=== PATIENT | male | born 1945 | race Caucasian/White ===

== ENCOUNTER 2021-03-23 13:34 | Observation (INO) ==
[2021-03-23] MEDS ORDERED: Heparin IV Adult Wt-Based Low-Dose WITH Bolus Protocol STA (14:02)
[2021-03-23] MEDS ORDERED: STAT IV Infusion **Titration per Protocol STA (14:02)
[2021-03-23] MEDS ORDERED: SODIUM CHLORIDE 0.9% 1000ML 1,000 ML IV ONE (14:04)
[2021-03-23] MEDS ORDERED: dilTIAZem HCL 125 MG in DEXTROSE 5% 100 ML IV SCH (14:15)
[2021-03-23] MEDS ORDERED: HEPARIN SOD (PORCINE) 1000 UNIT/ML IV ONE (14:18)
--- NOTE | 2021-03-23 14:26 | XRay Report ---
XR chest 1V portable HISTORY: 75 years-old Male Dysrhythmia COMPARISON: None TECHNIQUE: Portable AP view of the chest FINDINGS: Cardiomediastinal and hilar silhouettes are within normal limits. No pneumothorax, pleural effusion, airspace consolidation or overt pulmonary edema. Degenerative changes of the shoulders and spine. IMPRESSION: No acute process. ACT 112: Negative or not required by law. The above report was generated using voice recognition software. It may contain grammatical, syntax o r spelling errors. Electronically signed by: Huey Campos M.D. 03/23/2021 2:24 PM
[2021-03-23] MEDS ORDERED: HEPARIN SODIUM/DEXTROSE 25,000 UNITS/500 ML BAG IV SCH (14:30)
--- NOTE | 2021-03-23 14:30 | Emergency Department Note ---
Impression & Plan Atrial flutter with rapid ventricular response, Chest pain, Fatigue ED Provider Note Provider: Robson Schultz MD DATE OF SERVICE: 03/23/2021 CHIEF COMPLAINT: Fatigue, palpitations HISTORY OF PRESENT ILLNESS: Patient is a 75-year old gentleman history of BPH and hypertension presenting here today via ambulance from the [facility] urgent care. Patient states over the past approximately 3 weeks has had some episodes of fatigue. He is very active normally and normally cycles but this is been a bit more difficult. Was a little bit of onset of a little bit of left chest and arm pain 1 out of 10 but he states is minimal in nature. States he donated blood about 3 weeks ago and they noted there that his pulse was occasionally irregular. Denies any known history of arrhythmias. Patient received nitroglycerin and aspirin prior to arrival. No real change in his minimal chest and left arm discomfort. He denies any significant shortness of breath or leg swelling. No fevers reported. REVIEW OF SYSTEMS: A total of 10 review of systems was obtained and negative except as stated above in the HPI. 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 NECK: Trachea midline. LUNGS: Airway patent. No retractions. Breath sounds clear HEART: Regular tachycardic rate and rhythm. No chest wall tenderness ABDOMEN: Soft and non-tender, without guarding or rebound. SKIN: Acyanotic, warm, dry, without rashes EXTREMITIES: Without swelling, tenderness or deformity NEUROLOGICAL: No focal deficits. No aphasia. No facial droop or slurred speech. Ambulatory EK bpm atrial fibrillation with variable AV block. No acute ST segment elevation noted with some slight lateral ST depression noted. QTc 532. CONTINUOUS CARDIAC MONITORING: was ordered and showed a heart rate of 100s-130s bpm in atrial flutter variable AV block Patient's laboratory studies and imaging reviewed. Differential includes Premature contractions, electrolyte abnormality, cardiac dysrhythmia, thyroid dysfunction, pulmonary embolism, infection, gastrointe stinal, as well as other pathologies. IMPRESSION/MEDICAL DECISION MAKING: Patient received aspirin prior to arrival but not normally on. Appears to be a new onset atrial flutter. Do not believe the patient is having an acute ST segment elevation UT. Patient with minimal 1 at a time chest and left arm discomfort. Possibly right related. No evidence of acute heart failure on clinical exam. Electrolytes and thyroid studies were sent. No significant abnormality. Given some magnesium as well some IV fluid for hydration. Will attempt a diltiazem drip gently to try and promote rate control versus possible conversion. Patient is not unstable but blood pressures are in the low 100s thus we will start with a drip and avoid significant bolus. Discussed with the patient and will anticoagulate this time. Onset of symptoms may be several weeks ago and thus hesitant to perform any direct cardioversion at this time unless patient becomes unstable. Patient requires admission for further cardiac evaluation and treatment of his new onset atrial flutter. DIAGNOSIS: New onset atrial flutter, fatigue, chest pain DISPOSITION: Hospitalist will evaluate Patient was agreeable with this plan. Critical Care I have personally spent 31 minutes of critical care time in the direct management of this patient. This includes bedside care, interpretation of diagnostic studies, and testing, discussion with consultants, patient, and other required patient management activities. These 31 minutes is in excess of all separately billable procedures. Past Med/Surg History Medical History Benign prostatic hyperplasia (BPH) with urinary urgency Surgical History No pertinent past surgical history Social History Smoking Status: Never smoker Preferred Language: Latvian Feels Safe at Home: Yes Allergies Allergies Allergy/AdvReac Type Severity Reaction Status Date / Time No Known Allergies Allergy Verified 03/23/21 15:03 Home Meds Home Medications Medication Instructions Recorded Confirmed indapamide 2.5 mg tablet 2.5 mg PO DAILY 03/23/21 03/23/21 pravastatin 40 mg tablet 40 mg PO HS 03/23/21 03/23/21 quinapril 40 mg tablet 60 mg PO DAILY 03/23/21 03/23/21 tamsulosin 0.4 mg capsule 0.4 mg PO DAILY 03/23/21 03/23/21 Results & Data (ED) Vital Signs Vital Signs - 24 hr 03/23/21 13:40 03/23/21 14:08 03/23/21 15:01 Temperature 36.7 C Temperature Source Oral Pulse Rate 136 H Pulse Rate [Right Finger] 108 H Respiratory Rate 24 20 Respiratory Effort / Characteristics Non-Labored Non-Labored Non-Labored Respiratory Depth Normal Normal Blood Pressure 93/77 L Blood Pressure [Right Arm] 111/70 Blood Pressure Mean 82 Blood Pressure Mean [Right Arm] 83 Pulse Oximetry 97 98 Oxygen Delivery Method Room Air Room Air Room Air Sepsis Recent Fever Within 48 Hours No Sepsis New/Unexplained Change in Mental Status N/A Sepsis Action Taken by Nursing No Action Required 03/23/21 15:13 Temperature Temperature Source Pulse Rate Pulse Rate [Right Finger] 132 H Respiratory Rate 16 Respiratory Effort / Characteristics Non-Labored Respiratory Depth Normal Blood Pressure Blood Pressure [Right Arm] 139/85 Blood Pressure Mean Blood Pressure Mean [Right Arm] 103 Pulse Oximetry 97 Oxygen Delivery Method Room Air Sepsis Recent Fever Within 48 Hours Sepsis New/Unexplained Change in Mental Status Sepsis Action Taken by Nursing Laboratory Data Result diagrams: 03/23/21 14:24 03/23/21 14:24 Lab Results 03/23/21 03/23/21 03/23/21 Range/Units 14:24 14:24 14:24 WBC 6.46 (4.8-10.8) K/uL RBC 4.45 L (4.7-6.1) M/uL Hgb 13.9 L (14.0-18.0) g/dL Hct 40.7 L (42-52) % MCV 91.5 (80-100) fL MCH 31.2 (25-34) pg MCHC 34.2 (32-36) g/dL RDW Std Deviation 43.4 (36.4-46.3) fL RDW Coeff of Devon 13.0 (11.5-14.5) % Plt Count 196 (130-400) K/uL MPV 9.6 (7.4-10.4) fL Immature Gran % (Auto) 0.2 % Neut % (Auto) 63.4 % Lymph % (Auto) 29.6 % [place] % (Auto) 6.0 % Eos % (Auto) 0.6 % Baso % (Auto) 0.2 % Neut # (Auto) 4.10 (1.4-6.5) K/uL Lymph # (Auto) 1.91 (1.2-3.4) K/uL [place] # (Auto) 0.39 (0.11-0.59) K/uL Eos # (Auto) 0.04 (0-0.5) K/uL Baso # (Auto) 0.01 (0-0.2) K/uL Immature Gran # (Auto) 0.01 (0.00-0.02) K/uL PT 9.9 (9.0-12.0) Seconds INR 1.0 (0.9-1.1) APTT 27.9 (21.0-31.0) Seconds PTT Ratio 1.1 Sodium 139 (136-145) mmol/L Potassium 3.6 (3.5-5.1) mmol/L Chloride 104 (98-107) mmol/L Carbon Dioxide 31 (21-32) mmol/L Anion Gap 4.0 (3-11) BUN 20 H (7-18) mg/dl Creatinine 1.08 (0.6-1.4) mg/dl Est Cr Clr Drug Dosing 67.1 ml/min Est GFR ( Amer) 78.0 ml/min Est GFR (Non-Af Amer) 67.3 ml/min BUN/Creatinine Ratio 18.9 (10-20) Glucose 107 H (70-99) mg/dl Calcium 9.3 (8.5-10.1) mg/dl Magnesium 2.2 (1.8-2.4) mg/dl Total Bilirubin 0.6 (0.2-1) mg/dl AST 22 (15-37) U/L ALT 33 (12-78) U/L Alkaline Phosphatase 81 (45-117) U/L Troponin I < 0.015 (0-0.045) ng/ml Total Protein 7.1 (6.4-8.2) gm/dl Albumin 4.0 (3.4-5.0) gm/dl Globulin 3.1 (2.5-4.0) gm/dl Albumin/Globulin Ratio 1.3 (0.9-2) TSH 1.890 (0.300-4.500) uIu/ml Lyme Disease IgG Ab (Negative) Lyme Disease IgM Ab (Negative) 03/23/21 Range/Units 14:24 WBC (4.8-10.8) K/uL RBC (4.7-6.1) M/uL Hgb (14.0-18.0) g/dL Hct (42-52) % MCV (80-100) fL MCH (25-34) pg MCHC (32-36) g/dL RDW Std Deviation (36.4-46.3) fL RDW Coeff of Devon (11.5-14.5) % Plt Count (130-400) K/uL MPV (7.4-10.4) fL Immature Gran % (Auto) % Neut % (Auto) % Lymph % (Auto) % [place] % (Auto) % Eos % (Auto) % Baso % (Auto) % Neut # (Auto) (1.4-6.5) K/uL Lymph # (Auto) (1.2-3.4) K/uL [place] # (Auto) (0.11-0.59) K/uL Eos # (Auto) (0-0.5) K/uL Baso # (Auto) (0-0.2) K/uL Immature Gran # (Auto) (0.00-0.02) K/uL PT (9.0-12.0) Seconds INR (0.9-1.1) APTT (21.0-31.0) Seconds PTT Ratio Sodium (136-145) mmol/L Potassium (3.5-5.1) mmol/L Chloride (98-107) mmol/L Carbon Dioxide (21-32) mmol/L Anion Gap (3-11) BUN (7-18) mg/dl Creatinine (0.6-1.4) mg/dl Est Cr Clr Drug Dosing ml/min Est GFR ( Amer) ml/min Est GFR (Non-Af Amer) ml/min BUN/Creatinine Ratio (10-20) Glucose (70-99) mg/dl Calcium (8.5-10.1) mg/dl Magnesium (1.8-2.4) mg/dl Total Bilirubin (0.2-1) mg/dl AST (15-37) U/L ALT (12-78) U/L Alkaline Phosphatase (45-117) U/L Troponin I (0-0.045) ng/ml Total Protein (6.4-8.2) gm/dl Albumin (3.4-5.0) gm/dl Globulin (2.5-4.0) gm/dl Albumin/Globulin Ratio (0.9-2) TSH (0.300-4.500) uIu/ml Lyme Disease IgG Ab Negative (Negative) Lyme Disease IgM Ab Negative (Negative) Administered Medications Diltiazem HCl 125 mg/ Dextrose 125 mls @ 5 mls/hr IV .Q24H XAVIER; Protocol Stop: 04/22/21 14:14 Last Admin: 03/23/21 15:02 Dose: 5 mg/hr, 5 mls/hr Documented by: [id number] Cosigned by: [id number] Heparin Sodium/Dextrose (Heparin Sodium/Dextrose) 25,000 units in 500 mls @ 0.02 mls/hr IV .Q24H XAVIER; Protocol Stop: 04/22/21 14:29 Last Admin: 03/23/21 14:57 Dose: 950 units/hr, 19 mls/hr Documented by: [id number] Cosigned by: [id number] Discontinued Medications Heparin Sodium (Porcine) (Heparin Sod (Porcine) 1000 Unit/Ml) 1 units IV NOW ONE Stop: 03/23/21 14:19 Last Admin: 03/23/21 14:53 Dose: 4,000 units Documented by: [id number] Cosigned by: [id number] Heparin Sodium/Dextrose (Heparin Iv Adult Wt-Based Low-Dose With Bolus Protocol) 1 ea N/A NOW STA; Protocol Stop: 03/23/21 14:03 Last Admin: 03/23/21 15:16 Dose: Not Given Documented by: [id number] Sodium Chloride (Nss 1000ml) 1,000 mls @ 999 mls/hr IV .Q1H1M ONE Stop: 03/23/21 15:04 Last Admin: 03/23/21 14:51 Dose: 999 mls/hr Documented by: [id number] Miscellaneous (Stat Iv Infusion Titration Per Protocol) 1 ea N/A NOW STA Stop: 03/23/21 14:03 Last Admin: 03/23/21 14:57 Dose: 1 ea Documented by: [id number] Imaging Data Radiologist's Impression: Chest X-Ray 03/23/21 14:02 XR chest 1V portable HISTORY: 75 years-old Male Dysrhythmia COMPARISON: None TECHNIQUE: Portable AP view of the chest FINDINGS: Cardiomediastinal and hilar silhouettes are within normal limits. No pneumothorax, pleural effusion, airspace consolidation or overt pulmonary edema. Degenerative changes of the shoulders and spine. IMPRESSION: No acute process. ACT 112: Negative or not required by law. The above report was generated using voice recognition software. It may contain grammatical, syntax or spelling errors. Electronically signed by: Huey Campos M.D. 03/23/2021 2:24 PM Discharge Plan Visit Data Chief Complaint: Chest Pain ED Provider: Robson Schultz Discharge Problem: Atrial flutter with rapid ventricular response, Chest pain, Fatigue Patient Disposition: Being Evaluated by Hospitalist Forms Stand Alone Forms: [facility] Prescriptions Prescriptions: No Action indapamide 2.5 mg tablet 2.5 mg PO DAILY RF: 0 pravastatin 40 mg tablet 40 mg PO HS RF: 0 quinapril 40 mg tablet 60 mg PO DAILY RF: 0 tamsulosin 0.4 mg capsule 0.4 mg PO DAILY RF: 0 Referrals Referrals: Aaron Stevens MD [Primary Care Provider] - Discharge Problem: Chest pain Qualifiers: Chest pain type: unspecified Qualified Code(s): R07.9 - Chest pain, unspecified Fatigue Qualifiers: Fatigue type: unspecified Qualified Code(s): R53.83 - Other fatigue
[2021-03-23 14:35] LABS: Basophils # (auto) 0.01 K/uL (0-0.2); Basophils % (auto) 0.2 %; Eosinophils # (auto) 0.04 K/uL (0-0.5); Eosinophils % (auto) 0.6 %; Hematocrit (blood only) 40.7 % (42-52); Hemoglobin 13.9 g/dL (14.0-18.0); Immature Granulocytes # (auto) 0.01 K/uL (0.00-0.02); Immature Granulocytes % (auto) 0.2 %; Lymphocytes # (auto) 1.91 K/uL (1.2-3.4); Lymphocytes % (auto) 29.6 %; Mean Corpuscular Hemoglobin 31.2 pg (25-34); Mean Corpuscular Hgb Conc 34.2 g/dL (32-36); Mean Corpuscular Volume 91.5 fL (80-100); Mean Platelet Volume 9.6 fL (7.4-10.4); Monocytes # (auto) 0.39 K/uL (0.11-0.59); Neutrophils % (auto) 63.4 %; Platelet Count 196 K/uL (130-400); RDW Standard Deviation 43.4 fL (36.4-46.3); Red Blood Count 4.45 M/uL (4.7-6.1); White Blood Count 6.46 K/uL (4.8-10.8)
[2021-03-23 14:49] LABS: Partial Thromboplastin Ratio 1.1; Partial Thromboplastin Time 27.9 Seconds (21.0-31.0); Prothrombin Time 9.9 Seconds (9.0-12.0)
[2021-03-23 14:54] LABS: Alanine Aminotransferase 33 U/L (12-78); Aspartate Aminotransferase 22 U/L (15-37); BUN Creatinine Ratio 18.9 (10-20); Blood Urea Nitrogen 20 mg/dl (7-18); Calcium 9.3 mg/dl (8.5-10.1); Carbon Dioxide 31 mmol/L (21-32); Chloride 104 mmol/L (98-107); Creatinine Clr Calc Pharmacy 67.1 ml/min; Est GFR (Non-African American) 67.3 ml/min; Glucose 107 mg/dl (70-99); Magnesium 2.2 mg/dl (1.8-2.4); Potassium 3.6 mmol/L (3.5-5.1); Sodium 139 mmol/L (136-145)
[2021-03-23 15:05] LABS: Albumin Globulin Ratio 1.3 (0.9-2); Alkaline Phosphatase 81 U/L (45-117); Bilirubin,Total 0.6 mg/dl (0.2-1); Globulin 3.1 gm/dl (2.5-4.0); Total Protein 7.1 gm/dl (6.4-8.2); Troponin I < 0.015 ng/ml (0-0.045)
[2021-03-23 15:19] LABS: Lyme Ab IgG w/WB Rflx Negative (Negative); Lyme Ab IgM w/WB Rflx Negative (Negative)
[2021-03-23] MEDS ORDERED: POTASSIUM CHLORIDE CRTAB 20 MEQ TABCR PO ONE (15:26)
[2021-03-23] MEDS: MAGNESIUM SULFATE / D5W 1 GM/100 ML BAG IV SCH ×2 (15:39→16:38)
--- NOTE | 2021-03-23 16:07 | History & Physical Report ---
Date of Service March 23, 2021 Assessment & Plan (1) Atrial flutter with rapid ventricular response: Plan: -Admit to telemetry -Patient presenting by referral of [facility] for evaluation of new onset atrial flutter with RVR. Patient has had palpitations and decreased exercise tolerance over the past few days. -In the ED, EKG shows atrial flutter with a variable conduction block with rates in the 120s -?? Due to lack of CPAP use over the past 1 month due to machine recall -Labs and CXR unremarkable -Started on IV diltiazem and heparin drips in the ED, continue both -Start metoprolol 12.5 mg PO BID -Trend troponin -Resting echo -Cardiology consult, input appreciated (2) HTN (hypertension): Plan: -BP on the lower side on presentation, likely due to tachycardia -Hold home indapamide and quinapril due to diltiazem and metoprolol as above (3) ANA on CPAP: Plan: -CPAP as per home settings (4) DVT prophylaxis: Plan: -On IV heparin drip History of Present Illness Chief Complaint: Palpitations Primary Care Provider: Aaron Stevens MD 75 year old male with PMH HTN, BPH, ANA on CPAP, prediabetes, and other problems listed below who presents to the ED for evaluation of palpitations. Patient reports that over the past few days he has been having palpitations and increased fatigue. 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 Today he had a mild left sided chest pain. He has a stethoscope at home and was able to listen to this own heart and noted it was fast and irregular. Patient presented to [facility] and was found to be in a. flutter RVR. He was sent to the ED for further evaluation. Patient reports he otherwise has been well recently. He denies shortness of breath. No lightheadedness, dizziness, diaphoresis, or syncopal events. He denies abdominal pain, nausea, vomiting, and diarrhea. No urinary symptoms. Patient reports that he has been unable to use his CPAP for the past 1 month due to machine recall. In the ED, EKG shows an atrial flutter with variable conduction rate in the 120s. Labs are unremarkable. Patient was started on diltiazem and heparin drips. He was also given some IVF. Allergies Allergy/AdvReac Type Severity Reaction Status Date / Time No Known Allergies Allergy Verified 03/23/21 15:03 Home Medications Medication Instructions Recorded Confirmed Type indapamide 2.5 mg tablet 2.5 mg PO DAILY 03/23/21 03/23/21 History multivitamin 1 tab PO DAILY 03/23/21 03/23/21 History pravastatin 40 mg tablet 40 mg PO HS 03/23/21 03/23/21 History quinapril 40 mg tablet 60 mg PO DAILY 03/23/21 03/23/21 History tamsulosin 0.4 mg capsule 0.4 mg PO DAILY 03/23/21 03/23/21 History Past Med/Surg History Medical History Benign prostatic hyperplasia (BPH) with urinary urgency History of COVID-19 HLD (hyperlipidemia) HTN (hypertension) ANA on CPAP Prediabetes Surgical History H/O arthroscopic knee surgery H/O shoulder surgery Family History (Updated 03/23/21 @ 17:21 by LEIA Pappas) Father Heart disease Social History Smoking Status: Never smoker Hx Alcohol Use: Yes Alcohol Intake Frequency: Monthly or Less Preferred Language: Eritrean Feels Safe at Home: Yes Review of Systems Review of Systems: ROS per HPI, all other systems reviewed and negative Physical Exam Physical Exam: please refer to Dr. Roldan's addendum for physical exam Results & Data Results & Data ([facility]) Vital Signs (Past 12 Hours) Vital Signs Temp Pulse Pulse Resp BP BP Pulse Ox 03/23/21 15:13 132 H 16 139/85 97 03/23/21 15:01 108 H 20 111/70 98 03/23/21 13:40 36.7 C 136 H 24 93/77 L 97 Laboratory Results Short CBC 03/23/21 Range/Units 14:24 WBC 6.46 (4.8-10.8) K/uL Hgb 13.9 L (14.0-18.0) g/dL Hct 40.7 L (42-52) % Plt Count 196 (130-400) K/uL BMP 03/23/21 14:24 Sodium 139 Potassium 3.6 Chloride 104 Carbon Dioxide 31 BUN 20 H Creatinine 1.08 Glucose 107 H Calcium 9.3 Cardiac Enzymes 03/23/21 Range/Units 14:24 Troponin I < 0.015 (0-0.045) ng/ml Liver Function 03/23/21 Range/Units 14:24 Total Bilirubin 0.6 (0.2-1) mg/dl AST 22 (15-37) U/L ALT 33 (12-78) U/L Alkaline Phosphatase 81 (45-117) U/L Albumin 4.0 (3.4-5.0) gm/dl Diagnostic Findings Chest X-Ray 03/23/21 14:02 XR chest 1V portable HISTORY: 75 years-old Male Dysrhythmia COMPARISON: None TECHNIQUE: Portable AP view of the chest FINDINGS: Cardiomediastinal and hilar silhouettes are within normal limits. No pneumothorax, pleural effusion, airspace consolidation or overt pulmonary edema. Degenerative changes of the shoulders and spine. IMPRESSION: No acute process. ACT 112: Negative or not required by law. The above report was generated using voice recognition software. It may contain grammatical, syntax or spelling errors. Electronically signed by: Huey Campos M.D. 03/23/2021 2:24 PM Code Status & VTE Plan VTE Prophylaxis Plan VTE Prophylaxis will be ordered: No Supervising Physician Co-Signing Physician Notes Patient is a 75-year-old male with history of hypertension, obstructive sleep apnea, prediabetes and other medical problems presents with history of palp itations, generalized fatigue, minimal left chest discomfort. Please review HPI for complete details of presentation. He was found to be in atrial flutter RVR while in ED. He denies any dizziness, syncopal episode, bleeding issues, nausea, vomiting, fever, chills. Started on IV heparin and Cardizem drip while in ED. TSH within normal limits. Chest x-ray showed no acute process. He admits to being noncompliant with CPAP lately as it was recalled. Physical Exam: Vitals signs as noted above General Appearance:Moderately built and nourished, no apparent distress Head: normocephalic, Atraumatic Eyes: normal inspection, EOMI Neck: supple, Trachea midline Respiratory/Chest: Normal breath sounds, CTA, No accessory muscle use Cardiovascular: Irregularly irregular, tachycardia, No murmur Abdomen/GI:Soft, Non tender, Bowel sounds present Extremities/Musculoskeletal:normal inspection, no edema Neurologic/Psych:AAOX3, grossly no focal neurological deficits Skin: normal color, warm Atrial flutter RVR TSH within normal limits Agree with IV Cardizem, heparin drip Agree with starting metoprolol Cardiology consulted Monitor and replace electrolytes as needed Gentle IV fluids Prediabetes Update HbA1c I personally reviewed the record. Patient is interviewed and examined at bedside. Patient's care is coordinated with Yoli Farmer [employer]. Please refer to the documentation above for details of patient's presentation and for discussion of other issues.
[2021-03-23] MEDS ORDERED: ALPRAZolam 0.25 MG TABLET PO PRN (18:37)
[2021-03-23] MEDS ORDERED: METOPROLOL TARTRATE 25 MG TAB PO SCH (19:38)
[2021-03-23] MEDS ORDERED: SODIUM CHLORIDE 0.9% 1000ML 1,000 ML IV SCH (19:38)
[2021-03-23] MEDS ORDERED: ACETAMINOPHEN 325 MG TAB PO PRN (19:38)
[2021-03-23] MEDS ORDERED: METOPROLOL TARTRATE 25 MG TAB PO STA (19:42)
[2021-03-23] MEDS ORDERED: PRAVASTATIN SOD 40 MG TAB PO SCH (21:00)
--- NOTE | 2021-03-23 23:02 | Communication Note ---
Date of Service: March 23, 2021 Hematuria noted by RN sometime after Dugan catheter insertion. Dugan catheter insertion procedure smooth as per RN. Patient without abdominal/flank complaints as per RN. AP Painless hematuria Ongoing IV anticoagulation for atrial flutter Check UA rule out UTI Check CBC Hold IV heparin for now. Resume IV heparin if hemoglobin stable. Will relay to AM provider.
[2021-03-23 23:24] LABS: Basophils # (auto) 0.01 K/uL (0-0.2); Basophils % (auto) 0.1 %; Eosinophils # (auto) 0.02 K/uL (0-0.5); Eosinophils % (auto) 0.2 %; Hematocrit (blood only) 41.7 % (42-52); Hemoglobin 14.2 g/dL (14.0-18.0); Immature Granulocytes # (auto) 0.01 K/uL (0.00-0.02); Immature Granulocytes % (auto) 0.1 %; Lymphocytes # (auto) 1.63 K/uL (1.2-3.4); Lymphocytes % (auto) 19.4 %; Mean Corpuscular Hemoglobin 31.7 pg (25-34); Mean Corpuscular Hgb Conc 34.1 g/dL (32-36); Mean Corpuscular Volume 93.1 fL (80-100); Mean Platelet Volume 9.7 fL (7.4-10.4); Monocytes # (auto) 0.41 K/uL (0.11-0.59); Monocytes % (auto) 4.9 %; Neutrophils # (auto) 6.33 K/uL (1.4-6.5); Neutrophils % (auto) 75.3 %; Platelet Count 221 K/uL (130-400); RDW Standard Deviation 44.5 fL (36.4-46.3); Red Blood Count 4.48 M/uL (4.7-6.1); White Blood Count 8.41 K/uL (4.8-10.8)
[2021-03-23 23:42] LABS: Partial Thromboplastin Ratio 1.3; Partial Thromboplastin Time 35.4 Seconds (21.0-31.0)
[2021-03-23 23:46] LABS: Appearance Urine Clear (Clear); Bacteria Urine Automated Negative (Negative); Bilirubin Urine Negative (Negative); Blood Urine 3+ (Negative); Cast Urine Automated 0 /lpf (0-5); Color Urine Orange; Glucose Urine UA Negative (Negative); Ketones Urine Negative (Negative); Leukocyte Esterase Urine Negative (Negative); Nitrite Urine Negative (Negative); Protein Urine Negative (Negative); RBC Urine Automated >30 /hpf (0-4); Urobilinogen Urine Negative (Negative)
[2021-03-23] MEDS: METOPROLOL TARTRATE 25 MG TAB PO SCH (23:57)
[2021-03-24] MEDS ORDERED: HEPARIN SOD (PORCINE) 1000 UNIT/ML IV ONE (02:00)
[2021-03-24 05:24] LABS: Hematocrit (blood only) 40.2 % (42-52); Hemoglobin 13.6 g/dL (14.0-18.0); Mean Corpuscular Hemoglobin 31.1 pg (25-34); Mean Corpuscular Hgb Conc 33.8 g/dL (32-36); Mean Platelet Volume 9.8 fL (7.4-10.4); Platelet Count 193 K/uL (130-400); RDW Coefficient of Variation 13.2 % (11.5-14.5); RDW Standard Deviation 44.2 fL (36.4-46.3); Red Blood Count 4.37 M/uL (4.7-6.1); White Blood Count 6.88 K/uL (4.8-10.8)
[2021-03-24 05:38] LABS: Calcium 9.1 mg/dl (8.5-10.1); Creatinine Clr Calc Pharmacy 71.8 ml/min; Est GFR (African American) 84.5 ml/min; Est GFR (Non-African American) 72.9 ml/min; Magnesium 2.3 mg/dl (1.8-2.4); Potassium 3.8 mmol/L (3.5-5.1)
[2021-03-24] MEDS: METOPROLOL TARTRATE 25 MG TAB PO SCH (07:09)
[2021-03-24 07:53] LABS: Partial Thromboplastin Ratio 1.7; Partial Thromboplastin Time 44.5 Seconds (21.0-31.0)
[2021-03-24] MEDS ORDERED: POTASSIUM CHLORIDE CRTAB 20 MEQ TABCR PO ONE (08:54)
[2021-03-24] MEDS ORDERED: TAMSULOSIN HCL 0.4 MG CAP PO SCH (09:00)
--- NOTE | 2021-03-24 09:27 | Cardiology Consultation ---
Date of Consultation March 24, 2021 Assessment & Plan (1) Atrial flutter with rapid ventricular response: Patient presented with symptomatic atrial flutter with rapid ventricular spots, at least 5 days duration. Subsequently converted to normal sinus rhythm at 12:12 AM 03/24/2021 on a diltiazem infusion having received one dose of Oral metoprolol tartrate 25 mg. Echocardiogram reveals normal biventricular systolic function, mild MR, normal left atrial size. Mild aortic root enlargement, 4.1 cm, no pulmonary HTN. His [id number] score is 2 for risk factors of age > 65, and h/o HTN. And therefore systemic anticoagulation is recommended for stroke prophylaxis. We discussed options such as a direct oral anticoagulant, perhaps Eliquis, or Coumadin. I called his outpatient [facility], [facility], it was determined that he would have a deductible of $210.26 to meet and then a copy of $47 for a one month supply. I am not sure if he is elibigle for a one month rebate card. Will discontinue heparin infusion, and the Dugan catheter. If able to void on his own without hematuria will then consider starting Eliquis or coumadin depending on patient preference. Patient encouraged to research his insurance formulary. Will start low dose metoprolol succinate 25 mg now. Depending on progress, perhaps for discharge later today. (2) Benign prostatic hyperplasia (BPH) with urinary urgency: -As noted above and continue Flomax. (3) HTN (hypertension): Continue MANAGER ED indapamide and Quinapril, flomax. (4) Atrial septal aneurysm: Would otherwise continue low dose ASA for stroke prevention, however, pt requires full systemic anticoagulation given AFL. (5) Aortic root enlargement: 4.1 cm. Normal aortic valve structure and function. Continue BP treatment. Update echo in 6 months as outpt to ensure stable diameter, if stable, likely follow at 12 month interval thereafter. History of Present Illness Attending Physician: Jim Roldan MD History of Present Illness Burton Rosas is a 75 year old male seen in cardiology consultation per the [facility] of newly diagnosed atrial flutter with rapid ventricular rate. He describes himself as being physically active. He rides his bicycle 2 to 3 days/week, the distance of 30 miles, but he notes over the last month he has been having more fatigue. 5 days prior to presentation he felt that his heart rate was fast and irregular. Yesterday, this persisted, prompting him to go to a local urgent care center. EKG performed yesterday 03/23/21 at the [facility] walk in clinic revealed atrial flutter at 109 bpm. Compared to the prior tracing performed 02/09/20 AFL with rapid ventricular response replaced sinus bradycardia with incomplete right bundle branch block and the ventricular rate had increased by 58 bpm. Repeat tracing upon arrival to the ED was similar to that at the urgent care clinic. The patient was admitted and transferred from the ED to room 104 as a telemetry overflow patient. A diltiazem infusion was started along with oral metoprolol with subsequent conversion to sinus rhythm on 03/24/21 at 12:12 AM . Repeat EKG this am reveals sinus bradycardia at [address] segments. Of note, shortly after admission the patient felt that he could not void as he felt "tense ". A Dugan catheter was therefore placed last evening, With appropriate urine outflow, but then blood-tinged urine was noted perhaps due to trauma the Dugan catheter. His heparin was transiently held, and then restarted. Currently, clear yellow urine is draining from his Dugan catheter tubing. Past Medical History: obstructive sleep apnea, hypertension, BPH, and dyslipidemia. He was diagnosed with COVID-19 in 05/2020. 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 He is a non-smoker. Family History: The patient has 6 siblings. He has a sister who due to complications of multiple sclerosis. He has a younger brother who is 70 years old and also has a history of "irregular heartbeat ". Details unknown. The patient's father at the age of 53. 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 He reportedly had 2 previous myocardial infarction events, and then at home of what sounds like a third heart event. The patient's mother at the age of 93, it is unclear whether or not she had history of heart disease. Allergies Allergy/AdvReac Type Severity Reaction Status Date / Time No Known Allergies Allergy Verified 03/23/21 15:03 Home Medications Medication Instructions Recorded Confirmed Type indapamide 2.5 mg tablet 2.5 mg PO DAILY 03/23/21 03/23/21 History multivitamin 1 tab PO DAILY 03/23/21 03/23/21 History pravastatin 40 mg tablet 40 mg PO HS 03/23/21 03/23/21 History quinapril 40 mg tablet 60 mg PO DAILY 03/23/21 03/23/21 History tamsulosin 0.4 mg capsule 0.4 mg PO DAILY 03/23/21 03/23/21 History Patient History Medical History Benign prostatic hyperplasia (BPH) with urinary urgency History of COVID-19 HLD (hyperlipidemia) HTN (hypertension) ANA on CPAP Prediabetes Surgical History H/O arthroscopic knee surgery H/O shoulder surgery Family History Father Heart disease Social History Smoking Status: Never smoker Hx Alcohol Use: No Hx Substance Use: No Preferred Language: Mongolian Communication Ability: Effective Manager Cath Lab Required: No Beliefs That Will Affect Care: None Current Living Situation: Spouse Other Information That Helps Us Care for You: No Feels Safe at Home: Yes Safety Concerns: Feels Safe At This Time Assistive Devices: None Review of Systems Review of Systems: All systems reviewed & are unremarkable except as noted in HPI & below Physical Exam Physical Exam: Temp Pulse Resp BP Pulse Ox 37.0 C 60 18 133/83 95 03/24/21 05:29 03/24/21 06:25 03/24/21 06:25 03/24/21 06:25 03/24/21 06:25 Constitutional: WD/WN, vitals as above Respiratory: normal respiratory effort, lungs clear to auscultation Cardiovascular: RRR, no murmur, no edema Gastrointestinal (Abdomen): normal bowel sounds, soft, nontender, no hepatosplenomegaly Neurologic: PERRL, EOMI, accommodation nl, no face palsy, no dysarthria Genitourinary: Dugan catheter in place draining clear yellow urine. Results & Data ([facility]) Vital Signs (Past 12 Hours) Vital Signs Temp Pulse Resp BP Pulse Ox 03/24/21 06:25 60 18 133/83 95 03/24/21 05:29 37.0 C 03/24/21 05:25 56 L 11 L 120/77 97 03/24/21 04:25 58 L 18 139/82 96 03/24/21 03:25 56 L 15 113/77 95 03/24/21 02:25 58 L 18 118/75 95 03/24/21 01:25 56 L 16 123/76 95 03/24/21 00:25 53 L 14 102/67 94 03/24/21 00:11 41 L 03/24/21 00:00 69 03/23/21 23:04 56 L 11 L 117/73 95 03/23/21 22:25 70 9 L 134/83 97 03/23/21 22:00 37.1 C 03/23/21 21:26 95 H 28 H 110/68 93 Laboratory Results Cardiac Enzymes 03/23/21 03/23/21 03/24/21 Range/Units 14:24 20:20 01:47 AST 22 (15-37) U/L Troponin I < 0.015 < 0.015 < 0.015 (0-0.045) ng/ml Coagulation 03/23/21 03/23/21 03/24/21 Range/Units 14:24 23:07 07:30 PT 9.9 (9.0-12.0) Seconds APTT 27.9 35.4 H 44.5 H (21.0-31.0) Seconds CBC 03/23/21 03/23/21 03/24/21 Range/Units 14:24 23:07 05:11 WBC 6.46 8.41 6.88 (4.8-10.8) K/uL RBC 4.45 L 4.48 L 4.37 L (4.7-6.1) M/uL Hgb 13.9 L 14.2 13.6 L (14.0-18.0) g/dL Hct 40.7 L 41.7 L 40.2 L (42-52) % Plt Count 196 221 193 (130-400) K/uL Neut # (Auto) 4.10 6.33 (1.4-6.5) K/uL Lymph # (Auto) 1.91 1.63 (1.2-3.4) K/uL [place] # (Auto) 0.39 0.41 (0.11-0.59) K/uL Eos # (Auto) 0.04 0.02 (0-0.5) K/uL Baso # (Auto) 0.01 0.01 (0-0.2) K/uL Comprehensive Metabolic Panel 03/23/21 03/24/21 Range/Units 14:24 05:11 Sodium 139 140 (136-145) mmol/L Potassium 3.6 3.8 (3.5-5.1) mmol/L Chloride 104 106 (98-107) mmol/L Carbon Dioxide 31 31 (21-32) mmol/L BUN 20 H 17 (7-18) mg/dl Creatinine 1.08 1.01 (0.6-1.4) mg/dl Glucose 107 H 124 H (70-99) mg/dl Calcium 9.3 9.1 (8.5-10.1) mg/dl AST 22 (15-37) U/L ALT 33 (12-78) U/L Alkaline Phosphatase 81 (45-117) U/L Total Protein 7.1 (6.4-8.2) gm/dl Albumin 4.0 (3.4-5.0) gm/dl Intake and Output 03/23/21 03/24/21 03/24/21 22:59 06:59 14:59 Intake Total 1407.583 / 1416.083 8.5 / 1416.083 160.600 / 160.600 Output Total 1250 / 1900 650 / 1900 Balance 157.583 / -483.917 -641.5 / -483.917 160.600 / 160.600 Intake: IV 1407.583 / 1416.083 8.5 / 1416.083 160.600 / 160.600 Heparin Sodium/Dextrose 25,000 0 / 0 160.600 / 160.600 units In 500 ml @ 1,100 UNITS/ HR 22 mls/hr IV .[id number] [facility] Rx #:[id number] Magnesium Sulfate / D5w 1 gm In 200 / 200 100 ml @ 600 mls/hr IV Q10M [facility] Rx#:[id number] Sodium Chloride 0.9% 1000ML 1, 1000 / 1000 000 ml @ 999 mls/hr IV .Q1H1M [facility] Rx#:[id number] dilTIAZem HCL 125 mg In 55.583 / 64.083 8.5 / 64.083 0 / 0 Dextrose 5% 100 ml @ 0 MG/HR IV .Q0M [facility] Rx#:[id number] Oral 0 / 0 Output: Urine Amount (Catheter) 1250 / 1900 650 / 1900 Dugan/Indwelling 1250 / 1900 650 / 1900 Other: Weight 91.6 kg 91.6 kg Weight Measurement Method Standing Scale Built in [facility]
[2021-03-24] MEDS ORDERED: METOPROLOL SUCC 25MG EXT REL TAB PO SCH (10:45)
--- NOTE | 2021-03-24 11:10 | Communication Note ---
Date of Service: March 24, 2021 Heparin gtt now discontinue. Dugan catheter removed. If patient able to void without hematuria, will start Eliquis. Cost acceptable to patient. Await voiding trial. Also , per patient's prior discussion with Dr Castro of urology, TURP was considered. If TURP performed, can hold Eliquis with last dose in the evening 3 days prior to procedure. No Eliquis on the 2 days prior to procedure or day of the procedure. Resume 24 -48 hrs post op depending on surgical course.
--- NOTE | 2021-03-24 12:36 | Communication Note ---
Date of Service: March 24, 2021 pt reassessed. Only tiny amount of blood when voiding on the commode. Start Eliquis 5 mg x 1 now. Dose #2 tomorrow am. OK for discharge.
--- NOTE | 2021-03-24 12:45 | Hospitalist Progress Note ---
Date of Service March 24, 2021 Assessment & Plan (1) Atrial flutter with rapid ventricular response: Plan: Atrial flutter with rapid ventricular response: Spontaneously converted to sinus TSH normal --ECHO: Borderline concentric LVH. No regional wall motion abnormality. Left ventricle systolic function normal. EF 55 to 60%. Right ventricle is normal in size and function. Left atrial size is normal. Mild mitral regurgitation. Left ventricle diastolic function is normal. Atrial septum is aneurysmal. Interatrial septum is intact with no evidence of ASD. Aortic root is mildly dilated with diameter of 4.1 cm. The proximal ascending aorta diameter is normal. IV Cardizem and Heparin discontinued -started on metoprolol and Eliquis Appreciate Cardiology Input Needs follow up with Cardiology upon discharge Transient Hematuria Likely due to Traumatic Catheter Hb stable Resolved H/O prediabetes HbA1C:pending HTN Continue home meds ANA on CPAP: CPAP as per home settings BPH Continue Flomax Follows with DVT Px: Eliquis Code Status Full Code Disposition Home Admission and Anticipated Discharge Date Admission Date: March 23, 2021 Subjective Patient is seen and examined Spontaneously converted to sinus overnight States feeling well today Denies chest pain, dyspnea, dizziness, nausea, abdominal pain Discussed with cardiology Had transient hematuria overnight Review of Systems Review of Systems: All systems reviewed & are unremarkable except as noted in Subjective Physical Exam Physical Exam: Physical Exam: Vitals signs as noted above General Appearance:Moderately built and nourished, no apparent distress Head: normocephalic, Atraumatic Eyes: normal inspection, EOMI Neck: supple, Trachea midline Respiratory/Chest: Normal breath sounds, CTA, No accessory muscle use Cardiovascular: S1, S2, No murmur Abdomen/GI:Soft, Non tender, Bowel sounds present Extremities/Musculoskeletal:normal inspection, no edema Neurologic/Psych:AAOX3, grossly no focal neurological deficits Skin: normal color, warm Results & Data Results & Data ([facility]) Vital Signs (Past 12 Hours) Vital Signs Temp Pulse Resp BP Pulse Ox 03/24/21 06:25 60 18 133/83 95 03/24/21 05:29 37.0 C 03/24/21 05:25 56 L 11 L 120/77 97 03/24/21 04:25 58 L 18 139/82 96 03/24/21 03:25 56 L 15 113/77 95 03/24/21 02:25 58 L 18 118/75 95 03/24/21 01:25 56 L 16 123/76 95 Laboratory Results Short CBC 03/23/21 03/23/21 03/24/21 Range/Units 14:24 23:07 05:11 WBC 6.46 8.41 6.88 (4.8-10.8) K/uL Hgb 13.9 L 14.2 13.6 L (14.0-18.0) g/dL Hct 40.7 L 41.7 L 40.2 L (42-52) % Plt Count 196 221 193 (130-400) K/uL BMP 03/23/21 03/24/21 14:24 05:11 Sodium 139 140 Potassium 3.6 3.8 Chloride 104 106 Carbon Dioxide 31 31 BUN 20 H 17 Creatinine 1.08 1.01 Glucose 107 H 124 H Calcium 9.3 9.1 Cardiac Enzymes 03/23/21 03/23/21 03/24/21 Range/Units 14:24 20:20 01:47 Troponin I < 0.015 < 0.015 < 0.015 (0-0.045) ng/ml Liver Function 03/23/21 Range/Units 14:24 Total Bilirubin 0.6 (0.2-1) mg/dl AST 22 (15-37) U/L ALT 33 (12-78) U/L Alkaline Phosphatase 81 (45-117) U/L Albumin 4.0 (3.4-5.0) gm/dl Urine 03/23/21 Range/Units 22:32 Urine Color [place] Urine Appearance Clear (Clear) Urine pH 7.0 (4.5-7.5) Ur Specific [place] 1.010 (1.000-1.030) Urine Protein Negative (Negative) Urine Glucose (UA) Negative (Negative)
--- NOTE | 2021-03-24 12:56 | Discharge Summary ---
Date of Service March 24, 2021 Admission HPI Per Admitting Provider 75 year old male with PMH HTN, BPH, ANA on CPAP, prediabetes, and other problems listed below who presents to the ED for evaluation of palpitations. Patient reports that over the past few days he has been having palpitations and increased fatigue. 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 Today he had a mild left sided chest pain. He has a stethoscope at home and was able to listen to this own heart and noted it was fast and irregular. Patient presented to [facility] and was found to be in a. flutter RVR. He was sent to the ED for further evaluation. Patient reports he otherwise has been well recently. He denies shortness of breath. No lightheadedness, dizziness, diaphoresis, or syncopal events. He denies abdominal pain, nausea, vomiting, and diarrhea. No urinary symptoms. Patient reports that he has been unable to use his CPAP for the past 1 month due to machine recall. In the ED, EKG shows an atrial flutter with variable conduction rate in the 120s. Labs are unremarkable. Patient was started on diltiazem and heparin drips. He was also given some IVF. Admission Exam Per Admitting Provider Physical Exam: Vitals signs as noted above General Appearance:Moderately built and nourished, no apparent distress Head: normocephalic, Atraumatic Eyes: normal inspection, EOMI Neck: supple, Trachea midline Respiratory/Chest: Normal breath sounds, CTA, No accessory muscle use Cardiovascular: Irregularly irregular, tachycardia, No murmur Abdomen/GI:Soft, Non tender, Bowel sounds present Extremities/Musculoskeletal:normal inspection, no edema Neurologic/Psych:AAOX3, grossly no focal neurological deficits Skin: normal color, warm Principal Diagnosis Atrial flutter with rapid ventricular response Discharge Data Allergies Allergy/AdvReac Type Severity Reaction Status Date / Time No Known Allergies Allergy Verified 03/23/21 15:03 Consultations 03/23/21 15:22 ED Decision to Admit Stat 03/23/21 15:58 Consult Cardiology Routine Hospital Course (1) Atrial flutter with rapid ventricular response: Atrial flutter with rapid ventricular response: Spontaneously converted to sinus TSH normal --ECHO: Borderline concentric LVH. No regional wall motion abnormality. Left ventricle systolic function normal. EF 55 to 60%. Right ventricle is normal in size and function. Left atrial size is normal. Mild mitral regurgitation. Left ventricle diastolic function is normal. Atrial septum is aneurysmal. Interatrial septum is intact with no evidence of ASD. Aortic root is mildly dilated with diameter of 4.1 cm. The proximal ascending aorta diameter is normal. IV Cardizem and Heparin discontinued -started on metoprolol and Eliquis Appreciate Cardiology Input Needs follow up with Cardiology upon discharge Transient Hematuria Likely due to Traumatic Catheter Hb stable Resolved H/O prediabetes HbA1C:pending HTN Continue home meds ANA on CPAP: CPAP as per home settings BPH Continue Flomax Follows with DVT Px: Eliquis Code Status Full Code Disposition Home By [facility] guidelines, a determination that the admission or continued stay is not medically necessary has been made by a member of the UR committee and a physician for this hospital stay, therefore a Code 44 will be completed and the Inpatient admission will be changed to outpatient. Total Time Total Time Spent Total Time Spent (In Minutes): 39 minutes Discharge Plan Discharge Items Patient Disposition: Home - Self-Care Reason For Visit: AFIB RVR Discharge Diagnosis: Atrial flutter with rapid ventricular response Activity: Per Instructions section Exercise/Sports: Gradually increase as tolerated Non-emergency contact: Primary Care Provider, Beef Specialist and Urologist Call non-emergency contact if: you have any medication questions, your symptoms worsen, your pain is concerning for you and you have a fever Follow-up/Referrals: Venancio Peralta MD [Primary Care Provider] - Diet: Heart Healthy Addtl Attending Provider Instructions: Follow-up with your primary care physician Dr. Peralta in 1 week as advised Follow-up with your lining layer Dr. Gera Aviles as advised Consider following up with your urologist Dr. Castro if you have any recurrence of blood in urine. Seek immediate medical attention if your symptoms reoccur or worsen Please take all medications as instructed on discharge list below. Please call if you have any questions or problems. You can reach a [facility] hospitalist on duty at [facility] 24 hours a day by calling [phone] Pending Studies at Discharge: No Stand-Alone Forms: My [facility] [place] blueKiwi, Smoking Cessation Medications and DC Order Prescriptions: New metoprolol succinate 25 mg Tablet Extended Release 24 Hr 25 mg PO QAM Qty: 30 RF: 1 Eliquis 5 mg Tablet 5 mg PO BID Qty: 60 RF: 1 Continued indapamide 2.5 mg tablet 2.5 mg PO DAILY RF: 0 pravastatin 40 mg tablet 40 mg PO HS RF: 0 quinapril 40 mg tablet 60 mg PO DAILY RF: 0 tamsulosin 0.4 mg capsule 0.4 mg PO DAILY RF: 0 multivitamin Tablet 1 tab PO DAILY RF: 0 Discharge Orders: Discharge Order (Routine); Ordered 03/24/21 Ordered By: Jim Roldan Admission Data Admit Date/Time: 03/23/21 15:41 Attending Provider: Jim Roldan Admit Provider: Jim Roldan Primary Care Provider: Venancio Peralta Other Providers: Jim Roldan ; Gera Aviles
[2021-03-24] MEDS ORDERED: APIXABAN 5 MG TABLET PO ONE (13:00)
--- NOTE | 2021-03-24 13:57 | Communication Note ---
Date of Service: March 24, 2021 By CMS guidelines, a determination that the admission or continued stay is not medically necessary has been made by a member of the Utilization Review committee and a physician for this hospital stay. Therefore, a Code 44 will be completed and the inpatient admission will be changed to outpatient. Fifi Pisano DO
--- NOTE | 2021-03-25 05:41 | Electrocardiogram Report ---
Test Reason : Blood Pressure : / mmHG Vent. Rate : 122 BPM Atrial Rate : 267 BPM P-R Int : 000 ms QRS Dur : 096 ms QT Int : 374 ms P-R-T Axes : 000 039 -05 degrees QTc Int : 532 ms Atrial flutter with variable A-V block Nonspecific ST and T wave abnormality Abnormal ECG No previous ECGs available Confirmed by Jarocho Howard ([id number]) on 03/25/2021 5:40:53 AM Referred By: REFERRED SELF Confirmed By:Jarocho Howard
--- NOTE | 2021-03-25 06:06 | Electrocardiogram Report ---
Test Reason : Blood Pressure : / mmHG Vent. Rate : 056 BPM Atrial Rate : 056 BPM P-R Int : 184 ms QRS Dur : 114 ms QT Int : 446 ms P-R-T Axes : 062 008 043 degrees QTc Int : 430 ms Sinus bradycardia Otherwise normal ECG When compared with ECG of 23-MAR-2021 13:46, Sinus rhythm has replaced Atrial flutter Vent. rate has decreased BY 66 BPM Confirmed by Jarocho Howard ([id number]) on 03/25/2021 6:06:15 AM Referred By: REFERRED SELF Confirmed By:Jarocho Howard
[2021-03-25 08:00] LABS: Estimated Average Glucose 123 mg/dl; Hemoglobin A1C 5.9 % (4.5-5.6)
[2021-03-25] MEDS ORDERED: APIXABAN 5 MG TABLET PO SCH (09:00)
== END 2021-03-24 14:20 | disposition home or self-care (01) ==
LOC: ED 13:34 → INTOOBSV 15:41 → 1E 15:41
DX: Z20.822 Contact with and (suspected) exposure to COVID-19; I48.92 Unspecified atrial flutter; Z99.89 Dependence on other enabling machines and devices; Z86.16 Personal history of COVID-19; N40.1 Benign prostatic hyperplasia with lower urinary tract symptoms; G47.33 Obstructive sleep apnea (adult) (pediatric); E78.5 Hyperlipidemia, unspecified; Z82.49 Family history of ischemic heart disease and other diseases of the circulatory system; R39.15 Urgency of urination; R31.9 Hematuria, unspecified; I10 Essential (primary) hypertension; Z79.899 Other long term (current) drug therapy

== ENCOUNTER 2023-09-16 11:50 | Inpatient (IN) ==
--- NOTE | 2023-09-16 12:25 | Emergency Department Note ---
Impression & Plan Chest pain ADMIT ED Provider Note HPI: History obtained from patient. The patient is a 78-year-old gentleman with history of atrial fibrillation, currently on anticoagulation, who presents the emergency department with a chief complaint of failed stress test. Patient states that earlier today he was getting a stress test done through the offices of [facility] cardiology and he states he developed chest pain during his stress test. He was advised to come to the emergency room. Patient states he went by private vehicle to his house and had his and then drive him to the ER. Patient states he does get chest pain with exertion, states the stress test was done because over the past several months he has developed some chest discomfort when he walks or runs on the treadmill. On arrival here to the ED the patient is resting comfortably in bed on my initial assessment, he denies any active chest pain, he is otherwise hemodynamically stable on arrival. ROS: - Per HPI Differential Diagnosis: Acute coronary syndrome, esophagitis, pneumothorax, aortic dissection, pulmonary embolism, amongst other potential pathologies. *Outpatient medications and allergy history reviewed. PE: General: Alert HEENT: Normocephalic, trachea midline Eyes: Extraocular eye movement is intact, no scleral erythema Pulmonary: Clear to auscultation bilaterally, no wheezing Cardio: Regular rate and rhythm GI: Abdomen is soft to palpation : No suprapubic tenderness MSK: No evidence of trauma or malformation of the extremities, no edema Skin: No evidence of rash Neuro: Alert, no focal deficits Psychiatric: Cooperative INDEPENDENT INTERPRETATIONS: radiation monitor: (As interpreted by myself): - An order was placed for continuous cardiac monitoring - Patient was noted to be in sinus rhythm with a rate of 50 EKG: (As interpreted by myself): Rate: 58 Rhythm: Sinus bradycardia Intervals: Within normal limits ST changes: No ST elevation, T wave inversion in lead III appears to be new in comparison to previous EKG Time: 1202 Chest x-ray: (As interpreted by myself): No acute disease Interventions provided in ED: -Aspirin Medical Decision Making: IV was established and lab work obtained, patient was placed on cardiac care unit nurse. Lab work shows no leukocytosis, hemoglobin is normal, platelet count is normal, CMP does not show any critical findings, troponin is mildly elevated at 39.9, patient denies any active chest pain while he is at rest. Chest x-ray does not show any evidence of acute disease. EKG reviewed by myself shows evidence of T wave inversion in lead III without any evidence of ST elevation [place]. Patient was ordered aspirin in the ED. I discussed the patient's presentation with the on-call visitor services information assistant for [facility], Dr. Scherer, he states he was made aware of the patient's presentation. He recommends that given that the patient did take his morning dose of Eliquis he be admitted to the hospitalist service and will plan for likely diagnostic catheterization in the morning. Will hold on heparin given that the patient is on Eliquis and is not having any active chest pain. I discussed the patient's presentation with the on-call hospitalist, Dr. Almonte, and the patient was accepted for inpatient admission, cardiology consultation, and further care. Patient is in agreement to this plan and he was placed for admission in stable condition. Consultants/Discussions held with other healthcare providers: -Cardiology, Dr. Scherer -Hospitalist, Dr. Almonte Disposition discussion held by myself with: -Patient and patient's at the bedside Diagnosis: 1. Chest pain with exertion, acute 2. Failed stress test in the outpatient setting, acute 3. Elevated high-sensitivity troponin level, acute, mild 4. T wave inversion on EKG Disposition: Admission Rubio Nevarez DO Emergency Medicine Past Med/Surg History Medical History (Updated 09/16/23 @ 13:57 by Rubio Nevarez DO) Atrial flutter Follows with Dr. Giles- on Eliquis Enlarged prostate Aortic root enlargement Atrial septal aneurysm History of COVID-19 Dx 05/2021- sinus infection > resolved Prediabetes HLD (hyperlipidemia) ANA on CPAP HTN (hypertension) Benign prostatic hyperplasia (BPH) with urinary urgency Surgical History History of esophagogastroduodenoscopy (EGD) History of colonoscopy History of cardiac radiofrequency ablation 03/2021 [facility] H/O shoulder surgery R/L H/O arthroscopic knee surgery R/L Family History Father Heart disease Brother Family history of diabetes mellitus Social History Smoking Status: Never smoker Second Hand Exposure: Yes (FATHER SMOKED); Do You Dip or Chew Tobacco: No; Hx Alcohol Use: No Hx Substance Use: No Preferred Language: Cameroonian Communication Ability: Effective Hearing Ability: Use of Hearing Aid Windows Application Developer Required: No Beliefs That Will Affect Care: None Current Living Situation: Spouse current occupational status: other current occupation: [employer] Feels Safe at Home: Yes Assistive Devices: Glasses, Hearing Aid - Bilateral and Other Allergies Allergies Allergy/AdvReac Type Severity Reaction Status Date / Time No Known Allergies Allergy Verified 01/15/23 10:19 Home Meds Home Medications Medication Instructions Recorded Confirmed multivitamin 1 tab PO QAM 03/23/21 09/16/23 pravastatin 40 mg tablet 40 mg PO HS 03/23/21 09/16/23 metoprolol succinate 25 mg 25 mg PO QAM 04/08/22 09/16/23 tablet,extended release 24 hr lisinopril 40 mg tablet 40 mg PO DAILY 10/20/22 09/16/23 hydrochlorothiazide 25 mg tablet 25 mg PO DAILY 09/16/23 09/16/23 Previous Rx's Medication Instructions Recorded apixaban 5 mg tablet (Eliquis) 5 mg PO BID #60 tabs 03/24/21 Results & Data (ED) Vital Signs Vital Signs - 24 hr 09/16/23 11:55 09/16/23 12:34 Temperature 36.6 C Temperature Source Temporal Artery Scan Pulse Rate 61 52 L Respiratory Rate 20 Respiratory Effort / Characteristics Non-Labored Respiratory Depth Normal Blood Pressure 148/79 H Blood Pressure Mean 102 Pulse Oximetry 97 Oxygen Delivery Method Room Air Sepsis Recent Fever Within 48 Hours No Sepsis New/Unexplained Change in Mental Status No Sepsis Action Taken by Nursing No Action Required Laboratory Data 09/16/23 12:11 09/16/23 12:11 Lab Results 09/16/23 Range/Units 12:11 WBC 6.82 (4.8-10.8) K/ul RBC 4.73 (4.70-6.10) M/uL Hgb 14.7 (14.0-18.0) g/dl Hct 43.1 (42.0-52.0) % MCV 91.1 (80.0-100.0) fL MCH 31.1 (25.0-34.0) pg MCHC 34.1 (32.0-36.0) g/dL RDW Std Deviation 40.2 (36.4-46.3) fL RDW Coeff of [place] 12.1 (11.5-14.5) % Plt Count 183 (130-400) K/uL MPV 10.3 (9.4-12.4) fL Immature Gran % (Auto) 0.3 % Neut % (Auto) 73.9 % Lymph % (Auto) 19.2 % [place] % (Auto) 5.6 % Eos % (Auto) 0.4 % Baso % (Auto) 0.6 % Neut # (Auto) 5.04 (1.40-6.50) K/uL Lymph # (Auto) 1.31 (1.20-3.40) K/uL [place] # (Auto) 0.38 (0.11-0.59) K/uL Eos # (Auto) 0.03 (0.00-0.50) K/uL Baso # (Auto) 0.04 (0.00-0.20) K/uL Immature Gran # (Auto) 0.02 (0.01-0.20) K/uL PT 10.6 (9.0-12.0) Seconds INR 1.0 (0.9-1.1) APTT 31 (21-31) Seconds PTT Ratio 1.1 Sodium 140 (136-145) mmol/L Potassium 3.7 (3.5-5.1) mmol/L Chloride 103 (98-107) mmol/L Carbon Dioxide 33 H (21-32) mmol/L Anion Gap 4 (3-11) BUN 20 (6-23) mg/dl Creatinine 0.93 (0.6-1.4) mg/dl Est Cr Clr Drug Dosing 68.9 ml/min Est GFR ( Amer) 91.5 ml/min Est GFR (Non-Af Amer) 78.9 ml/min BUN/Creatinine Ratio 21.5 H (10-20) Glucose 111 H (70-99(Fasting)) mg/dl Calcium 9.9 (8.6-10.3) mg/dl Total Bilirubin 0.8 (0.2-1.0) mg/dl AST 22 (13-39) U/L ALT 19 (7-52) U/L Alkaline Phosphatase 75 (34-104) U/L Troponin I High Sens 39.9 H (0-20) pg/ml Total Protein 6.8 (6.0-8.3) gm/dl Albumin 4.5 (3.4-5.0) gm/dl Globulin 2.3 L (2.5-4.0) gm/dl Albumin/Globulin Ratio 2.0 (0.9-2) Administered Medications Discontinued Medications Aspirin (Aspirin Chew 324 Mg) 324 mg PO NOW STA Stop: 09/16/23 13:04 Last Admin: 09/16/23 13:06 Dose: 324 mg Documented By: SW Imaging Data Radiologist's Impression: Chest X-Ray 09/16/23 11:58 XR chest 1V portable CLINICAL HISTORY: Chest pain, nonspecific TECHNIQUE: Single frontal radiograph of the chest was obtained. Comparison: Comparison is made to chest radiograph 04/08/2022 FINDINGS: No lines and tubes are seen. The cardiomediastinal silhouette is normal. The lungs are clear. No evidence of pleural effusion or pneumothorax. IMPRESSION: No acute chest disease. ACT 112: Negative or not required by law. Electronically signed by: Cornelio Mauro M.D. 09/16/2023 12:29 PM Discharge Plan Visit Data Chief Complaint: Referred by Doctor Stated Complaint: ABNORMAL STRESS-TEST, LOW OXYGEN ED Provider: Rubio Nevarez Discharge Problem: Chest pain Forms Stand Alone Forms: My [facility] [employer] Prescriptions Prescriptions: No Action lisinopril 40 mg tablet 40 mg PO DAILY pravastatin 40 mg tablet 40 mg PO HS multivitamin Tablet 1 tab PO QAM Eliquis 5 mg Tablet 5 mg PO BID Qty: 60 1RF metoprolol succinate 25 mg tablet extended release 24 hr 25 mg PO QAM hydrochlorothiazide 25 mg tablet 25 mg PO DAILY Referrals Referrals: Venancio Peralta MD [Outside Practitioners] - Discharge Problem: Chest pain Qualifiers: Chest pain type: unspecified Qualified Code(s): R07.9 - Chest pain, unspecified
--- NOTE | 2023-09-16 12:30 | XRay Report ---
XR chest 1V portable CLINICAL HISTORY: Chest pain, nonspecific TECHNIQUE: Single frontal radiograph of the chest was obtained. Comparison: Comparison is made to chest radiograph 04/08/2022 FINDINGS: No lines and tubes are seen. The cardiomediastinal silhouette is normal. The lungs are clear. No evid ence of pleural effusion or pneumothorax. IMPRESSION: No acute chest disease. ACT 112: Negative or not required by law. Electronically signed by: Cornelio Mauro M.D. 09/16/2023 12:29 PM
[2023-09-16 12:32] LABS: Basophils # (auto) 0.04 K/uL (0.00-0.20); Basophils % (auto) 0.6 %; Eosinophils # (auto) 0.03 K/uL (0.00-0.50); Eosinophils % (auto) 0.4 %; Hematocrit (blood only) 43.1 % (42.0-52.0); Hemoglobin 14.7 g/dl (14.0-18.0); Immature Granulocytes # (auto) 0.02 K/uL (0.01-0.20); Immature Granulocytes % (auto) 0.3 %; Lymphocytes # (auto) 1.31 K/uL (1.20-3.40); Lymphocytes % (auto) 19.2 %; Mean Corpuscular Hemoglobin 31.1 pg (25.0-34.0); Mean Corpuscular Hgb Conc 34.1 g/dL (32.0-36.0); Mean Corpuscular Volume 91.1 fL (80.0-100.0); Mean Platelet Volume 10.3 fL (9.4-12.4); Monocytes # (auto) 0.38 K/uL (0.11-0.59); Monocytes % (auto) 5.6 %; Neutrophils # (auto) 5.04 K/uL (1.40-6.50); Neutrophils % (auto) 73.9 %; Platelet Count 183 K/uL (130-400); RDW Coefficient of Variation 12.1 % (11.5-14.5); RDW Standard Deviation 40.2 fL (36.4-46.3); Red Blood Count 4.73 M/uL (4.70-6.10); White Blood Count 6.82 K/ul (4.8-10.8)
[2023-09-16 12:52] LABS: Albumin Level 4.5 gm/dl (3.4-5.0); BUN Creatinine Ratio 21.5 (10-20); Bilirubin,Total 0.8 mg/dl (0.2-1.0); Calcium 9.9 mg/dl (8.6-10.3); Creatinine Clr Calc Pharmacy 68.9 ml/min; Est GFR (African American) 91.5 ml/min; Est GFR (Non-African American) 78.9 ml/min; Globulin 2.3 gm/dl (2.5-4.0); Potassium 3.7 mmol/L (3.5-5.1); Total Protein 6.8 gm/dl (6.0-8.3)
[2023-09-16 12:58] LABS: Troponin I High Sensitivity 39.9 pg/ml (0-20)
[2023-09-16 13:01] LABS: Partial Thromboplastin Ratio 1.1; Partial Thromboplastin Time 31 Seconds (21-31); Prothrombin Time 10.6 Seconds (9.0-12.0)
[2023-09-16] MEDS: ASPIRIN CHEW 324 MG PO STA (13:06)
--- NOTE | 2023-09-16 13:41 | History & Physical Report ---
Date of Service September 16, 2023 Assessment & Plan (1) Abnormal stress echocardiogram: (2) NSTEMI (non-ST elevated myocardial infarction): (3) PAF (paroxysmal atrial fibrillation): (4) Family history of premature CAD: (5) ANA on CPAP: (6) HTN (hypertension): Plan This is a 78 year old Male hx of PAF anticoagulated on eliquis and hx of ablation for previous atrial flutter, aortic root dilatation, HTN, HLD, atrial septal aneurysm, tachybradycardia syndrome, ANA, prediabetes and BPH who presents to ED at the referral of cardiology. Abnormal stress echocardiogram NSTEMI Admit to PCU Cardiology consult He took Eliquis this morning, will continue to hold this Plan for cardiac catheterization at timing of cardiology's discretion Continue to hold Eliquis Continue metoprolol, HCTZ and statin; will hold morning dose of lisinopril in anticipation of contrast administration Continue to cycle troponins fasting lipid panel in a.m., last a1c 6.1 in July PAF, hx of atrial flutter s/p ablation TBS follows Dr. Giles, planning for OP PPM in future continue metoprolol, eliquis on hold for cardiac cath Pre DM last a1c 6.1 encourage diet/lifestyle modifications ANA CPAP at HS BPH s/p TURP DVT ppx: Eliquis on hold FULL CODE PCP: Dr. Stevens Dispo: admit to PCU, NPO after midnight for cardiac cath Pt was see and examined in collaboration with Dr. Almonte, please see addendum A total of 62 minutes was spent coordinating, documenting, and providing care for this patient excluding time spent in the performance of separately billed services. This included personally viewing all current laboratories and imaging studies, medication reconciliation, outpatient chart review, and discussion with specialists. History of Present Illness Chief Complaint: Referred by cardiology clinic Primary Care Provider: Venancio Peralta MD This is a 78 year old Male hx of PAF anticoagulated on eliquis and hx of ablation for previous atrial flutter, aortic root dilatation, HTN, HLD, atrial septal aneurysm, tachybradycardia syndrome, ANA, prediabetes and BPH who presents to ED at the referral of cardiology. He has been experiencing chest pain for the past 3 months off and on. Chest pain typically develops when he is exerting himself. His sx resolve with rest. He describes it like he is having acid reflux when he is exercising. Currently sitting in the bed he is chest pain free. He was seen in the cardiology clinic today and underwent a stress test. His stress test was positive for inducible ischemia and therefore he was referred here for cardiac catheterization. He has a strong family history of CAD with his father and brother. Outpatient cardiology note was reviewed. During exercise stress test he developed typical throat discomfort with diffuse ST segment depressions and stress echocardiogram indicated dilatation of the left ventricle post exercise and diffuse hypokinesis. He was noted to have prolonged recovery of his ST segments and his chest pain continued requiring sublingual nitro which resolved his discomfort completely. He denies any recent illness, fever, chills, sweats, lightheadedness, dizziness, chest pain, shortness breath, nausea, vomiting, abdominal pain, changes bowel or urinary habits. He did take morning medications including his Eliquis. Allergies Allergy/AdvReac Type Severity Reaction Status Date / Time No Known Allergies Allergy Verified 01/15/23 10:19 Home Medications Medication Instructions Recorded Confirmed Type multivitamin 1 tab PO QAM 03/23/21 09/16/23 History pravastatin 40 mg tablet 40 mg PO HS 03/23/21 09/16/23 History apixaban 5 mg tablet (Eliquis) 5 mg PO BID #60 tabs 03/24/21 09/16/23 Rx metoprolol succinate 25 mg 25 mg PO QAM 04/08/22 09/16/23 History tablet,extended release 24 hr lisinopril 40 mg tablet 40 mg PO DAILY 10/20/22 09/16/23 History hydrochlorothiazide 25 mg tablet 25 mg PO DAILY 09/16/23 09/16/23 History Past Med/Surg History Medical History Atrial flutter Follows with Dr. Giles- on Eliquis Enlarged prostate Aortic root enlargement Atrial septal aneurysm History of COVID-19 Dx 05/2021- sinus infection > resolved Prediabetes HLD (hyperlipidemia) ANA on CPAP HTN (hypertension) Benign prostatic hyperplasia (BPH) with urinary urgency Surgical History History of esophagogastroduodenoscopy (EGD) History of colonoscopy History of cardiac radiofrequency ablation 03/2021 [facility] H/O shoulder surgery R/L H/O arthroscopic knee surgery R/L Family History Father Heart disease Brother Family history of diabetes mellitus Social History Smoking Status: Never smoker Second Hand Exposure: Yes (FATHER SMOKED); Do You Dip or Chew Tobacco: No; Hx Alcohol Use: No Hx Substance Use: No Preferred Language: Chadian Communication Ability: Effective Hearing Ability: Use of Hearing Aid Deputy Sheriff Lieutenant Required: No Beliefs That Will Affect Care: None Current Living Situation: Spouse current occupational status: other current occupation: [email or web address] Other Information That Helps Us Care for You: No Feels Safe at Home: Yes Safety Concerns: Feels Safe At This Time Assistive Devices: Glasses, Hearing Aid - Left and Hearing Aid - Right Review of Systems Review of Systems: All systems reviewed & are unremarkable except as noted in HPI & below Physical Exam Physical Exam: please refer to Dr. Almonte addendum for physical exam findings. Results & Data Results & Data Vital Signs (Past 12 Hours) Vital Signs Temp Pulse Resp BP Pulse Ox O2 Del Method 09/16/23 12:34 52 L 09/16/23 11:55 36.6 C 61 20 148/79 H 97 Room Air Diagnostic Findings Chest X-Ray 09/16/23 11:58 XR chest 1V portable CLINICAL HISTORY: Chest pain, nonspecific TECHNIQUE: Single frontal radiograph of the chest was obtained. Comparison: Comparison is made to chest radiograph 04/08/2022 FINDINGS: No lines and tubes are seen. The cardiomediastinal silhouette is normal. The lungs are clear. No evidence of pleural effusion or pneumothorax. IMPRESSION: No acute chest disease. ACT 112: Negative or not required by law. Electronically signed by: Cornelio Mauro M.D. 09/16/2023 12:29 PM Medications Administered Medication List Discontinued Medications Aspirin (Aspirin Chew 324 Mg) 324 mg PO NOW STA Stop: 09/16/23 13:04 Last Admin: 09/16/23 13:06 Dose: 324 mg Documented By: MANGO ECG Additional Comments: I have independently reviewed and interpreted patient's admitting EKG which revealed: Sinus bradycardia, 58 bpm, incomplete right bundle branch block, T wave inversions in leads III and aVF which is new in comparison to EKG from April 08, 2022 COVID- Results Results COVID- Adm Lab Results: RBC 4.73 M/uL (4.70-6.10) 09/16/23 WBC 6.82 K/ul (4.8-10.8) 09/16/23 Hgb 14.7 g/dl (14.0-18.0) 09/16/23 Hct 43.1 % (42.0-52.0) 09/16/23 Plt Count 183 K/uL (130-400) 09/16/23 Neutrophils (%) (Auto) 73.9 % 09/16/23 Lymphocytes (%) (Auto) 19.2 % 09/16/23 Monocytes # (Auto) 0.38 K/uL (0.11-0.59) 09/16/23 Eosinophils # (Auto) 0.03 K/uL (0.00-0.50) 09/16/23 Immature Granulocyte % (Auto) 0.3 % 09/16/23 Neutrophils # (Auto) 5.04 K/uL (1.40-6.50) 09/16/23 Lymphocytes # (Auto) 1.31 K/uL (1.20-3.40) 09/16/23 Monocytes # (Auto) 0.38 K/uL (0.11-0.59) 09/16/23 Eosinophils # (Auto) 0.03 K/uL (0.00-0.50) 09/16/23 Basophils # (Auto) 0.04 K/uL (0.00-0.20) 09/16/23 Immature Granulocyte # (Auto) 0.02 K/uL (0.01-0.20) 4 Na 140 mmol/L (136-145) 09/16/23 K 3.7 mmol/L (3.5-5.1) 09/16/23 Cl 103 mmol/L (98-107) 09/16/23 CO2 33 mmol/L (21-32) H 09/16/23 Anion Gap 4 (3-11) 09/16/23 BUN 20 mg/dl (6-23) 09/16/23 Creatinine 0.93 mg/dl (0.6-1.4) 09/16/23 BUN/Creatinine Ratio 21.5 (10-20) H 09/16/23 Glucose Level 111 mg/dl (70-99(Fasting)) H 09/16/23 Ca 9.9 mg/dl (8.6-10.3) 09/16/23 Total Bilirubin 0.8 mg/dl (0.2-1.0) 09/16/23 AST/SGOT 22 U/L (13-39) 09/16/23 ALT/SGPT 19 U/L (7-52) 09/16/23 Alkaline Phosphatase 75 U/L (34-104) 09/16/23 Total Protein 6.8 gm/dl (6.0-8.3) 09/16/23 Albumin 4.5 gm/dl (3.4-5.0) 09/16/23 Globulin 2.3 gm/dl (2.5-4.0) L 09/16/23 Albumin/Globulin Ratio 2.0 (0.9-2) 09/16/23 PTT 31 Seconds (21-31) 09/16/23 INR 1.0 (0.9-1.1) 09/16/23 Chest X-Ray 09/16/23 Code Status & VTE Plan Code Status Full code Supervising Physician Co-Signing Physician Notes I have seen and discussed the case with the collaborating advanced practitioner. I agree with the above H&P. I have reviewed and confirmed the patients medical history, the findings on physical examination, and the patients diagnosis and treatment plan with Noreen COOK and agree with the information documented. In short, Mr. Mercedes is a 78 year old gentleman with history of PAF, HTN HLD who is admitted for evaluation of typical chest pain and positive stress test as OP today. Patient reports 3 months history of substernal burning notable on exertion. No chest pain on exam Labs with +trop 128.7 EKG with TWI notable in V1, avR, III GENERAL APPEARANCE: AxOx4, generally well-appearing M, no acute distress. HEENT: NC, AT. MMM. EOMI, clear conjunctiva, oropharynx clear. NECK: Supple without lymphadenopathy. No stiffness or restricted ROM. HEART: Normal rate and regular rhythm, normal S1/S1, no m/r/g LUNGS: CTAB, moving air well. No crackles or wheezes are heard. ABDOMEN: Soft, nontender, nondistended with good bowel sounds heard. BACK: No CVAT, no obvious deformity. EXTREMITIES: Without cyanosis, clubbing or edema. NEUROLOGICAL: Grossly nonfocal. Alert and oriented, moving all 4 extremities. CN not formally tested but appear grossly intact. Skin: Warm and dry without any rash. #Typical chest pain, c/f CAD #Abnormal stress test #abnormal EKG, TWI #Elevated Trop, likely demand 2/2 stress testing, -months of chest pain on exertion, alleviated with rest Elevated trop, hold heparin for now per cards given apixaban taken this am 09/15 -Hold eliquis -NPO midnight Resume home meds, hold lisinopril in am prior to cath -continue BB, HCTZ statin -Trend Trop -Cardiology consulted Rest of plan as above I spent a total of 35 minutes coordinating, documenting, and providing care for this patient excluding time spent in the performance of separately billed services. All of the aforementioned completed outside of collaborating with the assigned advanced practitioner for a full treatment plan. I have reviewed the advanced practitioner's documentation, and I agree with, and take responsibility for the plan of care
--- NOTE | 2023-09-16 13:54 | Cardiology Consultation ---
Date of Consultation September 16, 2023 Assessment & Plan (1) Abnormal stress test: (2) ANA on CPAP: (3) HTN (hypertension): (4) Family history of premature CAD: (5) PAF (paroxysmal atrial fibrillation): (6) Atrial flutter: Plan Impression Abnormal Excercise Stress Test TBS/SSS Famiy Hx CAD Chest Pain Typical paroxysmal atrial flutter and pAF on eliquis and metoprolol [id number] 2 (age, HTN) s/p empiric CTI 04/10/2021; having recurrent brief episodes of at ypical flutter/Fib HTN HLD ANA on CPAP Mild MR Prediabetes H/o gastric ulcer Aortic root dilation very mild 4.2cm BPH s/p TURP 03/2022; started on dutasteride in Jun and then started having elevated BP Plan -Given the abnormal stress test would warrant additional workup with cardiac cath -He did take his anticoagulation this morning so would stop apixaban at this point in light of upcoming procedure -sinus bradycardia on telemetry -He is due for updating fasting lipid panel which we will add to his routine a.m. lab work for tomorrow -Continue lisinopril, metoprolol, pravastatin -NPO after midnight Case discussed with Dr. Scherer. Please see attestation for additional recommendations. I spent a total of 40 minutes on the date of service in preparation, delivery, and documentation of the care provided to the patient excluding any time spent in the performance of separately billed services. LEIA Lam Department of Cardiology, [facility] This chart was completed in part utilizing Speech Voice Recognition Software. Grammatical errors, random word insertions, pronoun errors, and incomplete sentences are an occasional consequence of this system due to software limitations, ambient noise, and hardware issues. Any formal questions or concerns about the content, text, or information contained within the body of this dictation should be directly addressed to the provider for clarification. Supervising Physician Co-Signing Physician Notes I have reviewed the advance practitioner's documentation, and I agree with, and take responsibility for the plan of care. 78-year male referred from cardiology clinic due to abnormal exercise stress echo. Patient reports consistently reproducible exertional anginal symptoms over the past few months. Discomfort described as "heartburn" and consistently relieved with rest. Denies any resting discomfort. Currently pain-free. present at bedside. Telemetry reveals sinus bradycardia. PE: VSS. Bradycardia. General: NAD, awake alert orient x 3. Heart: Regular rhythm, normal S1-S2. No murmur. Pulmonary: Clear bilateral, no rales, rhonchi, wheeze. Extremities: No edema. + Radial and femoral pulses. A/P: 78-year-old patient with exertional angina and abnormal exercise stress echo demonstrating evidence of mid and apical lateral, and apical anterolateral hypokinesis. Hold eliquis. N.p.o. except medications after midnight. Risk versus benefit of cardiac catheterization discussed. Patient agreeable to proceed. All questions answered to the satisfaction of both the patient and his . They are agreeable to the current plan. Further recommendations pending cardiac catheterization results. I spent a total of 25 minutes on the date of service in preparation, delivery, and documentation of the care provided to this patient, excluding any time spent in the performance of separately billed services. History of Present Illness Reason for Consultation: Abnormal Stress Test Requesting Physician: [facility] Hospitalist Attending Physician: Dr. Kya Almonte History of Present Illness 77-year-old male sent for admission due to abnormal exercise stress test that was completed earlier today at [facility]. He has been experiencing some exertional chest discomfort that quickly resolves with rest over the past few months during his exercise stress test today he did have angina during the test that worsened as the level of activity increased. Once the test was resolved and he rest the discomfort has quickly resolved. He has a known past medical history of tachybrady syndrome, paroxysmal a flutter status post CTI 04/10/2021, PAF, hypertension, hyperlipidemia, ANA on CPAP, mild MR, and a family history of premature CAD. Denies SOB, palpitations, dizziness, syncope, edema, orthopnea and PND. No change in activity tolerance. Allergies Allergy/AdvReac Type Severity Reaction Status Date / Time No Known Allergies Allergy Verified 01/15/23 10:19 Home Medications Medication Instructions Recorded Confirmed Type multivitamin 1 tab PO QAM 03/23/21 09/16/23 History pravastatin 40 mg tablet 40 mg PO HS 03/23/21 09/16/23 History apixaban 5 mg tablet (Eliquis) 5 mg PO BID #60 tabs 03/24/21 09/16/23 Rx metoprolol succinate 25 mg 25 mg PO QAM 04/08/22 09/16/23 History tablet,extended release 24 hr lisinopril 40 mg tablet 40 mg PO DAILY 10/20/22 09/16/23 History hydrochlorothiazide 25 mg tablet 25 mg PO DAILY 09/16/23 09/16/23 History Patient History Medical History Atrial flutter Follows with Dr. Giles- on Eliquis Enlarged prostate Aortic root enlargement Atrial septal aneurysm History of COVID-19 Dx 05/2021- sinus infection > resolved Prediabetes HLD (hyperlipidemia) ANA on CPAP HTN (hypertension) Benign prostatic hyperplasia (BPH) with urinary urgency Surgical History History of esophagogastroduodenoscopy (EGD) History of colonoscopy History of cardiac radiofrequency ablation 03/2021 [facility] H/O shoulder surgery R/L H/O arthroscopic knee surgery R/L Family History Father Heart disease Brother Family history of diabetes mellitus Social History Smoking Status: Never smoker Second Hand Exposure: Yes (FATHER SMOKED); Do You Dip or Chew Tobacco: No; Hx Alcohol Use: No Hx Substance Use: No Preferred Language: Gibraltarian Communication Ability: Effective Hearing Ability: Use of Hearing Aid Cart Pusher Required: No Beliefs That Will Affect Care: None Current Living Situation: Spouse current occupational status: other current occupation: [employer] Other Information That Helps Us Care for You: No Feels Safe at Home: Yes Safety Concerns: Feels Safe At This Time Assistive Devices: Glasses, Hearing Aid - Left and Hearing Aid - Right Review of Systems Review of Systems: All systems reviewed & are unremarkable except as noted in HPI & below Constitutional: no fever, no chills, no fatigue, no weakness and no daytime sleepiness Cardiovascular: + chest pain (with exertion only ) Physical Exam Constitutional: WD/WN, vitals as above well developed, average body habitus and healthy appearing Respiratory: normal respiratory effort, lungs clear to auscultation Cardiovascular: Rate/Rhythm: regular rhythm and + bradycardic Heart Sounds: normal S1 and normal S2 Vessels: normal peripheral pulses; no JVD and no carotid bruit Gastrointestinal (Abdomen): normal bowel sounds, soft, nontender, no hepatosplenomegaly Musculoskeletal: no cyanosis or clubbing, extremities motor strength 5/5 Skin: no rashes, warm and dry Psychiatric: A+Ox3, euthymic affect Results & Data Vital Signs (Past 12 Hours) Vital Signs Temp Pulse Resp BP Pulse Ox O2 Del Method 09/16/23 12:34 52 L 09/16/23 11:55 36.6 C 61 20 148/79 H 97 Room Air Laboratory Results Cardiac Enzymes 09/16/23 Range/Units 12:11 AST 22 (13-39) U/L Troponin I High Sens 39.9 H (0-20) pg/ml Coagulation 09/16/23 Range/Units 12:11 PT 10.6 (9.0-12.0) Seconds APTT 31 (21-31) Seconds CBC 09/16/23 Range/Units 12:11 WBC 6.82 (4.8-10.8) K/ul RBC 4.73 (4.70-6.10) M/uL Hgb 14.7 (14.0-18.0) g/dl Hct 43.1 (42.0-52.0) % Plt Count 183 (130-400) K/uL Neut # (Auto) 5.04 (1.40-6.50) K/uL Lymph # (Auto) 1.31 (1.20-3.40) K/uL Iron # (Auto) 0.38 (0.11-0.59) K/uL Eos # (Auto) 0.03 (0.00-0.50) K/uL Baso # (Auto) 0.04 (0.00-0.20) K/uL Comprehensive Metabolic Panel 09/16/23 Range/Units 12:11 Sodium 140 (136-145) mmol/L Potassium 3.7 (3.5-5.1) mmol/L Chloride 103 (98-107) mmol/L Carbon Dioxide 33 H (21-32) mmol/L BUN 20 (6-23) mg/dl Creatinine 0.93 (0.6-1.4) mg/dl Glucose 111 H (70-99(Fasting)) mg/dl Calcium 9.9 (8.6-10.3) mg/dl AST 22 (13-39) U/L ALT 19 (7-52) U/L Alkaline Phosphatase 75 (34-104) U/L Total Protein 6.8 (6.0-8.3) gm/dl Albumin 4.5 (3.4-5.0) gm/dl Intake and Output 09/15/23 09/16/23 09/16/23 22:59 06:59 14:59 Other: Weight 90.7 kg Weight Measurement Method Chair Scale Patient Weight 09/17/23 06:59 Weight 90.7 kg Diagnostic Findings Exercise stress echo today at [facility] Positive Inducible ischemia EF 55-59% Diffuse LV hypokinesis with stress Stress induced mild LV dilation mild mr abn horizontal downsloping ST depression in inferior and lateral leads angina with stress Echocardiogram 07/01/2022: The LV wall thickness is mildly increased (concentric). The qualitative LV ejection fraction is 60-64% (normal). The right ventricular systolic function is normal as assessed by tricuspid annular plane systolic excursion (TAPSE) (normal >1.7cm). The left atrium is normal sized. The right atrial size is normal. There is an atrial septal aneruysm. Mild mitral regurgitation is present. The aortic root and proximal ascending aorta are normal size
[2023-09-16] MEDS ORDERED: ACETAMINOPHEN 325 MG TAB PO PRN (14:55)
[2023-09-16] MEDS ORDERED: ALUMINUM/MAGNESIUM SUSP 30 ML UDC PO PRN (14:55)
[2023-09-16] MEDS ORDERED: ONDANSETRON INJ 2 MG/ML 2 ML VIAL IV PRN (14:55)
--- NOTE | 2023-09-16 16:00 | Electrocardiogram Report ---
Test Reason : Blood Pressure : / mmHG Vent. Rate : 058 BPM Atrial Rate : 058 BPM P-R Int : 158 ms QRS Dur : 108 ms QT Int : 428 ms P-R-T Axes : 045 078 -10 degrees QTc Int : 420 ms Sinus bradycardia Incomplete right bundle branch block Abnormal ECG When compared with ECG of 08-APR-2022 07:16, Incomplete right bundle branch block is now Present T wave inversion now evident in Inferior leads Nonspecific T wave abnormality now evident in Lateral leads Confirmed by Kiran Phan ([id number]) on 09/16/2023 3:59:46 PM Referred By: Confirmed By:Brandt Phan
[2023-09-16] MEDS: PRAVASTATIN SOD 40 MG TAB PO SCH (20:23)
--- OUTSIDE RECORDS SUMMARY | 2023-09-17 00:49 | External Medical Summary | Summary of Care ---
Author Name Unknown Organization [facility] Address [address] [place] [address] [place] [address] Phone [phone] Care Team Providers Care Senior Quality Analyst Name Role Phone Aaron Stevens MD Primary Care Provider [phone]- [phone] Reason for Visit * Reason Comments Outpatient Testing Encounter Details Date Type Department Care Team (Late st Contact Info) Description 08/27/2023 7:40 AM EST Laboratory Laboratory, [facility] [address] [place] [phone] [facility] [address] [place] [address] Prediabetes Allergies No known active allergiesdocumented as of this encounter (statuses as of 08/27/2023) Medications Medication Sig Dispensed Refills Start Date End Date Status Metamucil Smooth Texture 58.6 % Oral Powder (Psyllium) Take by mouth 3 times a day. One scoop in 8 ounces of water, up to three times a day. 0 05/11/2020 Active One-A-Day Adult VitaCraves+DHA Oral Tablet Chewable Take by mouth. 0 Activ e Eliquis 5 MG Oral Tablet (Apixaban)Indication s:Typical atrial flutter (HCC) TAKE 1 TABLET BY MOUTH TWICE DAILY every morning and before bedtime 180 Tablet 3 12/23/2022 Active hydroCHLOROthiazide 25 MG Oral Tablet (Hydrodiuril)Indicat ions:PAF (paroxysmal atrial fibrillation) (HCC),HTN, goal below 140/90 TAKE 1 TABLET BY MOUTH EVERY MORNING 90 Tablet 3 03/20/2023 Active Pravastatin Sodium 40 MG Oral Tablet (Pravachol)Indicatio ns:Dyslipidemia TAKE 1 TABLET BY MOUTH ONCE DAILY 90 Tablet 3 03/19/2023 Active Metoprolol Succinate ER 25 MG Oral Tablet Extended Release 24 Hour (toPROL XL)Indications:HTN, goal below 140/90 Take 1 tablet by mouth once daily as needed for hypertension. 90 Tablet 3 05/03/2023 Active Lisinopril 40 MG Oral TabletIndications:HT N, goal below 140/90 TAKE 1 TABLET BY MOUTH EVERY MORNING 90 Tablet 1 08/10/2023 Active documented as of this encounter (statuses as of 08/27/2023) Active Problems Problem Noted Date Diagnosed Date Tachy-romario syndrome 01/21/2023 PAF (paroxysmal atrial fibrillation) 07/01/2022 S/P ablation of atrial flutter 12/03/2021 Typical atrial flutter 04/01/2021 Aortic root dilatation 04/01/2021 Atrial septal aneurysm 04/01/2021 Mild mitral regurgitation 04/01/2021 History of 2019 novel coronavirus disease (COVID -19) 11/08/2020 Prediabetes 05/18/2020 Elevated prostate specific antigen (PSA) 020 History of anal fissures 05/11/2020 History of gastric ulcer 05/11/2020 Hx of actinic keratosis 08/25/2019 ANA (obstructive sleep apnea) 05/19/2019 HTN, goal below 140/90 04/04/2018 Dyslipidemia 04/04/2018 BPH with obstruction/lower urinary tract symptom s 04/04/2018 documented as of this encounter (statuses as of 08/27/2023) Resolved Problems Problem Noted Date Diagnosed Date Resolved Date 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 05/11/2020 documented as of this encounter (statuses as of 08/27/2023) Immunizations Name Administration Dates Next Due COVID-19 mRNA, LNP-s, No Pre serve, 2-Dose Series (Hailo) 05/29/2021,09/24/2020,08/28/2020 Pneumococcal Polysaccharide PPV23 (Pneumovax) 04/30/2012 Season Influenza, Quad, PF, Adjuvanted, 65+ Yrs, IM (FLUAD) 03/12/2020 Seasonal Influenza, PF, 6 M & above, IM , (FluLaval or Fluzone) 05/09/2019,04/22/2018 05/09/2020 Seasonal Influenza, Quadriva lent Hd (Fluzone Hd) 05/14/2021 Seasonal Influenza, Quadriva lent Hd, 65+ Yrs 05/14/2021 TDAP (age 10 and older)(Boostrix) 04/23/2018 Zoster Vaccine Recombinant (Shingrix) 08/13/2021 ,01/29/2021 documented as of this encounter Social History Tobacco Use Types Packs/Day Years Used Date Smoking Tobacco: Never Smokeless Tobacco: Never Alcohol Use Standard Drinks/Week Comments Yes 0 (1 standard drink = 0.6 oz pur e alcohol) less than 1 beer per month AUDIT-C Answer Date Recorded Q1: How often do you have a drink containing alc ohol? Monthly or less 05/11/2020 Q2: How many drinks containi ng alcohol do you have on a typical day when you are drinking? 1 or 2 05/11/2020 Q3: How often do you have si x or more drinks on one occasion? Never 05/11/2020 PHQ-2 Answer Date Recorded PHQ Adult Total Score 0 05/19/2022 Hunger Vital Sign Answer Date Recorded Worried About Running Out of Food in the Last Ye ar Never true 03/12/2020 Ran Out of Food in the Last Year Never true 03/12/2020 Sex and Gender Information Value Date Recorded Sex Assigned at Male 03/12/2020 10:13 AM EDT Gender Identity Male 03/12/2020 10:13 AM EDT Sexual Orientation Straight 03/12/2020 10 :13 AM EDT Job Start Date Occupation Industry Not on file Not on file Not on file documented as of this encounter Plan of Treatment Upcoming Encounters Date Type Department Care Team (Late st Contact Info) Description 09/21/2023 11:30 AM EDT Office Visit Otolaryngology, [facility] [address] [address] Nadine Sepulveda MD [address] [address] 10/16/2023 1:00 PM EDT Imaging Cardiac Studies, [facility] [address] [facility] [place] [address] 10/30/2023 2:30 PM EDT Office Visit Cardiology, [facility] [address] [facility] [place] [address] Macie Emery CRNP [address] [place] [phone] 06/07/2024 10:30 AM EST Office Visit [facility] [address] [facility] [place] [phone] Gill Lopez CRNP [address] [facility] [place] [address] 08/03/2024 9:20 AM EST Office Visit [facility] [address] [place] [phone] Aaron Stevens MD [address] [place] [address] Pending Results Name Type Priority Associated Diagnoses Date /Time HEMOGLOBIN A1C Lab Routine Prediabetes 08/27/2023 7:40 AM EST Scheduled Procedures Name Priority Associated Diagnoses Date/Ti me COLONOSCOPY FLEXIBLE PROXIMA L DIAGNOSTIC Recall History of colonic polyps Health Maintenance Due Date Last Done Comments Pneumococcal Vaccine: 65+ Years (2 of 2 - PCV) 04/30/2013 04/30/2012 COVID-19 Vaccine ( season) 2023 05/29/2021, 09/24/2020, 08/28/2020 Influenza Vaccine (FLU shot) (#1) 2023 05/14/2021, 05/14/2021, 03/12/2020, Additional history exists Depression Screening 05/19/2023 05/19/2022 GFR 12/09/2023 12/08/2022, 03/2 , 01/16/2022, Additional history exists HbA1c 12/09/2023 12/08/2022, 05/2 11/2021, 12/05/2020, Additional history exists Albumin/Creatinine Ratio 12/08/2025 12/08/2022 COLONOSCOPY-EVERY 5 YRS AGES 18-100 10/18/2027 10/17/2022, 10/17/2022, 06/03/2019, Additional history exists DTaP,Tdap,and Td Vaccines (2 - Td or Tdap) 04/23/2028 04/23/2018 Zoster Vaccines Completed 08/13/2021, 01/29/2021 COLONOSCOPY-EVERY 3 YRS AGES 18-100 Discontinued 10/17/2022, 10/17/2022, 06/03/2019, Additional history exists GARDASIL-HPV IMMUNIZATION SERIES Aged Out No longer eligible based on patient's age to complete this topic Hepatitis B Aged Out No longer eligi ble based on patient's age to complete this topic MENINGOCOCCAL (MENACTRA/MENVEO) Aged Out No longer eligible based on patient's age to complete this topic documented as of this encounter Medical Devices Not on filedocumented as of this encounter Visit Diagnoses Diagnosis Prediabetes Other abnormal glucose documented in this encounter Care Teams Senior Quality Analyst Relationship Specialty Start Date End Date Aaron Stevens MD [address] [place] [address] PCP - General Family Medicine 07/29/23 documented as of this encounter
--- OUTSIDE RECORDS SUMMARY | 2023-09-17 00:49 | External Medical Summary ---
Author Name Unknown Address Unknown Organization [id number][place] [place] [address] [facility] [address] Laboratory Report Ordering Provider Test Date Status KEVIN GOMES 08/27/2023 07:40:32 Final Observation Date Value Abnormality Reference (Units ) Status HbA1C 08/27/2023 07:40:32 6.1 Above high normal 4. 0-5.6 (%) Final The use of HbA1c to monitor glycemic status is based on normal hemoglobin and HbA composition. This test should not be used in patients with abnormal hemoglobin that affects the half life of the red blood cell or the in vivo glycation rates. Glucose, estimated average 08/27/2023 07:40:32 128 Above high normal <126 (mg/dL) Brooks lemus Performing Location [facility] [place] [address] [facility] [address]
--- OUTSIDE RECORDS SUMMARY | 2023-09-17 00:49 | External Medical Summary | Summary of Care ---
Author Name Unknown Organization [facility] Address [address] [facility] [place] [address] Phone [phone] Care Team Providers Care Family Service Aide Name Role Phone Aaron Stevens MD Primary Care Provider [phone]- [phone] Encounter Details Date Type Department Care Team (Late st Contact Info) Description 08/05/2023 Orders Only PATIENT PORTAL DO NOT DELETE THIS DEPT USED BY [place] [id number] Allergies No known active allergiesdocumented as of this encounter (statuses as of 08/05/2023) Medications Medication Sig Dispensed Refills Start Date End Date Status Metamucil Smooth Texture 58.6 % Oral Powder (Psyllium) Take by mouth 3 times a day. One scoop in 8 ounces of water, up to three times a day. 0 05/11/2020 Active Lisinopril 40 MG Oral TabletIndications:HT N, goal below 140/90 Take 1 Tablet by mouth in the morning. 90 Tablet 3 09/01/2022 Active One-A-Day Adult VitaCraves+DHA Oral Tablet Chewable [...] for hypertension. 90 Tablet 3 05/03/2023 Active documented as of this encounter (statuses as of 08/05/2023) Active Problems Problem Noted Date Diagnosed Date [...] as of this encounter (statuses as of 08/05/2023) Resolved Problems Problem Noted Date Diagnosed Date Resolved Date 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 05/11/2020 documented as of this encounter (statuses as of 08/05/2023) Immunizations Name Administration Dates Next Due COVID-19 mRNA, LNP-s, No Pre serve, 2-Dose Series ([place]uevora) 05/29/2021,09/24/2020,08/28/2020 Pneumococcal Polysaccharide PPV23 (Pneumovax) 04/30/2012 Season [...] Visit Otolaryngology, [facility] [address] [address] Nadine Sepulveda MD [address] [address] 10/16/2023 1:00 PM EDT Imaging Cardiac Studies, [facility] [address] [address] 10/30/2023 2:30 PM EDT [facility] [address] Macie Emery CRNP [address] [place] [phone] 06/07/2024 10:30 AM EST [facility] [phone] Gill Lopez CRNP [address] [facility] [place] [address] 08/03/2024 9:20 AM EST Office Visit [facility] [address] [place] [phone] Aaron Stevens MD [address] [place] [address] Scheduled Procedures Name Priority Associated Diagnoses Date/Ti me COLONOSCOPY FLEXIBLE PROXIMA L DIAGNOSTIC Recall History of colonic polyps Health Maintenance Due Date Last Done Comments Pneumococcal Vaccine: 65+ Years (2 - PCV) 04/30/2013 04/30/2012 COVID-19 Vaccine (2022-24 season) 2023 05/29/2021, 09/24/2020, 08/28/2020 Influenza Vaccine (FLU shot) (#1) 2023 05/14/2021, 05/14/2021, 03/12/2020, Additional history exists Depression Screening 05/19/2023 05/19/2022 GFR 12/09/2023 12/08/2022, 08/28, 01/16/2022, Additional history exists HbA1c 12/09/2023 12/08/2022, 10/28, 12/05/2020, Additional history exists Albumin/Creatinine Ratio 12/08/2025 [...] Not on filedocumented as of this encounter Care Teams Family Service Aide Relationship Specialty Start Date End Date Aaron Stevens MD [address] [place] [address] PCP - General Family Medicine 07/29/23 documented as of this encounter
--- OUTSIDE RECORDS SUMMARY | 2023-09-17 00:49 | External Medical Summary | Summary of Care ---
Author Name Unknown Organization [facility] Address [address] [facility] [place] [address] Phone [phone] Care Team Providers Care Medical Professionals Name Role Phone Aaron Stevens MD Primary Care Provider [phone]- [phone] Reason for Referral * Evaluate & Treat - Unlimited Visits (Within 30 days (routine)) - Authorized Specialty Diagnoses / Procedures Referred By Rocio malone Referred To Contact Otolaryngology Diagnoses Acute sinusitis, recurrence not specified, unspecified location Globus sensation Aaron Stevens MD [address] [place] [address] Referral ID Status Reason Start Date Expiration Date Visits Requested Visits Authorized [id number] Authorized Specialty Services Required 07/29/[phone] Question Answer Referral Priority Within 30 days (routine) Where should this appointment be scheduled? [facility] Reason for Referral Throat Conditions Specific Condition: Globus Reason for Visit * Reason Comments Physical-Exam Annual check up Encounter Details Date Type Department Care Team (Late st Contact Info) Description 07/29/2023 10:00 AM EST [facility] [address] [place] [facility] [place] [id number] Aaron Stevens MD [address], [place] [id number] Atrial fibrillation, unspecified type (HCC)*; Acute sinusitis, recurrence not specified, unspecified location; Risk and functional assessment; Globus sensation; Prediabetes; BPH with obstruction/lower urinary tract symptoms; Elevated prostate specific antigen (PSA) Allergies No known active allergiesdocumented as of this encounter (statuses as of 08/17/2023) Medications Medication Sig Dispensed Refills Start Date End Date Status Metamucil Smooth Texture 58.6 % Oral Powder (Psyllium) Take by mouth 3 times a day. One scoop in 8 ounces of water, up to three times a day. 0 05/11/2020 Active One-A-Day Adult VitaCraves+DHA Oral Tablet Chewable Take by mouth. 0 Active Eliquis 5 MG Oral Tablet (Apixaban)Indicat ions:Typical atrial flutter (HCC) TAKE 1 TABLET BY MOUTH TWICE DAILY every morning and before bedtime 180 Tablet 3 12/23/2022 Active hydroCHLOROthiazi de 25 MG Oral Tablet (Hydrodiuril)Shanika cations:PAF (paroxysmal atrial fibrillation) (HCC),HTN, goal below 140/90 TAKE 1 TABLET BY MOUTH EVERY MORNING 90 Tablet 3 03/20/2023 Active Pravastatin Sodium 40 MG Oral Tablet (Pravachol)Indica tions:Dyslipidemi a TAKE 1 TABLET BY MOUTH ONCE DAILY 90 Tablet 3 03/19/2023 Active Metoprolol Succinate ER 25 MG Oral Tablet Extended Release 24 Hour (toPROL XL)Indications:HT N, goal below 140/90 Take 1 tablet by mouth once daily as needed for hypertension. 90 Tablet 3 05/03/2023 Active Lisinopril 40 MG Oral TabletIndications :HTN, goal below 140/90 Take 1 Tablet by mouth in the morning. 90 Tablet 3 09/01/2022 08/10/2023 Discontinued documented as of this encounter (statuses as of 08/17/2023) Active Problems Problem Noted Date Diagnosed Date [...] as of this encounter (statuses as of 08/17/2023) Resolved Problems Problem Noted Date Diagnosed Date Resolved Date 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 05/11/2020 documented as of this encounter (statuses as of 08/17/2023) Immunizations Name Administration Dates Next Due COVID-19 mRNA, LNP-s, No Pre serve, 2-Dose Series ([employer]) 05/29/2021,09/24/2020,08/28/2020 Pneumococcal Polysaccharide PPV23 (Pneumovax) 04/30/2012 Season [...] Date Smoking Tobacco: Never Smokeless Tobacco: Never Tobacco Cessation:Counseling Given: Not Answered Alcohol Use Standard Drinks/Week Comments Yes 0 [...] on file documented as of this encounter Last Filed Vital Signs Vital Sign Reading Time Taken Comments Blood Pressure 128/72 07/29/2023 9:57 AM EST Pulse 62 07/29/2023 9:57 AM EST Temperature 36.6 C (97.8 F) 07/29/2023 9:57 AM ES T Respiratory Rate 20 07/29/2023 9:57 AM EST Oxygen Saturation 98% 07/29/2023 9:57 AM EST Inhaled Oxygen Concentration - - Weight 90.4 kg (199 lb 3.2 oz) 07/29/2023 9:57 A M EST Height 175.3 cm (5' 9") 07/29/2023 9:57 AM EST Body Mass Index 29.42 07/29/2023 9:57 AM EST documented in this encounter Patient Instructions * Patient Instructions* Soni Estrella LPN - 07/29/2023 9:57 AM EST Patient Instructions - Fall Prevention (This education is for all patients over 65 regardless of symptoms) Remember to take your current medications as prescribed. In order to prevent falls, you are encouraged to: Exercise Utilize assistive/adaptive devices Avoid multifocal lenses when walking Avoid hazards in home Maintain a regular toileting schedule Any questions please contact our office. Preventing Falls in the Home (This education is for all patients over 65 regardless of symptoms) As you get older, falls are more likely. Thats because your reaction time slows. Your muscles and joints may also get stiffer, making them less flexible. Illness, medications, and vision changes can also affect your balance. A fall could leave you unable to live on your own. To make your home safer, follow these tips: Floors Put nonskid pads under area rugs Remove throw rugs Replace worn floor coverings Tack carpets firmly to each step on carpeted stairs. Put nonskid strips on the edges of uncarpeted stairs Keep floors and stairs free of clutter and cords Arrange furniture so there are clear pathways Clean up any spills right away Bathrooms Install grab bars in the tub or shower Apply nonskid strips or put a nonskid rubber mat in the tub or shower Sit on a bath chair to bathe Use bathmats with nonskid backing Lighting Keep a flashlight in each room Put a nightlight along the pathway between the bedroom and the bathroom [employer] Patient Education Copyright 2008 - 2010 [employer] except where otherwise noted Preventing Falls: Exercises to Improve Balance, Flexibility, Strength, and Staying Power (This education is for all patients over 65 regardless of symptoms) Certain types of exercises may help make you less likely to fall. Try the ones below. Or do other exercises that your healthcare provider suggests. Depending on your health, you may need to start slowly. Dont let that stop you. Even small amounts of exercise can help you. Be sure to talk to yourhealthcare provider before starting any exercise program. Improve Balance Many types of exercise can help improve balance. Rigoberto chi and yoga are good examples. Heres another one to try. You can do it anytime and almost anywhere. Stand next to a counter or solid support. Push yourself up onto your tiptoes. Hold for 5 seconds. If you start to lose your balance, hold on to the counter. Rest and repeat 5 times. Work up to holding for 20 to 30 seconds, if you can. Increase Flexibility Being more flexible makes it easier for you to move around safely. Try exercises like the seated hamstring stretch. Sit in a chair and put one foot on a stool. Straighten your leg and reach with both hands down either side of your leg. Reach as far down your leg as you can. Hold for about 20 seconds. Go back to the starting position. Then repeat 5 times. Switch legs. Build Strength Resistance exercises help build strength. You can do them without equipment. Or you can use weights, elastic bands, or special machines. One such exercise is called the biceps curl. You can hold a 1 pound weight or even a can of soup. Do this exercise at least 3 times a week. Strive for everyday. Sit up straight in a chair. Keep your elbow close to your body and your wrist straight. Bend your arm, moving your hand up to your shoulder. Then slowly lower your arm. Repeat 5 times. Switch to the other arm. Build Your Staying Power Aerobic exercises make your heart and lungs stronger so you can keep moving longer. Walking and swimming are two of the best types of exercises you can do. Using a stationary bike is great, too. Find an aerobic exercise that you enjoy. Start slowly and build up. Even 5 minutes is helpful. Aimfor a goal of 30 minutes, at least 3 times a week. You dont have to do 30 minutes in one session. Break it up and walk a little throughout the day. More Helpful Tips Start easy. Slowly work up to doing more. Talk with your healthcare provider about the best exercises for you. Call senior centers or health clubs about exercise programs. If needed, have a family member watch you walk every so often to check your stability. Exercise with a friend. Choose an activity you both enjoy. Try exercises that you can do anytime, anywhere. Here are two examples. Have someone with you when you first try these: Practice walking by placing one foot right in front of the other. Stand up and sit down 10 times. Repeat this throughout the day. [employer] Patient Education Copyright 2009 - 2010 [employer] except where otherwise noted. Preventing Falls: Moving Safely Using a Cane or Walker (This education is for all patients over 65 regardless of symptoms) Keep the cane away from your feet so you dont trip. A walking aid, such as a cane or walker, can help you stay more independent and avoid falls. Remember to keep your walking aid within easy reach when youre in a chair or in bed. And learn how to use it safely so you dont injure yourself. Using a Cane If you have a stronger side, hold the cane on that side. Get your balance. Move the cane and your weaker leg forward. Support your weight on both the cane and your weaker side. Step with your stronger leg. Start again from step 1. If youre using a folding walker, be sure you know how to lock it open. Check that its locked open before each use. Using a Walker Roll the walker (or lift it, if youre using one without wheels) forward about 12 inches. Step forward with your weaker leg first. Use the walker to help keep your balance. Bring your other foot forward to the center of the walker. Start again from step 1. Helpful Tips Check with your healthcare provider about the right walking aid to use. Ask about a walker with a seat attached. Check the tips of your cane or walker to make sure they have nonskid covers. Move slowly from room to room. Dont cowan. Sit down to get dressed. Use a sourav pack or backpack to keep your hands free. Get help for jobs that mean climbing, even on a stepstool. [employer] Patient Education Copyright 2008 - 2010 [employer] except where otherwise noted. Treating Urinary Incontinence in Men (This education is for all patients over 65 regardless of symptoms) You can't always control the release of urine. You may leak urine. Or you may not be able to hold your urine until you can get to a bathroom. This is called urinary incontinence. The problem can be managed. Talk to your doctor about your treatment options. Taking Medications Prescription medications may help you. They may: Help the sphincter to work better. (This is the muscle that closes to keep urine from leaking out of the bladder.) Help stop the bladder from kj too often to push urine out. Help the bladder muscles contract with more force. Help relax the sphincter muscle and allow urine to flow more freely. Making Changes to Your Routine Certain changes in your daily routine may help. These include: Avoiding caffeine and alcohol. Using timed voiding. This is following a schedule for drinking fluids and urinating. Doing Kegel exercises daily. These exercises involve tightening the muscles in your sphincter and around your bladder to help strengthen them. Your doctor can explain how to do them. Using a Catheter A catheter is a narrow tube that is inserted through the urethra into the bladder. It drains urine.A condom catheter covers the penis. It channels urine into a collection bag. It is worn most of thetime. Intermittent catheterization means inserting a catheter to drain the bladder, then removing it. This is done on a regular schedule. Having Surgery If other options don't work, surgery may be recommended. If surgery is an option, your healthcare provider can discuss it with you and explain its risks and benefits. Healing After Prostate Surgery Surgery on the prostate gland can cause incontinence. Most often, the incontinence is only for a short time. It clears up when healing is complete. Very rarely, prostate surgery can result in permanent incontinence. documented in this encounter Progress Notes * Aaron Stevens MD - 07/29/2023 10:29 AM EST Subjective: Burton Rosas is a 78 year old male here today for Chief Complaint Patient presents with Physical-Exam Annual check up Atrial fibrillation, after COVID vaccinations -s/p cath ablation ([facility]) - did not keep -eliquis and metoprolol Eye injury last Apr - MRI sinus 07/15 Urology - [facility] T[facility]P Would like ENT referral - feels a lump. Feels like he can't swallow with exercise. Recurrent sinus issues. ANA Past Medical History: Diagnosis Date Aortic root dilatation (HCC) 04/01/2021 Atrial septal aneurysm 04/01/2021 Elevated prostate specific antigen (PSA) 05/11/2020 History of anal fissures 05/11/2020 History of gastric ulcer 05/11/2020 Mild mitral regurgitation 04/01/2021 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 Prediabetes 05/18/2020 Past Surgical History: Procedure Laterality Date AMPUTATION OF FINGER/THUMB Left 08/29/2020 partial with I&D repair of thumb/index finger COLONOSCOPY, DIAGNOSTIC (RECTUM) 06/03/2019 adenomatous polyps, repeat 3 yrs/COLONOSCOPY FLEXIBLE PROXIMAL DIAGNOSTIC performed by Catracho Ayoub MD at ENDOSCOPY [facility] COLONOSCOPY, DIAGNOSTIC (RECTUM) 10/17/2022 benign adenomatous polyp, repeat 5 yrs / COLONOSCOPY FLEXIBLE PROXIMAL DIAGNOSTIC performed by Rad Puentes MD at ENDOSCOPY [facility] TURP, RESIDUAL OR RECURRENT, COMPLETE 04/11/2022 Review of patient's allergies indicates: No Known Allergies Current Outpatient Medications Medication Sig Dispense Refill Metamucil Smooth Texture 58.6 % Oral Powder (Psyllium) Take by mouth 3 times a day. One scoop in 8 ounces of water, up to three times a day. One-A-Day Adult VitaCraves+DHA Oral Tablet Chewable Take by mouth. Eliquis 5 MG Oral Tablet (Apixaban) TAKE 1 TABLET BY MOUTH TWICE DAILY every morning and before bedtime 180 Tablet 3 hydroCHLOROthiazide 25 MG Oral Tablet (Hydrodiuril) TAKE 1 TABLET BY MOUTH EVERY MORNING 90 Tablet 3 Pravastatin Sodium 40 MG Oral Tablet (Pravachol) TAKE 1 TABLET BY MOUTH ONCE DAILY 90 Tablet 3 Metoprolol Succinate ER 25 MG Oral Tablet Extended Release 24 Hour (toPROL XL) Take 1 tablet by mouth once daily as needed for hypertension. 90 Tablet 3 Lisinopril 40 MG Oral Tablet TAKE 1 TABLET BY MOUTH EVERY MORNING 90 Tablet 1 No current facility-administered medications for this visit. Objective: BP 128/72 | Pulse 62 | Temp 36.6 C (97.8 F) (Temporal Artery) | Resp 20 | Ht 1.753 m(5' 9") | Wt 90.4 kg (199 lb 3.2 oz) | SpO2 98% | BMI 29.42 kg/m | BSA 2.1 m GEN: NAD HEENT: Benign NECK: Supple with no LAD, TM, JVD CHEST: CTA B CV: RRR ABD: Soft, NT/ND, No HSM, NABS EXT: No c,c,e Assessment and Plan: Atrial fibrillation, unspecified type (HCC) (Primary) Acute sinusitis, recurrence not specified, unspecified location - OTOLARYNGOLOGY REFERRAL OP Risk and functional assessment Globus sensation - OTOLARYNGOLOGY REFERRAL OP Prediabetes - HEMOGLOBIN A1C; Future; Expected date: 07/29/2023 BPH with obstruction/lower urinary tract symptoms Elevated prostate specific antigen (PSA) Follow Up: Return in about 1 year (around 07/29/2024) for cpe. | For: cpe | Check-out note: ENT referral 42 min with pt and chart review Aaron Stevens MD documented in this encounter Nursing Notes * Soni Estrella LPN - 07/29/2023 9:57 AM EST The patient has been properly identified by confirmation of name and date of . Chief Complaint Patient presents with Physical-Exam Annual check up documented in this encounter Plan of Treatment Upcoming Encounters Date Type Department Care Team (Late st Contact Info) Description 08/27/2023 7:40 AM EST Laboratory Laboratory, [place] [address] [place] [facility] [place] [phone] [facility] [address] [place] [facility] [address] 09/21/2023 11:30 AM EDT Office Visit Otolaryngology, [place] [address] [place] [address] Nadine Sepulved[facility] [address] [facility] [address] 10/16/2023 1:00 PM EDT Imaging Cardiac Studies, [facility] [address] [facility] [place] [address] 10/30/2023 2:30 PM EDT Office Visit Cardiology, [facility] [address] [facility] [place] [address] Macie Emery CRNP [address] [facility] [place] [phone] 06/07/2024 10:30 AM EST Office Visit [facility] [address] [facility] [phone] Gill Lopez CRNP [address] [facility] [address] 08/03/2024 9:20 AM EST Office Visit [facility] [place] [address] [facility] [phone] Aaron Stevens MD [address] [place] [facility] [place] [address] Scheduled Orders Name Type Priority Associated Diagnoses Orde r Schedule HEMOGLOBIN A1C Lab Routine Prediabetes Expected: 07/29/2023 (Approximate), Expires: 07/28/2024 Scheduled Procedures Name Priority Associated Diagnoses Date/Ti me COLONOSCOPY FLEXIBLE PROXIMA L DIAGNOSTIC Recall History of colonic polyps Scheduled Referrals Name Type Priority Associated Diagnoses Orde r Schedule OTOLARYNGOLOGY REFERRAL OP Referral Within 30 days (routine) Acute sinusitis, recurrence not specified, unspecified location Globus sensation Ordered: 07/29/2023 Health Maintenance Due Date Last Done Comments Pneumococcal Vaccine: 65+ Years (2 of 2 - PCV) 04/30/2013 04/30/2012 COVID-19 Vaccine (4 - 2022-24 season) 2023 05/29/2021, 09/24/2020, 08/28/2020 Influenza Vaccine [...] as of this encounter Visit Diagnoses Diagnosis Atrial fibrillation, unspecified type (HCC)- Primary Acute sinusitis, recurrence not specified, unspecified location Risk and functional assessment Screening for unspecified condition Globus sensation Gastrointestinal malfunction arising from mental factors Prediabetes Other abnormal glucose BPH with obstruction/lower urinary tract symptoms Hypertrophy of prostate with urinary obstruction and other lower urinary tract symptoms (LUTS) Elevated prostate specific antigen (PSA) documented in this encounter Care Teams Medical Professionals Relationship Specialty Start Date End Date Aaron Stevens MD [address] [place] [address] PCP - General Family Medicine 07/29/23 documented as of this encounter
--- OUTSIDE RECORDS SUMMARY | 2023-09-17 00:49 | External Medical Summary | Summary of Care ---
Author Name Unknown Organization [facility] Address [address] [place] [place] [address] Phone [phone] Care Team Providers Care Mechanical Repair Worker Name Role Phone Eliseo Brown MD Primary Care Provider +1- [phone] Reason for Visit * Reason Comments eRx-Medication Refill Encounter Details Date Type Department Care Team (Late st Contact Info) Description 08/09/2023 Refill [facility] [address] [place] [phone] Eliseo Brown MD [address] [place] [address] HTN, goal below 140/90 Allergies No known active allergiesdocumented as of this encounter (statuses as of 08/10/2023) Medications Medication Sig Dispensed Refills Start Date [...] MG Oral TabletIndications :HTN, goal below 140/90 TAKE 1 TABLET BY MOUTH EVERY MORNING 90 Tablet 1 08/10/2023 Active Lisinopril 40 MG Oral TabletIndications :HTN, goal below 140/90 Take 1 Tablet by mouth in the morning. 90 Tablet 3 09/01/2022 08/10/2023 Discontinued documented as of this encounter (statuses as of 08/10/2023) Active Problems Problem Noted Date Diagnosed Date [...] as of this encounter (statuses as of 08/10/2023) Resolved Problems Problem Noted Date Diagnosed Date Resolved Date 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 05/11/2020 documented as of this encounter (statuses as of 08/10/2023) Immunizations Name Administration Dates Next Due COVID-19 mRNA, LNP-s, No Pre serve, 2-Dose Series ([employer]) 05/29/2021,09/24/2020,08/28/2020 Pneumococcal Polysaccharide PPV23 (Pneumovax) 04/30/2012 Season [...] on file documented as of this encounter Miscellaneous Notes * Telephone Encounter - [facility] - 08/10/2023 12:20 PM ESTSigned Prescriptions: Disp Refills Lisinopril 40 MG Oral Tablet 90 Tab*1 Sig: TAKE 1 TABLET BY MOUTH EVERY MORNINGAuthorizing Provider: ELISEO BROWN User: MAICO MEJIA documented in this encounter Plan of Treatment Upcoming Encounters Date Type Department Care Team (Late st Contact Info) Description 08/27/2023 7:40 AM EST Laboratory Laboratory, [place] [address] [place] [facility] [place] [phone] [facility] [address] [place] [facility] [place] [place] [address] 09/21/2023 11:30 AM EDT Office Visit Otolaryngology, [place] [address] [place] [address] Nadine Sepulveda MD [address] [facility] [place] [address] 10/16/2023 1:00 PM EDT Imaging Cardiac Studies, [facility] [address] [facility] [place] [address] 10/30/2023 2:30 PM EDT Office Visit Cardiology, [facility] [address] [facility] [place] [address] Macie Emery CRNP [address] [facility] [place] [phone] 06/07/2024 10:30 AM EST Office Visit Sleep Disorders [facility] [address] [facility] [place] [phone] Gill Lopez CRNP [address] [facility] [place] [address] 08/03/2024 9:20 AM EST Office Visit [facility] [address] [facility] [phone] Eliseo Brown MD [address] [place] [facility] [address] Scheduled Procedures Name Priority Associated Diagnoses Date/Ti me COLONOSCOPY FLEXIBLE PROXIMA L DIAGNOSTIC Recall History of colonic polyps Health Maintenance Due Date Last Done Comments Pneumococcal Vaccine: 65+ Years (2 - PCV) 04/30/2013 04/30/2012 COVID-19 Vaccine ( - 2022- season) 2023 05/29/2021, 09/24/2020, 08/28/2020 Influenza Vaccine [...] as of this encounter Visit Diagnoses Diagnosis HTN, goal below 140/90 Unspecified essential hypertension documented in this encounter Care Teams Mechanical Repair Worker Relationship Specialty Start Date End Date Eliseo Brown MD [address] [place] [address] PCP - General Family Medicine 07/29/23 documented as of this encounter
--- OUTSIDE RECORDS SUMMARY | 2023-09-17 00:49 | External Medical Summary | Summary of Care ---
Author Name Unknown Organization [facility] Address [address] [facility] [place] [address] Phone [phone] Care Team Providers Care Mental Health Associate Name Role Phone Venancio Peralta MD Primary Care Provider + Reason for Referral * Precert (Within 10 days (routine)) - Authorized Specialty Diagnoses / Procedures Referred By Contac t Referred To Contact Cardiac Studies Diagnoses PAF (paroxysmal atrial fibrillation) (HCC) HTN, goal below 130/80 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 Dyslipidemia Aortic root dilatation (HCC) Family history of premature CAD Chest pain, unspecified type Procedures ECHO, STRESS (EXERCISE) W/ PHYSICIAN Macie Emery CRNP [address] [place] [address] [address] Referral ID Status Reason Start Date Expiration Date V isits Requested Visits Authorized [id number] Authorized Precert 07/21/2023 999 999 Reason for Visit * Reason Comments Follow Up Encounter Details Date Type Department Care Team (Late st Contact Info) Description 07/21/2023 11:30 AM EST Office Visit Cardiology, [facility] [address] [facility] [place] [phone] Macie Emery CRNP [address] [place] [address] PAF (paroxysmal atrial fibrillation) (HCC)*; Family history of premature CAD; Chest pain, unspecified type; HTN, goal below 130/80; Tachy-romario syndrome (HCC); S/P ablation of atrial flutter; Dyslipidemia; Aortic root dilatation (HCC) Allergies No known active allergiesdocumented as of this encounter (statuses as of 08/04/2023) Medications Medication Sig Dispensed Refills Start Date [...] as of this encounter (statuses as of 08/04/2023) Active Problems Problem Noted Date Diagnosed Date [...] as of this encounter (statuses as of 08/04/2023) Resolved Problems Problem Noted Date Diagnosed Date Resolved Date 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 05/11/2020 documented as of this encounter (statuses as of 08/04/2023) Immunizations Name Administration Dates Next Due COVID-19 mRNA, LNP-s, No Pre serve, 2-Dose Series ([employer]) 05/29/2021,09/24/2020,08/28/2020 Pneumococcal Polysaccharide PPV23 (Pneumovax) 04/30/2012 Season [...] Sign Reading Time Taken Comments Blood Pressure 130/74 07/21/2023 11:43 AM EST Pulse 60 07/21/2023 11:43 AM EST Temperature - - Respiratory Rate 14 07/21/2023 11:43 AM EST Oxygen Saturation - - Inhaled Oxygen Concentration - - Weight 90.3 kg (199 lb) 07/21/2023 11:43 AM EST Height - - Body Mass Index 29.39 06/05/2023 10:12 AM EST documented in this encounter Progress Notes * Earnestine Giles DO - 08/04/2023 10:57 AM EST I have reviewed the advanced practitioner's documentation on the date of service referenced in note, and I agree with, and take responsibility for the plan of care. Pt seen in routine EP 6 month f/u due to TBS He continues to overall stay active an feel ok; at times he does have some "lump" feeling in his chest with exercise He has not had any pAF episodes since Sept Continue to monitor HR and BP at home No indication for a ppm at this juncture No change in cardiac medications We will do an exercise echo stress test secondary to the "lump" in his chest and his family historyand cardiac risk factros (MR, HTN, Prediabetes) EP f/u after stress test Earnestine Giles DO Department of Cardiology [facility] [place] [address] documented in this encounter Nursing Notes * Gisele Nuñez LPN - 07/21/2023 11:43 AM EST Examination Room: 17 Name: Burton Rosas Date of : 1945 Reason for Visit: Follow up Problems/Concerns: denies Interim Hosp(s): denies Chest Pain/SOB: denies MyChart Discussed: ALREADY ACTIVE Patient was instructed to not get up on the exam table until directed and assisted by their provider; patient is to remain seated in the chair/ wheelchair/ exam table for fall prevention and safety reasons. Patient is aware staff will assist stepping down off exam table with personnel. documented in this encounter Plan of Treatment Upcoming Encounters Date Type Department Care Team (Late st Contact Info) Description 09/21/2023 11:30 AM EDT Office Visit Otolaryngology, [facility] [address] [place] [address] [address] Nadine Sepulveda MD [address] [place] [address] [address] 10/16/2023 1:00 PM EDT Imaging Cardiac Studies, [facility] [address] [address] 10/30/2023 2:30 PM EDT Office Visit Cardiology, [facility] [address] [place] [address] Macie Emery CRNP [address] [facility] [place] [phone] 06/07/2024 10:30 AM EST [facility] [address] [phone] Gill Lopez CRNP [address] [place] [address] 08/03/2024 9:20 AM EST Office Visit [facility] [address] [place] [facility] [place] [address] Aaron Stevens MD [address] [place] [facility] [place] [address] Scheduled Orders Name Type Priority Associated Diagnoses Orde r Schedule ECHO, STRESS (EXERCISE) W/ PHYSICIAN Echocardiology Routine PAF (paroxysmal atrial fibrillation) (HCC) HTN, goal below 130/80 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 Dyslipidemia Aortic root dilatation (HCC) Family history of premature CAD Chest pain, unspecified type Expected: 07/21/2023, Expires: 08/21/2024 Scheduled Procedures Name Priority Associated Diagnoses Date/Ti me COLONOSCOPY FLEXIBLE PROXIMA L DIAGNOSTIC Recall History of colonic polyps Health Maintenance Due Date Last Done Comments Pneumococcal Vaccine: 65+ Years (2 - PCV) 04/30/2013 04/30/2012 COVID-19 Vaccine (4 - 2022- season) 2023 05/29/2021, 09/24/2020, 08/28/2020 [...] as of this encounter Visit Diagnoses Diagnosis PAF (paroxysmal atrial fibrillation) (HCC)- Primary Atrial fibrillation Family history of premature CAD Family history of ischemic heart disease Chest pain, unspecified type HTN, goal below 130/80 Unspecified essential hypertension Tachy-romario syndrome (HCC) Sinoatrial node dysfunction S/P ablation of atrial flutter Other postprocedural status Dyslipidemia Other and unspecified hyperlipidemia Aortic root dilatation (HCC) Thoracic aortic ectasia documented in this encounter Care Teams Mental Health Associate Relationship Specialty Start Date End Date Venancio Peralta MD [address] [place] [address] PCP - General Internal Medicine 05/11/20 07/28/23 documented as of this encounter
[2023-09-17 07:23] LABS: Basophils # (auto) 0.03 K/uL (0.00-0.20); Basophils % (auto) 0.5 %; Eosinophils # (auto) 0.08 K/uL (0.00-0.50); Eosinophils % (auto) 1.3 %; Hematocrit (blood only) 46.2 % (42.0-52.0); Hemoglobin 15.4 g/dl (14.0-18.0); Immature Granulocytes # (auto) 0.03 K/uL (0.01-0.20); Immature Granulocytes % (auto) 0.5 %; Lymphocytes # (auto) 1.79 K/uL (1.20-3.40); Lymphocytes % (auto) 29.3 %; Mean Corpuscular Hemoglobin 30.5 pg (25.0-34.0); Mean Corpuscular Hgb Conc 33.3 g/dL (32.0-36.0); Mean Corpuscular Volume 91.5 fL (80.0-100.0); Monocytes # (auto) 0.41 K/uL (0.11-0.59); Monocytes % (auto) 6.7 %; Neutrophils # (auto) 3.77 K/uL (1.40-6.50); Neutrophils % (auto) 61.7 %; Platelet Count 194 K/uL (130-400); RDW Coefficient of Variation 12.3 % (11.5-14.5); RDW Standard Deviation 41.1 fL (36.4-46.3); Red Blood Count 5.05 M/uL (4.70-6.10); White Blood Count 6.11 K/ul (4.8-10.8)
[2023-09-17 07:35] LABS: Albumin Globulin Ratio 1.9 (0.9-2); Albumin Level 4.7 gm/dl (3.4-5.0); BUN Creatinine Ratio 18.8 (10-20); Bilirubin,Total 1.1 mg/dl (0.2-1.0); Calcium 9.9 mg/dl (8.6-10.3); Chol HDL Ratio 3.2 (0-5); Creatinine Clr Calc Pharmacy 66.1 ml/min; Est GFR (Non-African American) 75.9 ml/min; Globulin 2.5 gm/dl (2.5-4.0); Magnesium 2.1 mg/dl (1.7-2.4); Potassium 3.9 mmol/L (3.5-5.1); Total Protein 7.2 gm/dl (6.0-8.3)
[2023-09-17] MEDS: hydroCHLOROthiazide 25 MG TAB PO SCH (08:27)
[2023-09-17] MEDS ORDERED: METOPROLOL SUCC 25MG EXT REL TAB PO SCH (09:00)
[2023-09-17 09:14] LABS: Troponin I High Sensitivity 35.2 pg/ml (0-20)
--- NOTE | 2023-09-17 09:41 | Electrocardiogram Report ---
Test Reason : Blood Pressure : / mmHG Vent. Rate : 049 BPM Atrial Rate : 049 BPM P-R Int : 200 ms QRS Dur : 114 ms QT Int : 486 ms P-R-T Axes : 072 -31 041 degrees QTc Int : 439 ms Sinus bradycardia Left axis deviation Incomplete right bundle branch block Abnormal ECG When compared with ECG of 16-SEP-2023 12:02, QRS axis Shifted left T wave inversion no longer evident in Inferior leads Nonspecific T wave abnormality, worse in Lateral leads Confirmed by Kiran Phan ([id number]) on 09/17/2023 9:41:03 AM Referred By: REFERRED SELF Confirmed By:Brandt Phan
--- NOTE | 2023-09-17 09:45 | Pre Anesthesia Assessment ---
Date of Service September 17, 2023 Pre Sedation Assessment Vital Signs Temp Pulse Pulse Pulse Resp BP BP 09/17/23 09:17 54 L 16 182/87 H 09/17/23 07:55 09/17/23 07:27 36.6 C 55 L 20 152/81 H 09/17/23 07:00 45 L 09/17/23 03:57 36.5 C 54 L 18 144/81 H 09/16/23 23:14 44 L 09/16/23 22:14 36.4 C 45 L 14 156/87 H 09/16/23 19:27 36.8 C 16 146/85 H 09/16/23 17:42 64 09/16/23 14:55 36.9 C 55 L 20 158/96 H 09/16/23 12:34 52 L 09/16/23 11:55 36.6 C 61 20 148/79 H Pulse Ox O2 Del Method 09/17/23 09:17 98 Room Air 09/17/23 07:55 Room Air 09/17/23 07:27 95 Room Air 09/17/23 07:00 09/17/23 03:57 97 Room Air 09/16/23 23:14 09/16/23 22:14 96 Room Air 09/16/23 19:27 96 Room Air 09/16/23 17:42 09/16/23 14:55 99 Room Air 09/16/23 12:34 09/16/23 11:55 97 Room Air Cardiovascular + regular rate and + regular rhythm + S1 normal and + S2 normal; no murmur + femoral pulses present and + radial pulses present; no JVD no edema Respiratory + respiratory effort normal; no respiratory distress, no labored breathing and no retractions no crackles, no rales, no rhonchi and no wheezes Pre-Sedation Airway Assessment Smoking Status: Never smoker Hx Sleep Apnea: No Short, Thick Neck: No Thyromental Distance: > or= 3.5 Finger Breadths Oral Cavity: + WNL Mallampati Class: III ASA: ASA3 NPO Status Date of Last Intake of Fluids: 09/16/23 Time of Last Intake of Fluids: 20:00 Date of Last Intake of Solid Food: 09/16/23 Time of Last Intake of Solid Foods: 20:00 Procedure Planning Contraindications for Sedation: none Current Medications Reviewed: Yes Notes The planned sedation has been discussed with the patient. Informed Consent was obtained. I have identified the patient, determined the appropriateness of sedation and have assessed the patient immediately prior to the procedure. All medicine(s) and interventions are by my order.
--- OUTSIDE RECORDS SUMMARY | 2023-09-17 09:46 | External Medical Summary | Summary of Care ---
Author Name Unknown Organization [facility] Address [address] [facility] [place] [address] Phone [phone] Care Team Providers Care Manager Dish Name Role Phone Aaron Stevens MD Primary Care Provider [phone]- [phone] Reason for Visit * Reason Comments Acute Encounter Details Date Type Department Care Team (Late st Contact Info) Description 09/16/2023 10:30 AM EDT Office Visit Cardiology, [facility] [address] [place] [address] Germán Arellano, [address] [place] [address] Chest pain due to myocardial ischemia, unspecified ischemic chest pain type*; Abnormal stress echo Allergies No known active allergiesdocumented as of this encounter (statuses as of 09/16/2023) Medications Medication Sig Dispensed Refills Start Date [...] as of this encounter (statuses as of 09/16/2023) Active Problems Problem Noted Date Diagnosed Date [...] as of this encounter (statuses as of 09/16/2023) Resolved Problems Problem Noted Date Diagnosed Date Resolved Date 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 05/11/2020 documented as of this encounter (statuses as of 09/16/2023) Immunizations Name Administration Dates Next Due COVID-19 mRNA, LNP-s, No Pre serve, 2-Dose Series ([employer]) 05/29/2021,09/24/2020,08/28/2020 Pneumococcal Polysaccharide PPV23 (Pneumovax) 04/30/2012 Season [...] Sign Reading Time Taken Comments Blood Pressure 108/64 09/16/2023 10:34 AM EDT Pulse 68 09/16/2023 10:34 AM EDT Temperature - - Respiratory Rate 16 09/16/2023 10:34 AM EDT Oxygen Saturation - - Inhaled Oxygen Concentration - - Weight 90.7 kg (200 lb) 09/16/2023 10:34 AM EDT Height - - Body Mass Index 29.53 07/29/2023 9:57 AM EST documented in this encounter Progress Notes * Germán Arellano, DO - 09/16/2023 10:57 AM EDT Cardiology Outpatient Follow-up Burton Rosas is a 78 year old male who is seen for follow-up of abnormal stress test. HPI: This is a 78-year-old male patient who is followed by the EP service with a history of atrial flutter and previous CTI ablation, now with paroxysmally atrial fibrillation. He is currently on Eliquis and metoprolol. Recently, he was seen by the EP service and expressed symptoms of throat discomfort with activity consistent with new onset angina. The patient underwent an exercise stress echocardiogram today. He developed his typical throat discomfort in stage II of the Neal protocol with diffuseST segment depressions. The stress echocardiogram indicated dilatation of the left ventricle post exercise and diffuse hypokinesis but more so it appears in the lateral segments. He had a prolonged recovery of his ST segments and his chest pain continued into recovery requiring a sublingual nitro which resolved his discomfort completely. I saw him after the stress test that discussed results and arrange for a cardiac catheterization. Past Medical History: Diagnosis Date Aortic root dilatation (HCC) 04/01/2021 Atrial septal aneurysm 04/01/2021 Elevated prostate specific antigen (PSA) 05/11/2020 History of anal fissures 05/11/2020 History of gastric ulcer 05/11/2020 Mild mitral regurgitation 04/01/2021 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 Prediabetes 05/18/2020 Patient Active Problem List Diagnosis Code HTN, goal below 140/90 I10 Dyslipidemia E78.5 BPH with obstruction/lower urinary tract symptoms N40.1, N13.8 ANA (obstructive sleep apnea) G47.33 Hx of actinic keratosis Z87.2 Elevated prostate specific antigen (PSA) R97.20 History of anal fissures Z87.19 History of gastric ulcer Z87.11 Prediabetes R73.03 History of 2019 novel coronavirus disease (COVID-19) Z86.16 Typical atrial flutter (HCC) I48.3 Aortic root dilatation (HCC) I77.810 Atrial septal aneurysm I25.3 Mild mitral regurgitation I34.0 S/P ablation of atrial flutter Z98.890, Z86.79 PAF (paroxysmal atrial fibrillation) ([facility]) I48.0 Tachy-romario syndrome ([facility]) I49.5 Past Surgical History: Procedure Laterality Date AMPUTATION OF FINGER/THUMB Left 08/29/2020 partial with I&D repair of thumb/index finger COLONOSCOPY, DIAGNOSTIC (RECTUM) 06/03/2019 adenomatous polyps, repeat 3 yrs/COLONOSCOPY FLEXIBLE PROXIMAL DIAGNOSTIC performed by Catracho Ayoub MD at [facility] COLONOSCOPY, DIAGNOSTIC (RECTUM) 10/17/2022 benign adenomatous polyp, repeat 5 yrs / COLONOSCOPY FLEXIBLE PROXIMAL DIAGNOSTIC performed by Rad Puentes MD at [facility] TURP, RESIDUAL OR RECURRENT, COMPLETE 04/11/2022 Family History Problem Relation Age of Onset Heart attack Father Social History Tobacco Use Smoking status: Never Smokeless tobacco: Never Vaping Use Vaping Use: Never used Substance Use Topics Alcohol use: Yes Comment: less than 1 beer per month Drug use: Never Review of patient's allergies indicates: No Known [...] No current facility-administered medications for this visit. ROS: Review of Systems: See HPI for pertinent positives. All other review of systems is negative. PHYSICAL EXAMINATION BP 108/64 | Pulse 68 | Resp 16 | Wt 90.7 kg (200 lb) | BMI 29.53 kg/m | BSA 2.1 m Body mass index is 29.53 kg/m. General: no acute distress and stated age Head: normocephalic, no masses, lesions, tenderness or abnormalities Eyes: conjunctiva are pink and non-injected, sclera clear Neck: supple, no adenopathy, no bruits, normal jugular venous pulse, no hepatojugular reflux Chest: normal shape and normal respiratory effort Lungs: clear to auscultation and percussion Cardiac Exam: - regular rate & rhythm, no murmurs gallops or rubs - normal S1, normal S2 Pulses: 2(+) throughout Abdomen: abdomen soft, non-tender, no abnormal masses and no hepatosplenomegaly Musculoskeletal: no gait disturbance, no joint inflammation, no deforming arthritis Extremities: no edema and no cyanosis Neuro: grossly normal exam Laboratory Data Review: Results for orders placed or performed in visit on 03/31/18 LIPID PANEL Result Value Ref Range HOURS FASTING >8 HOURS hours Triglycerides 88 <200 mg/dL Cholesterol 195 <200 mg/dL HDL Cholesterol 50 >39 mg/dL Cholesterol-HDL Ratio 3.9 LDL Cholesterol 127 0 - 129 mg/dL Results for orders placed or performed in visit on 12/08/22 LIPID PANEL WITH DIRECT LDL IF TG IS HIGH Result Value Ref Range Triglycerides 59 <=174 mg/dL Cholesterol 143 <200 mg/dL HDL Cholesterol 52 >39 mg/dL Non-HDL Cholesterol 91 <=159 mg/dL LDL Cholesterol 79 <=129 mg/dL Lab Results Component Value Date/Time HDL CHOLESTEROL - [facility] 52 12/08/2022 07:44 AM HDL CHOLESTEROL - [facility] 52 05/15/2020 08:01 AM Lab Results Component Value Date/Time CHOLESTEROL - [facility] 143 12/08/2022 07:44 AM CHOLESTEROL - [facility] 169 05/15/2020 08:01 AM CHOLESTEROL-HDL RATIO - [facility] 3.9 03/31/2018 07:55 AM Lab Results Component Value Date/Time GLUCOSE - [facility] 107 12/08/2022 07:44 AM GLUCOSE - [facility] 114 05/15/2020 08:01 AM GLUCOSE, URINE - [facility] NEGATIVE 03/31/2018 07:55 AM Lab Results Component Value Date/Time HEMOGLOBIN A1C - [facility] 6.1 (H) 08/27/2023 07:40 AM HEMOGLOBIN A1C - [facility] 6.0 (H) 05/17/2020 07:47 AM No components found for: "[id number]" No results found for: "MICROALBU" Lab Results Component Value Date/Time CREATININE - [facility] 1.0 12/08/2022 07:44 AM CREATININE - [facility] 1.1 05/15/2020 08:01 AM CREATININE, RANDOM URINE - [facility] 151 12/08/2022 07:44 AM Lab Results Component Value Date/Time ALT - [facility] 19 12/08/2022 07:44 AM ALT - [facility] 33 05/15/2020 08:01 AM Impression: 1. New onset angina 2. Markedly abnormal exercise stress echocardiogram 3. History of PAF and previous CTI for atrial flutter 4. Mild MR Plan: The patient had a markedly abnormal stress echocardiogram. I discussed the results with him and recommended a cardiac catheterization. In order to expedite I think he should be admitted to the hospital today for either the cardiac catheterization to be done today or in the morning. I will make those arrangements. I have explained the risk, benefit and intent to the procedure to the patient including the potential for catheter based interventions such as balloon angioplasty when she coronary stents. The patient has been NPO for his stress test and I asked him not to eat anything on his way [facility]. This chart was completed in part utilizing [employer] Speech Voice Recognition Software. Grammatical errors, random word insertions, prounoun errors, and incomplete sentences are an occasional consequence of this system due to software limitations, ambient noise, and hardware issues. Any formal questions or concerns about the content, text, or information contained within the body of this dictation should be directly addressed to the provider for clarification. I spent a total of 40-54 minutes (exact time 54 mins) on the date of service in preparation, delivery, and documentation of the care provided to Burton Rosas excluding any time spent in the performance of separately billed services. Germán Arellano DO Cardiology, [address] [address] 09/16/2023 documented in this encounter Nursing Notes * Carlos Manuel Leroy, RN - 09/16/2023 10:32 AM EDT Examination Room: room 17 Name: Burton Rosas Date of : (1945). Reason for Visit: for acute visit Interim Hospitalization(s): denies Problems/Concerns: just finished with stress echo and it was positive Chest Pain/SOB: denies [facility] Discussed: Not applicable [facility] is a way you can talk to your provider online through e-mail. Would you like to sign up? I can activate it for you? ALREADY ACTIVE Patient was instructed to not get up on the exam table until directed and assisted by their provider; patient is to remain seated in the chair/ wheelchair/ exam table for fall prevention and safety reasons. Patient is aware to have assistance to step down off exam table with personnel. Patient voiced full comprehension of instructions. documented in this encounter Plan of Treatment Upcoming Encounters Date Type Department Care Team (Late st Contact Info) Description 10/15/2023 11:00 AM EDT Office Visit Otolaryngology, [facility] [address] [address] Nadine Sepulveda MD [address] [address] 11/24/2023 10:00 AM EDT Office Visit Cardiology, [facility] [address] [address] Macie Emery CRNP [address] [place] [address] [place] [address] 06/07/2024 10:30 AM EST Office Visit Sleep Disorders [facility] [address] [phone] Gill Lopez CRNP [address] [place] [address] [address] 08/03/2024 9:20 AM EST [address] [address] Aaron Stevens MD [address] [facility] [place] [address] Scheduled Procedures Name Priority Associated Diagnoses Date/Ti me COLONOSCOPY FLEXIBLE PROXIMA L DIAGNOSTIC Recall History of colonic polyps Health Maintenance Due Date Last Done Comments Pneumococcal Vaccine: 65+ Years (2 of 2 - PCV) 04/30/2013 04/30/2012 COVID-19 Vaccine (2022- season) 2023 05/29/2021, 09/24/2020, 08/28/2020 Influenza Vaccine (FLU shot) (#1) 2023 05/14/2021, 05/14/2021, 03/12/2020, Additional history exists Depression Screening 05/19/2023 05/19/2022 GFR 12/09/2023 12/08/2022, 08/28, 01/16/2022, Additional history exists HbA1c 08/26/2024 08/27/2023, 11/27, 11/21/2021, Additional history exists Albumin/Creatinine Ratio 12/08/2025 12/08/2022 [...] as of this encounter Visit Diagnoses Diagnosis Chest pain due to myocardial ischemia, unspecified ischemic chest pain type- Primary Abnormal stress echo Other nonspecific abnormal cardiovascular system function study documented in this encounter Care Teams Manager Dish Relationship Specialty Start Date End Date Aaron Stevens MD [address] [place] [address] [address] PCP - General Family Medicine 07/29/23 documented as of this encounter
--- OUTSIDE RECORDS SUMMARY | 2023-09-17 09:46 | External Medical Summary | Summary of Care ---
Author Name Unknown Organization [facility] Address [address] [facility] [place] [address] Phone [phone] Care Team Providers Care Solder Cream Maker Name Role Phone Aaron Stevens MD Primary Care Provider [phone]- [phone] Reason for Visit * Reason Onset Date Comments Information 09/16/2023 CAll placed to Encounter Details Date Type Department Care Team (Late st Contact Info) Description 09/16/2023 Telephone Cardiology, [facility] [address] [place] [address] Germán Arellano, [address] [place] [address] Information (CAll placed to) Allergies No known active allergiesdocumented as of [...] mRNA, LNP-s, No Pre serve, 2-Dose Series ([employer]) 05/29/2021,09/24/2020,08/28/2020 Pneumococcal Polysaccharide PPV23 (Pneumovax) 04/30/2012 Season [...] encounter Miscellaneous Notes * Telephone Encounter - Carlos Manuel Leroy RN - 09/16/2023 11:21 AM EDT Called [facility] ER an spoke to charge nurse in regards to the patient coming to the ER by private vehicle. Report given. Dr. Arellano will notify DR. Scherer documented in this encounter Plan of Treatment Upcoming Encounters Date Type Department Care Team (Jigar whittaker Contact Info) Description 10/15/2023 11:00 AM EDT Office Visit Otolaryngology, [facility] [address] [place] [address] [address] Nadine Sepulveda MD [address] [facility] [place] [address] 11/24/2023 10:00 AM EDT Office Visit Cardiology, [facility] [address] [facility] [place] [address] Macie Emery CRNP [address] [facility] [place] [address] 06/07/2024 10:30 AM EST Office Visit Sleep Disorders [facility] [address] [facility] [place] [phone] Gill Lopez CRNP [address] [facility] [place] [address] 08/03/2024 9:20 AM EST Office Visit [place] [address] [place] [phone] Aaron Stevens MD [address] [place], [place] [id number] Scheduled Procedures Name Priority Associated Diagnoses Date/Ti [...] filedocumented as of this encounter Care Teams Solder Cream Maker Relationship Specialty Start Date End Date Aaron Stevens MD [address] [place] [address] PCP - General Family Medicine 07/29/23 documented as of this encounter
--- NOTE | 2023-09-17 09:49 | Cardiology Progress Note ---
Date of Service September 17, 2023 Assessment & Plan (1) Abnormal stress test: (2) ANA on CPAP: (3) HTN (hypertension): (4) Family history of premature CAD: (5) PAF (paroxysmal atrial fibrillation): (6) Atrial flutter: Plan 78-year-old patient with exertional angina and abnormal exercise stress echo demonstrating evidence of mid and apical lateral, and apical anterolateral hypokinesis. Risk versus benefit of cardiac catheterization discussed. Patient agreeable to proceed. Will administer 325 mg of oral aspirin prior to procedure. Consent obtained. Further recommendations pending cardiac catheterization results. Admission and Anticipated Discharge Date Admission Date: September 16, 2023 Subjective Patient seen and examined at bedside. No recurrent chest pain overnight. Telemetry with sinus rhythm and sinus bradycardia in the 50s-60s. No orthopnea, PND, or edema. Denies lightheadedness or dizziness. Blood pressure elevated this morning. A.m. dose of Toprol-XL held due to bradycardia Review of Systems Review of Systems: All systems reviewed & are unremarkable except as noted in Subjective Physical Exam Constitutional: well nourished; no acute distress ENMT: Mallampati Class: III Respiratory: normal respiratory effort; no respiratory distress, no labored breathing and no retractions Auscultation: no crackles, no rales, no rhonchi and no wheezes Cardiovascular: Rate/Rhythm: regular rate and regular rhythm Heart Sounds: normal S1 and normal S2; no murmur Vessels: femoral pulses present and radial pulses present; no JVD Extremities: no edema Gastrointestinal (Abdomen): Inspection/Auscultation: abdomen normal to inspection and normal bowel sounds; abdomen not distended Percussion/Palpation: abdomen soft; abdomen nontender, no guarding and abdomen not rigid Neurologic: CN's II-XI intact bilaterally and moves all extremities; no focal motor deficits Results & Data Vital Signs (Past 12 Hours) Vital Signs Temp Pulse Pulse Pulse Resp BP Pulse Ox 09/17/23 09:17 54 L 16 182/87 H 98 09/17/23 07:55 09/17/23 07:27 36.6 C 55 L 20 152/81 H 95 09/17/23 07:00 45 L 09/17/23 03:57 36.5 C 54 L 18 144/81 H 97 09/16/23 23:14 44 L 09/16/23 22:14 36.4 C 45 L 14 156/87 H 96 O2 Del Method 09/17/23 09:17 Room Air 09/17/23 07:55 Room Air 09/17/23 07:27 Room Air 09/17/23 07:00 09/17/23 03:57 Room Air 09/16/23 23:14 09/16/23 22:14 Room Air Laboratory Results Cardiac Enzymes 09/16/23 09/16/23 09/16/23 Range/Units 12:11 14:13 15:20 AST 22 (13-39) U/L Troponin I High Sens 39.9 H 128.7 H* D 135.8 H* (0-20) pg/ml 09/16/23 09/17/23 Range/Units 22:42 06:52 AST 23 (13-39) U/L Troponin I High Sens 58.0 H* D 35.2 H D (0-20) pg/ml Coagulation 09/16/23 Range/Units 12:11 PT 10.6 (9.0-12.0) Seconds APTT 31 (21-31) Seconds Lipids 09/17/23 Range/Units 06:52 Triglycerides 103 (0-150) mg/dl Cholesterol 179 (0-200) mg/dl HDL Cholesterol 56 mg/dl Cholesterol/HDL Ratio 3.2 (0-5) CBC 09/16/23 09/17/23 Range/Units 12:11 06:52 WBC 6.82 6.11 (4.8-10.8) K/ul RBC 4.73 5.05 (4.70-6.10) M/uL Hgb 14.7 15.4 (14.0-18.0) g/dl Hct 43.1 46.2 (42.0-52.0) % Plt Count 183 194 (130-400) K/uL Neut # (Auto) 5.04 3.77 (1.40-6.50) K/uL Lymph # (Auto) 1.31 1.79 (1.20-3.40) K/uL [place] # (Auto) 0.38 0.41 (0.11-0.59) K/uL Eos # (Auto) 0.03 0.08 (0.00-0.50) K/uL Baso # (Auto) 0.04 0.03 (0.00-0.20) K/uL Comprehensive Metabolic Panel 09/16/23 09/17/23 Range/Units 12:11 06:52 Sodium 140 141 (136-145) mmol/L Potassium 3.7 3.9 (3.5-5.1) mmol/L Chloride 103 102 (98-107) mmol/L Carbon Dioxide 33 H 34 H (21-32) mmol/L BUN 20 18 (6-23) mg/dl Creatinine 0.93 0.96 (0.6-1.4) mg/dl Glucose 111 H 126 H (70-99(Fasting)) mg/dl Calcium 9.9 9.9 (8.6-10.3) mg/dl AST 22 23 (13-39) U/L ALT 19 21 (7-52) U/L Alkaline Phosphatase 75 72 (34-104) U/L Total Protein 6.8 7.2 (6.0-8.3) gm/dl Albumin 4.5 4.7 (3.4-5.0) gm/dl Intake and Output 09/16/23 09/17/23 09/17/23 22:59 06:59 14:59 Intake Total 400 / 400 Balance 400 / 400 Intake: Oral 400 / 400 Other: # Unmeasured Voids 2 2 Weight 89.1 kg
--- NOTE | 2023-09-17 10:36 | Post Anesthesia Assessment ---
Date of Service September 17, 2023 Post Sedation Assessment Vital Signs Temp Pulse Pulse Pulse Resp BP Pulse Ox 09/17/23 15:54 58 L 09/17/23 15:41 63 19 159/98 H 97 09/17/23 14:47 63 19 146/76 H 97 09/17/23 13:47 66 18 133/86 99 09/17/23 13:07 55 L 19 178/100 H 99 09/17/23 12:47 63 20 164/95 H 97 09/17/23 12:32 55 L 19 162/81 H 96 09/17/23 12:26 55 L 20 140/88 96 09/17/23 12:15 36.8 C 58 L 18 163/88 H 96 09/17/23 12:00 36.8 C 61 18 169/92 H 95 09/17/23 09:17 54 L 16 182/87 H 98 09/17/23 07:55 09/17/23 07:27 36.6 C 55 L 20 152/81 H 95 09/17/23 07:00 45 L 09/17/23 03:57 36.5 C 54 L 18 144/81 H 97 09/16/23 23:14 44 L 09/16/23 22:14 36.4 C 45 L 14 156/87 H 96 09/16/23 19:27 36.8 C 16 146/85 H 96 09/16/23 17:42 64 O2 Del Method 09/17/23 15:54 09/17/23 15:41 Room Air 09/17/23 14:47 Room Air 09/17/23 13:47 Room Air 09/17/23 13:07 Room Air 09/17/23 12:47 Room Air 09/17/23 12:32 Room Air 09/17/23 12:26 Room Air 09/17/23 12:15 Room Air 09/17/23 12:00 Room Air 09/17/23 09:17 Room Air 09/17/23 07:55 Room Air 09/17/23 07:27 Room Air 09/17/23 07:00 09/17/23 03:57 Room Air 09/16/23 23:14 09/16/23 22:14 Room Air 09/16/23 19:27 Room Air 09/16/23 17:42 Recovery Score Respiration: Deep Breath/Cough Circulation: +/-20% PreAnes Value Consciousness: Arouseable (by name) Oxygen Saturation: > 92% On Room Air Discharge Sedation Level of Care: Phase I Post Sedation Plan On clinical assessment, the patient appears to have tolerated the sedation without complications. Patient is recovering as anticipated. Patient will continue to be monitored by nursing and may be discharged when sedation discharge criteria are met per below protocol. Upon Completions of procedure up to 15 minutes continue every 5 minute vital signs and the P.A.R. score; then discharge to a Phase I or Fast Track to Phase II per the following guidelines: * Discharge Patient to appropriate Phase II area if PAR is 8 or greater or return to pre- procedure baseline. The post - procedure orders will be as dir ected. * If PAR score is less than 8 or not return to pre-procedure baseline then patient will follow Phase I monitoring till PAR is reached for Phase II. The Phase I may be done in procedure room or may call to secure a Phase I area. * If naloxone or flumazenil are used for reversal, hold in Phase I for continued monitoring from when last reversal dose was given for a minimum of 60 minutes or longer pending the nurse and/or physician discretion of patient condition before discharge to Phase II. Please call the Sedation Physician to re-evaluate and complete post-note for discharge to Phase II area. Do NOT discharge from procedure sedation or Phase 1 until post- sedation evaluation note is complete by procedure /sedation MD Sedation Discharge Instructions to be given to the patient at discharge to home.
[2023-09-17] MEDS: NITROGLYCERIN/D5W 100MCG/ML 20ML SYR ONE (10:43)
[2023-09-17] MEDS: niCARdipine HCL INJ 2.5 MG/ML 10 ML AMP ONE (10:43)
[2023-09-17] MEDS: MIDAZOLAM HCL 1 MG/ML 2ML VIAL ONE (10:43)
[2023-09-17] MEDS: ASPIRIN 81 MG CHEW ONE (10:44)
[2023-09-17] MEDS: diphenhydrAMINE 50 MG/ML VIAL ONE (10:44)
--- NOTE | 2023-09-17 10:45 | Cardiac Catheterization ---
Cardiac Cath Procedure Full Procedure Date September 17, 2023 Pre-Procedure Diagnosis Pre-Procedure Diagnosis: Angina and Positive Stress Test AUC Score AUC Score: 8 Post-Procedure Diagnosis Post-Procedure Diagnosis: Severe CAD and Normal Intracardiac Pressures Procedure(s) Performed Procedure(s) Performed: Coronary Angiography and Left Heart Cath Biochemistry Technician Dinesh Scherer DO Voice Network Administrator(s) Poultry Buyer CREPING MACHINE OPERATOR Estimated Blood Loss Estimated Blood Loss: 5cc Medication(s) Medication(s): Fentanyl, Heparin, Lidocaine 1%, Nicardipine, Nitroglycerin and Versed Summary of Findings 99% proximal, 60% mid ramus 50% mid LAD Small, nondominant RCA with severe diffuse disease. Hemodynamics Rest Ao:: 149/79/106 Final Ao: 155/72/99 LV: 1554/-5/2 Recommendations Recommendations: PCI without planned CABG (Hemodynamic assessment of mid LAD, PCI of ramus intermedius) Radiation Exposure (mGy) 728 Contrast (mls) 50 Fluids (cc crystalloids) Fluids (cc crystalloids): 80 Nss Drains Drains: NB/A Anesthesia Moderate sedation. Start 1012. End 1030. Sedation monitor: Harley DERAS Procedural Complication(s) None I attest to the content of the Intraoperative Record and any orders documented therein. Any exceptions are noted below. [facility] Data: Manager Services Cardiac Status Clinical evaluation leading to the procedure 78-year male with exertional anginal symptoms. Exercise stress echo performed 09/16/2023 demonstrating lateral, and apical anterolateral ischemia. CAD Presenation: Positive Stress Test and Unstable angina Anginal Classification: CCS II Heart Failure: No Coronary Anatomy Dominant: Left Left Main (% Stenosis): Normal LAD (% Stenosis): Proximal (20%), Mid (50%) and Distal (20%) D1 (% Stenosis): Proximal (20%, small vessel) Circumflex (% Stenosis): Mid (Luminal irregularities, 10%.) OM1 (% Stenosis): Normal L PL1 (% Stenosis): Proximal (30%) L PDA (% Stenosis): Ostial (20% taper) and Mid (Bifurcates in midsegment without significant obstructive disease) RCA (% Stenosis): Proximal (Long area of severe diffuse disease extending from proximal proximal through the mid segment, ranging from 50-70%.) Ramus (% Stenosis): Proximal (99%) and Mid (60%) Diagnostic Physicians Name: Dinesh Scherer, DO Closure Device Percutaneous Entry Location: Radial Closure Device: Radial Band Recommendations: PCI without planned CABG (Hemodynamic assessment of mid LAD, PCI of ramus intermedius) Intraprocedure Events Significant Disection: No Perforation: No
[2023-09-17] MEDS: fentaNYL citrate PF 100 MCG/2 ML VIAL ONE (11:49)
[2023-09-17] MEDS: OPTIRAY 350 ONE (11:49)
[2023-09-17] MEDS: HEPARIN (PORCINE) 1000 UNIT/ML 10 ML (CATH LAB USE ONLY) ONE ×2 (11:54→11:55)
--- NOTE | 2023-09-17 12:01 | Post Anesthesia Assessment ---
Date of Service September 17, 2023 Post Sedation Assessment Vital Signs Temp Pulse Pulse Pulse Resp BP Pulse Ox 09/17/23 09:17 54 L 16 182/87 H 98 09/17/23 07:55 09/17/23 07:27 36.6 C 55 L 20 152/81 H 95 09/17/23 07:00 45 L 09/17/23 03:57 36.5 C 54 L 18 144/81 H 97 09/16/23 23:14 44 L 09/16/23 22:14 36.4 C 45 L 14 156/87 H 96 09/16/23 19:27 36.8 C 16 146/85 H 96 09/16/23 17:42 64 09/16/23 14:55 36.9 C 55 L 20 158/96 H 99 09/16/23 12:34 52 L O2 Del Method 09/17/23 09:17 Room Air 09/17/23 07:55 Room Air 09/17/23 07:27 Room Air 09/17/23 07:00 09/17/23 03:57 Room Air 09/16/23 23:14 09/16/23 22:14 Room Air 09/16/23 19:27 Room Air 09/16/23 17:42 09/16/23 14:55 Room Air 09/16/23 12:34 Recovery Score Activity: Moves 4 extremities Respiration: Deep Breath/Cough Circulation: +/-20% PreAnes Value Consciousness: Arouseable (by name) Oxygen Saturation: > 92% On Room Air Discharge Sedation Level of Care: Fast Track Phase II Post Sedation Plan On clinical assessment, the patient appears to have tolerated the sedation without complications. Patient is recovering as anticipated. Patient will continue to be monitored by nursing and may be discharged when sedation discharge criteria are met per below protocol. Upon Completions of procedure up to 15 minutes continue every 5 minute vital signs and the P.A.R. score; then discharge to a Phase I or Fast Track to Phase II per the following guidelines: * Discharge Patient to appropriate Phase II area if PAR is 8 or greater or return to pre- procedure baseline. The post - procedure orders will be as directed. * If PAR score is less than 8 or not return to pre-procedure baseline then patient will follow Phase I monitoring till PAR is reached for Phase II. The Phase I may be done in procedure room or may call to secure a Phase I area. * If naloxone or flumazenil are used for reversal, hold in Phase I for continued monitoring from when last reversal dose was given for a minimum of 60 minutes or longer pending the nurse and/or physician discretion of patient condition before discharge to Phase II. Please call the Sedation Physician to re-evaluate and complete post-note for discharge to Phase II area. Do NOT discharge from procedure sedation or Phase 1 until post- sedation evaluation note is complete by procedure /sedation MD Sedation Discharge Instructions to be given to the patient at discharge to home.
[2023-09-17] MEDS: TICAGRELOR 90 MG TAB ONE (12:48)
[2023-09-17] MEDS: hydroCHLOROthiazide 25 MG TAB PO STA (13:27)
[2023-09-17] MEDS ORDERED: hydrALAZINE HCL 20 MG/ML VIAL IV PRN (13:34)
--- NOTE | 2023-09-17 14:16 | Hospitalist Progress Note ---
Date of Service September 17, 2023 Assessment & Plan (1) Abnormal stress echocardiogram: (2) NSTEMI (non-ST elevated myocardial infarction): (3) PAF (paroxysmal atrial fibrillation): (4) Family history of premature CAD: (5) ANA on CPAP: (6) HTN (hypertension): Plan 78 year old Male w/ hx of PAF anticoagulated on eliquis and hx of ablation for previous atrial flutter, aortic root dilatation, HTN, HLD, atrial septal aneurysm, tachybradycardia syndrome, ANA, prediabetes and BPH who presented to ED 09/15 at the referral of cardiology for exertional chest pain. He is being managed for the following: Abnormal stress echocardiogram NSTEMI Patient was with exertional chest pain for about 3 months, and was sent from cardiology office after positive stress test. Troponin elevated at presentation, EKG with TWI notable in V1, aVR, III at presentation. Status post cardiac cath 09/16, patient with diffuse CAD, PCI of ramus intermedius. Cardiology on board, patient on Brilinta and plan to continue with Eliquis. Continue telemetry monitoring. Discussed with cardiology, plan to observe him overnight, possible DC tomorrow. Other chronic medical conditions: Continue with/resume home meds as and when able PAF, hx of atrial flutter s/p ablation Tachycardia-bradycardia syndrome follows Dr. Giles, planning for OP PPM in future continue metoprolol as able, c/w eliquis. Pre DM: last a1c 6.1. encourage diet/lifestyle modifications ANA: CPAP at HS BPH: s/p TURP DVT ppx: Eliquis FULL CODE PCP: Dr. Stevens Dispo: Likely DC butch. Admission and Anticipated Discharge Date Admission Date: September 16, 2023 Subjective Patient was seen and examined at bedside. Patient was lying in bed, on room air, NAD, not in any acute distress. Patient's at bedside. Patient declined any further chest pain while in the hospital, he reported chest pain with activity prior to presentation. Patient is status post heart cath today. Denies any febrile illness or flulike illness in the recent past. Denies any headache or dizziness or chest pain. Physical Exam Physical Exam: GENERAL APPEARANCE: AxOx4, generally well-appearing M, no acute distress. HEENT: NC, AT. MMM. EOMI, clear conjunctiva, oropharynx clear. NECK: Supple without lymphadenopathy. No stiffness or restricted ROM. HEART: Normal rate and regular rhythm, normal S1/S1, no m/r/g LUNGS: CTAB, moving air well. No crackles or wheezes are heard. ABDOMEN: Soft, nontender, nondistended with good bowel sounds heard. BACK: No CVAT, no obvious deformity. EXTREMITIES: Without cyanosis, clubbing or edema. NEUROLOGICAL: Grossly nonfocal. Alert and oriented, moving all 4 extremities. CN not formally tested but appear grossly intact. Skin: Warm and dry without any rash. Results & Data Results & Data Vital Signs (Past 12 Hours) Vital Signs Temp Pulse Pulse Pulse Resp BP Pulse Ox 09/17/23 13:47 66 18 133/86 99 09/17/23 13:07 55 L 19 178/100 H 99 09/17/23 12:47 63 20 164/95 H 97 09/17/23 12:32 55 L 19 162/81 H 96 09/17/23 12:26 55 L 20 140/88 96 09/17/23 12:15 36.8 C 58 L 18 163/88 H 96 09/17/23 12:00 36.8 C 61 18 169/92 H 95 09/17/23 09:17 54 L 16 182/87 H 98 09/17/23 07:55 09/17/23 07:27 36.6 C 55 L 20 152/81 H 95 09/17/23 07:00 45 L 09/17/23 03:57 36.5 C 54 L 18 144/81 H 97 O2 Del Method 09/17/23 13:47 Room Air 09/17/23 13:07 Room Air 09/17/23 12:47 Room Air 09/17/23 12:32 Room Air 09/17/23 12:26 Room Air 09/17/23 12:15 Room Air 09/17/23 12:00 Room Air 09/17/23 09:17 Room Air 09/17/23 07:55 Room Air 09/17/23 07:27 Room Air 09/17/23 07:00 09/17/23 03:57 Room Air
--- NOTE | 2023-09-17 14:18 | Cardiac Catheterization ---
[facility] Data: Office Manager Cardiac Status Clinical evaluation leading to the procedure CAD Presenation: Positive Stress Test and Stable angina Anginal Classification: CCS III Heart Failure: No Cardiogenic Shock within 24 Hours: No Cardiac Arrest within 24 Hours: No Stress Studies Past 6 Months: Yes (Positive. See Dr. Scherer note for details) Diagnostic Physicians Name: Gera Wood MD, PhD Closure Device Percutaneous Entry Location: Radial Closure Device: Radial Band Recommendations: Medical Therapy and/or Counseling and PCI without planned CABG PCI Indication: + Stress Test and Stable Angina Lesion Segment Name: Proximal ramus Culprit Artery: Yes Stenosis Prior to Rx (%): 99% Chronic Total Occlusion: No Pre-Procedure PRANEETH Flow: 2 Previously Treated Lesion: No Lesion Complexity: Non-High/Non-C Lesion Length (mm): 8 mm Thrombus Present: No Bifurcation Lesion: No Guidewire Across Lesion: Yes Intraprocedure Events Significant Disection: No Perforation: No Cardiac Cath Procedure Full Procedure Date September 17, 2023 Pre-Procedure Diagnosis Pre-Procedure Diagnosis: Angina and Positive Stress Test AUC Score AUC Score: 07 Post-Procedure Diagnosis Post-Procedure Diagnosis: Severe CAD, Successful PCI and Normal Intracardiac Pressures Procedure(s) Performed Procedure(s) Performed: Drug Eluting Stent and Fractional Flow [place] Intake Coordinator Gera Wood MD, PhD Wildlife Removal Specialist(s) Assistant Wrestling Coach SEWAGE RETICULATION DRAFTING OFFICER Estimated Blood Loss Estimated Blood Loss: 5cc Medication(s) Medication(s): Fentanyl, Heparin, Lidocaine 1%, Nicardipine, Nitroglycerin and Versed Summary of Findings Brief description: Patient was on the table already shaved and prepped. A 6 [place] radial glide sheath in place. Initial sedation by Dr. Scherer. I was asked to perform IFR analysis of the LAD and PCI of the LAD and ramus if appropriate. ACT was checked. IV heparin was provided. ACT was intermittently checked throughout the case and additional heparin was provided as needed to maintain therapeutic anticoagulation. We proceeded first with IFR analysis of the LAD. A 6 [place] EBU 3.0 guide catheter was used to engage the left main coronary. Through this, the Omni Doppler wave wire was advanced and positioned with its transducer just distal to the guide catheter tip. System was flushed with normal saline and then the pressures were normalized. The wire was then advanced beyond the lesion in the LAD. iFR was sampled 3 times and recorded. The guidewire was then removed. We next turned our attention to PCI of the anthony s. BMW reversal guidewire was advanced but could not pass the lesion in the ramus. It was therefore exchanged for a run-through coronary guide catheter. This was able to be advanced beyond the tight proximal lesion and positioned distally in the ramus. We attempted to predilate the proximal lesion with a 2.5 x 12 mm trek balloon but we were unsuccessful in crossing the very severely stenosed lesion. It was therefore removed and exchanged for a 1.5 x 10 mm sprinter balloon. Predilatation across the proximal lesion with the sprinter balloon at 6 fer. A second inflation was performed up to 15 fer. The balloon was then removed. Additional predilatation using a 2.5 x 12 mm trek balloon at 12 fer across the proximal lesion. This did require use of a guide liner. The balloon was then removed. We tried to deliver a 2.5 x 15 mm [place] drug-eluting stent across the distal lesion through the guide liner but we could not make the bend with this catheter. There is significant bend and some calcium making it very stiff. We next tried an [place] 2.5 x 12 mm drug-eluting stent but again we could not make the bend. Finally, we tried a 2.5 x 8 mm [place]aston drug-eluting stent but again could not deliver anything distally. The stents were all removed. Decision was made to stent the proximal lesion hoping that this would help us deliver stents distally. Proximal lesion was stented using an [place] 2.5 x 12 mm drug-eluting stent deployed at 16 fer. The stent balloon was then removed. We attempted to advance a 2.5 x 8 mm trek balloon to the distal vessel but could not get around the bend which remained immobile. We next tried to post dilate the stented segment further using a 2.5 x 12 mm sprinter noncompliant balloon at 20 fer within the stented segment. After postdilatation the balloon was removed. We were then able to it [place] the guide liner further in the vessel through most of the stent. Then, we attempted to deliver a 2.5 x 8 mm trek balloon and could get it long term through the band but not all the way through the bend in the vessel. Despite multiple attempts and changing angles of the guide catheter decision was made to abandon the EBU 3.0 guide catheter and give a final attempt using a EBU 3.5 guide catheter. Therefore, the guidewire, guide liner, balloon, were all removed followed by exchange of the 6 [place] EBU 3.0 guide catheter for a 6 [place] EBU 3.5 guide catheter. Run-through guidewire wire was reinserted and advanced distally in the ramus. Guide liner was advanced over the wire to the level of the mid stent. We attempted to advance the 2.5 x 8 mm trek balloon but we were again unsuccessful. At this point we decided to abandon further attempts at PCI to the distal lesion given risk for complication. Guidewire, guide liner, and guide catheter were all removed. Radial artery sheath was removed. Hemostasis was obtained using the radial band. Patient was hemodynamically stable and asymptomatic. He was returned to the recovery area. This ended the case. Interventional findings: iFR of LAD findings-0.94, 0.95, 0.95. Therefore this lesion is considered not hemodynamically significant. PCI of ramus-the proximal 99% stenosis is reduced to 0% stenosis post PCI. There is a residual 60 to 70% stenosis in the mid vessel. No evidence of dissection or perforation post PCI PRANEETH-3 flow post PCI Summary: 1. Successful PCI of the proximal ramus subtotal occlusion with implantation of a single drug-eluting stent. 2. IFR analysis of the LAD demonstrates that the angiographically borderline lesion is not hemodynamically significant at this time. 3. Patient will be on dual antiplatelet therapy with Eliquis and Brilinta for 1 to 2 years. 4. Guideline directed medical therapy for secondary prevention of coronary disease per primary paradi tender. 5. Consider long-acting nitrate for anginal relief given angiographically borderline stenosis remaining in both the LAD and the mid ramus. Hemodynamics Rest Ao:: 155/72 mmHg Final Ao: 164/83 mmHg LV: Not performed Recommendations Recommendations: Medical Therapy and/or Counseling and PCI without planned CABG Radiation Exposure (mGy) 4058 mGy, fluoroscopy time 26.4 min combined for DX and PCI Contrast (mls) 210 mL total combined Drains Drains: NB/A Anesthesia 2 mg Versed, 75 mcg fentanyl, 25 mg Benadryl IV. Start 1030, End 1151 Procedural Complication(s) None Disposition Office Manager Holding/Recovery I attest to the content of the Intraoperative Record and any orders documented therein. Any exceptions are noted below. [facility] Card Cath Procedure Codes Cardiac Catheterization Procedure 1: Cardiovascular Cath Procedures: 82468 (Doppler) Pressure Wire Moderate Sedation Procedure 1: Sedation/Anesthesia: 01298 Mod Sedation by a different physician ;Init15 Min Child Age 5&Up (Additional 15 min, different physician. Start 1030) Procedure 2: Sedation/Anesthesia: 16568 Mod Sedation by a different physician;Ea Additional 15 Minutes (Additional 66 min, different physician. End time 1151) Stenting Procedure 1: Cardiovascular Stent Procedures: 05145 Perc transcatheter placement of intracoronary stent(s), with ang ([place]) PG Care Time/CCT Total # of Minutes Spent Total Time Spent with Patient: Total time spent is greater than 50% in coordination of care (as documented) at patient's floor/unit and/or counseling patient:
[2023-09-17] MEDS: APIXABAN 5 MG TABLET PO SCH (19:30)
[2023-09-17] MEDS: METOPROLOL TARTRATE 25 MG TAB PO ONE (19:30)
[2023-09-17] MEDS: TICAGRELOR 90 MG TAB PO SCH (23:30)
[2023-09-18 07:20] LABS: Hematocrit (blood only) 43.6 % (42.0-52.0); Hemoglobin 15.2 g/dl (14.0-18.0); Mean Corpuscular Hemoglobin 30.8 pg (25.0-34.0); Mean Corpuscular Hgb Conc 34.9 g/dL (32.0-36.0); Mean Corpuscular Volume 88.3 fL (80.0-100.0); Platelet Count 184 K/uL (130-400); RDW Coefficient of Variation 12.3 % (11.5-14.5); RDW Standard Deviation 39.6 fL (36.4-46.3); Red Blood Count 4.94 M/uL (4.70-6.10)
[2023-09-18 07:37] LABS: BUN Creatinine Ratio 21.6 (10-20); Calcium 9.6 mg/dl (8.6-10.3); Est GFR (African American) 86.9 ml/min; Potassium 3.6 mmol/L (3.5-5.1)
[2023-09-18] MEDS: METOPROLOL TARTRATE 25 MG TAB PO SCH (07:54)
[2023-09-18] MEDS: POTASSIUM CHLORIDE CRTAB 20 MEQ TABCR PO STA (08:25)
[2023-09-18] MEDS: MULTIVITAMIN TAB PO SCH (08:54)
[2023-09-18] MEDS: lisinopril 40 MG TAB PO SCH (08:54)
[2023-09-18] MEDS: METOPROLOL SUCC 25MG EXT REL TAB PO SCH (11:08)
--- NOTE | 2023-09-18 11:54 | Electrocardiogram Report ---
Test Reason : Blood Pressure : / mmHG Vent. Rate : 048 BPM Atrial Rate : 048 BPM P-R Int : 192 ms QRS Dur : 114 ms QT Int : 492 ms P-R-T Axes : 070 -37 041 degrees QTc Int : 439 ms Sinus bradycardia Left axis deviation Minimal voltage criteria for LVH, may be normal variant Abnormal ECG When compared with ECG of 17-SEP-2023 06:16, No significant change was found Confirmed by Kiran Phan ([id number]) on 09/18/2023 11:54:16 AM Referred By: REFERRED SELF Confirmed By:Brandt Phan
--- NOTE | 2023-09-18 12:07 | Electrocardiogram Report ---
Test Reason : Blood Pressure : / mmHG Vent. Rate : 064 BPM Atrial Rate : 064 BPM P-R Int : 176 ms QRS Dur : 110 ms QT Int : 452 ms P-R-T Axes : 072 -43 051 degrees QTc Int : 466 ms Sinus rhythm Possible Left atrial enlargement Left axis deviation Incomplete right bundle branch block Abnormal ECG When compared with ECG of 17-SEP-2023 12:07, (unconfirmed) Electronic ventricular pacemaker has replaced Sinus rhythm Reconfirmed by Kiran Phan ([id number]) on 09/18/2023 12:07:54 PM Referred By: REFERRED SELF Confirmed By:Brandt Phan
--- NOTE | 2023-09-18 12:54 | Discharge Summary ---
Date of Service September 18, 2023 Admission HPI Per Admitting Provider This is a 78 year old Male hx of PAF anticoagulated on eliquis and hx of ablation for previous atrial flutter, aortic root dilatation, HTN, HLD, atrial septal aneurysm, tachybradycardia syndrome, ANA, prediabetes and BPH who presents to ED at the referral of cardiology. He has been experiencing chest pain for the past 3 months off and on. Chest pain typically develops when he is exerting himself. His sx resolve with rest. He describes it like he is having acid reflux when he is exercising. Currently sitting in the bed he is chest pain free. He was seen in the cardiology clinic today and underwent a stress test. His stress test was positive for inducible ischemia and therefore he was referred here for cardiac catheterization. He has a strong family history of CAD with his father and brother. Outpatient cardiology note was reviewed. During exercise stress test he developed typical throat discomfort with diffuse ST segment depressions and stress echocardiogram indicated dilatation of the left ventricle post exercise and diffuse hypokinesis. He was noted to have prolonged recovery of his ST segments and his chest pain continued requiring sublingual nitro which resolved his discomfort completely. He denies any recent illness, fever, chills, sweats, lightheadedness, dizziness, chest pain, shortness breath, nausea, vomiting, abdominal pain, changes bowel or urinary habits. He did take morning medications including his Eliquis. Admission Exam Per Admitting Provider GENERAL APPEARANCE: AxOx4, generally well-appearing M, no acute distress. HEENT: NC, AT. MMM. EOMI, clear conjunctiva, oropharynx clear. NECK: Supple without lymphadenopathy. No stiffness or restricted ROM. HEART: Normal rate and regular rhythm, normal S1/S1, no m/r/g LUNGS: CTAB, moving air well. No crackles or wheezes are heard. ABDOMEN: Soft, nontender, nondistended with good bowel sounds heard. BACK: No CVAT, no obvious deformity. EXTREMITIES: Without cyanosis, clubbing or edema. NEUROLOGICAL: Grossly nonfocal. Alert and oriented, moving all 4 extremities. CN not formally tested but appear grossly intact. Skin: Warm and dry without any rash. Principal Diagnosis NSTEMI Discharge Exam GENERAL APPEARANCE: AxOx4, generally well-appearing M, no acute distress. HEENT: NC, AT. MMM. EOMI, clear conjunctiva, oropharynx clear. NECK: Supple without lymphadenopathy. No stiffness or restricted ROM. HEART: Normal rate and regular rhythm, normal S1/S1, no m/r/g LUNGS: CTAB, moving air well. No crackles or wheezes are heard. ABDOMEN: Soft, nontender, nondistended with good bowel sounds heard. BACK: No CVAT, no obvious deformity. EXTREMITIES: Without cyanosis, clubbing or edema. NEUROLOGICAL: Grossly nonfocal. Alert and oriented, moving all 4 extremities. CN not formally tested but appear grossly intact. Skin: Warm and dry without any rash. Discharge Data Allergies Allergy/AdvReac Type Severity Reaction Status Date / Time No Known Allergies Allergy Verified 01/15/23 10:19 Consultations 09/16/23 13:24 ED Decision to Admit Stat 09/16/23 13:25 Consult Cardiology Routine Procedures Performed Operation Date: 09/17/23 09:30 Actual Procedures p Cath, Left with Cors and Vent - Dinesh O Skinnypinannemarie, DO s Drug Eluting Stent SGl Vessel - Gera Wood MD, PhD s Fraction Flow Flanagan SGL Ves - Gera Wood MD, PhD Ordered Studies 09/17/23 07:12 CL Cath Imgs for PACS use only Routine Hospital Course (1) Abnormal stress echocardiogram: (2) NSTEMI (non-ST elevated myocardial infarction): (3) PAF (paroxysmal atrial fibrillation): (4) Family history of premature CAD: (5) ANA on CPAP: (6) HTN (hypertension): Plan 78 year old Male w/ hx of PAF anticoagulated on eliquis and hx of ablation for previous atrial flutter, aortic root dilatation, HTN, HLD, atrial septal aneurysm, tachybradycardia syndrome, ANA, prediabetes and BPH who presented to ED 09/15 at the referral of cardiology for exertional chest pain. He was managed for the following: Abnormal stress echocardiogram NSTEMI Patient was with exertional chest pain for about 3 months, and was sent from cardiology office after positive stress test. Troponin elevated at presentation, EKG with TWI notable in V1, aVR, III at presentation. Status post cardiac cath 09/16, patient with diffuse CAD, PCI of ramus intermedius. Cardiology evaled, patient on Brilinta and plan to continue with Eliquis. Patient with no chest pain and is hemodynamically stable. Patient to follow-up with cardiology upon discharge. Other chronic medical conditions: Continue with/resume home meds as and when able PAF, hx of atrial flutter s/p ablation Tachycardia-bradycardia syndrome follows Dr. Giles, planning for OP PPM in future continue metoprolol as able, c/w eliquis. Pre DM: last a1c 6.1. encourage diet/lifestyle modifications ANA: CPAP at HS BPH: s/p TURP DVT ppx: Eliquis FULL CODE PCP: Dr. Stevens Patient is being discharged to home with following instruction at the point of discharge: Follow-up with your primary care physician within a week time and likely you will need labs CBC/CMP/magnesium/phosphorus. Follow-up with cardiology in 2 to 4 weeks time upon discharge. Establish with cardiac rehab, coordinate with the PCP office or cardiology office to set up cardiac rehab. You will be discharged on Brilinta. Continue your prior to arrival dose of Eliquis. Take your medications as prescribed. Please make sure that you are able to get your medications today by calling your pharmacy before you leave the hospital so that your treatment continuity is not broken. Home Health Attestation I certify that this patient is under my care and that I, or a physicians assistant director of residence life working with me, had a face to-face encounter that meets the home health [id number] encounter requirements with this patient. The encounter with the patient was in whole, or in part, for the following medical condition, which is the primary reason for home health care (list medical condition): I certify that, based on my findings, the following services are medically necessary home health services: My clinical findings support the need for the above services because: Further, I certify that my clinical findings support that this patient is homebound (i.e. absences from home require considerable and taxing effort and are for medical reasons or mormonism services or infrequently or of short duration when for other reasons) because: Certification for Home Health Services: Based on the above findings, I certify that this patient is confined to the home and needs intermittent long term care, physical therapy and/or speech therapy or continues to need occupational therapy. The patient is under my care, and I have initiated the establishment of the plan of care. This patient will be followed by a physician who will periodically review the plan of care. Total Time Total Time Spent Total Time Spent (In Minutes): 45 Discharge Plan Discharge Items Patient Disposition: Home - Self-Care Reason For Visit: FAILED OUTPATIENT STRESS TEST Discharge Diagnosis: NSTEMI Activity: As commented below Activity Comment: light activity until cardio eval Non-emergency contact: Primary Care Provider Call non-emergency contact if: you have any medication questions, your symptoms worsen and your temperature is above 101.5 Follow-up/Referrals: Dinesh Scherer DO [Pocket Cutter] - (The Cardiology office will contact you for a follow up appointment.) Aaron Stevens MD [Primary Care Provider] - (Date & Time 09/22/2023 11:00 AM Provider Aaron Stevens MD [facility] ) Diet: Heart Healthy Sweta Attending Provider Instructions: Follow-up with your primary care physician within a week time and likely you will need labs CBC/CMP/magnesium/phosphorus. Follow-up with cardiology in 2 to 4 weeks time upon discharge. Establish with cardiac rehab, coordinate with the PCP office or cardiology office to set up cardiac rehab. You will be discharged on Brilinta. Continue your prior to arrival dose of Eliquis. Take your medications as prescribed. Please make sure that you are able to get your medications today by calling your pharmacy before you leave the hospital so that your treatment continuity is not broken. Sweta Buckle Attaching Machine Operator Provider Instructions: Home Care: * Take your medications exactly as directed. Don't skip doses. * Remember that recovery after a heart attack takes time. Plan to rest for at lease 4-8 weeks while you recover. Then return to normal activity when your doctor says it's okay. * Ask your doctor about joining a heart rehabilitation program. * Tell your doctor if you are feeling depressed. Feelings of sadness are common after a heart attack, but it is important that you speak to someone if you are feeling overwhelmed by these feelings. * If you are having chest pain, call 911 for an ambulance. Do NOT drive yourself to the hospital. * Ask your family members to learn CPR. * Learn to take your own blood pressure and pulse. Keep a record of your results. Ask your doctor when you should seek emergency medical attention. He or she will tell you which blood pressure reading is dangerous. Lifestyle Changes: * Maintain a healthy weight. Get help to lose any extra pounds. * Cut back on salt. * Limit canned, dried, packaged, and fast foods. * Don't add salt to your food. * Season foods with herbs instead of salt when you cook. * Break the smoking habit. Enroll in a stop-smoking program to improve your c hances of success. * Limit fatty foods. * Ask your doctor about having your lipid levels checked regularly. * Build up your activity according to your doctor's recommendation. * Ask your doctor when it's okay to resume sexual activity. * Tell your doctor about any erectile dysfunction (ED) medication you are taking. Some ED medications are not safe if you take certain heart medications. * Try to manage stress. Follow Up: It is important for you to keep your follow up appointments with your medical provider. Pending Studies at Discharge: No Stand-Alone Forms: My [facility], Smoking Cessation Medications and DC Order Prescriptions: New Brilinta 90 mg Tablet 90 mg PO BID Qty: 60 0RF Continued lisinopril 40 mg tablet 40 mg PO DAILY pravastatin 40 mg tablet 40 mg PO HS multivitamin Tablet 1 tab PO QAM Eliquis 5 mg Tablet 5 mg PO BID Qty: 60 1RF metoprolol succinate 25 mg tablet extended release 24 hr 25 mg PO QAM hydrochlorothiazide 25 mg tablet 25 mg PO DAILY Discharge Orders: Discharge Order (Routine); Ordered 09/18/23 Ordered By: Joceline Foreman Admission Data Admit Date/Time: 09/16/23 13:43 Attending Provider: Joceline Foreman Admit Provider: Kya Almonte Primary Care Provider: Aaron Stevens Other Providers: Kya Almonte; Dinesh Scherer
--- NOTE | 2023-09-18 13:13 | Cardiology Progress Note ---
Date of Service September 18, 2023 Assessment & Plan (1) Stenosis of ramus intermedius coronary artery: (2) Stented coronary artery: (3) PAF (paroxysmal atrial fibrillation): Plan 78-year-old patient with exertional angina and abnormal exercise stress echo demonstrating evidence of mid and apical lateral, and apical anterolateral hypokinesis. Percutaneous intervention of the ramus intermedius performed yesterday. Residual 60% mid ramus stenosis. Manager Department unable to in tervene on 60% stenosis due to tortuosity of vessel. Medical management recommended, however, after discussion with interventionalist PCI of the mid ramus may be possible after the proximal stent has endothelialized (approximately 6 months post-insertion) if patient experiences recurrent anginal symptoms. Appropriate use of sublingual nitroglycerin reviewed. Reviewed importance of continuing Brilinta uninterrupted for minimum of 6 months post percutaneous intervention. He will be discharged on a combination of Brilinta plus Eliquis. Other medications including metoprolol succinate pravast atin, hydrochlorothiazide, and lisinopril will be continued as previously ordered. Outpatient cardiology follow-up in 2 to 4 weeks. I spent a total of 40 minutes on the date of service in preparation, delivery, and documentation of the care provided to this patient, excluding any time spent in the performance of separately billed services. Postcardiac catheterization activity restrictions listed below: ACTIVITY RECOMMENDATIONS: It is common to feel weak and fatigue for a few days. * Do not drive or operate any motorized equipment for the next three days. * Limit stair usage (2 or 3 trips a day only) for the next three days. * Do not lift anything heavier than 10 pounds for the next three days. * Do not engage in vigorous exercise or any sports for the next five days. * You may shower the day after your procedure, but do not immerse the area for three days. Cleanse the site gently with soap and water. SPECIAL CARE INSTRUCTIONS: * You may replace the pressure dressing or band-aid the morning after the procedure. * After your procedure, it is normal to have a small bruise or small lump at the site. Examine your site daily for any change in the bruise or lump, redness, swelling, drainage or numbness. Notify your doctor if any change. BLEEDING: * If there is a small amount of bleeding at the site, lie down and apply firm pressure with a clean cloth for ten minutes. When the bleeding stops, lie quietly keeping the procedure limb straight for six hours. Notify your doctor as soon as possible. * If the bleeding does not stop after ten minutes or if there is a large amount of bleeding or spurting, call 911 immediately. Continue to lie down and hold firm pressure until help arrives. SKIN IRRITATION: * You may experience some redness and/or swelling in the area where radiation was administered. If any skin irritation occurs, please contact your family physician. FOLLOW UP VISIT: Keep any scheduled doctor appointments. Admission and Anticipated Discharge Date Admission Date: September 16, 2023 Subjective Patient seen and examined at the bedside. Brief runs of rapid atrial fibrillation recorded yesterday at approximately 6 PM. Patient noted minimal palpitations. No recurrent tachycardia overnight with resumption of beta- vickey therapy. Feeling well this morning. Denies chest pain or shortness of breath. Tolerating current medications. Review of Systems Review of Systems: All systems reviewed & are unremarkable except as noted in Subjective Physical Exam Constitutional: well nourished; no acute distress Respiratory: normal respiratory effort; no respiratory distress, no labored breathing and no retractions Auscultation: no crackles, no rales, no rhonchi and no wheezes Cardiovascular: Rate/Rhythm: regular rate and regular rhythm Heart Sounds: normal S1 and normal S2; no murmur Vessels: femoral pulses present and radial pulses present; no JVD Extremities: no edema Gastrointestinal (Abdomen): Inspection/Auscultation: abdomen normal to inspection and normal bowel sounds; abdomen not distended Percussion/Palpation: abdomen soft; abdomen nontender, no guarding and abdomen not rigid Neurologic: CN's II-XI intact bilaterally and moves all extremities; no focal motor deficits Results & Data Vital Signs (Past 12 Hours) Vital Signs Temp Pulse Pulse Resp BP Pulse Ox O2 Del Method 09/18/23 11:06 60 20 128/83 96 Room Air 09/18/23 08:01 36.7 C 65 18 156/93 H 98 Room Air 09/18/23 07:34 Room Air 09/18/23 07:00 53 L 09/18/23 03:36 36.9 C 55 L 18 148/73 H 95 Room Air Laboratory Results CBC 09/18/23 Range/Units 06:49 WBC 8.40 (4.8-10.8) K/ul RBC 4.94 (4.70-6.10) M/uL Hgb 15.2 (14.0-18.0) g/dl Hct 43.6 (42.0-52.0) % Plt Count 184 (130-400) K/uL Comprehensive Metabolic Panel 09/18/23 Range/Units 06:49 Sodium 138 (136-145) mmol/L Potassium 3.6 (3.5-5.1) mmol/L Chloride 103 (98-107) mmol/L Carbon Dioxide 28 (21-32) mmol/L BUN 21 (6-23) mg/dl Creatinine 0.97 (0.6-1.4) mg/dl Glucose 118 H (70-99(Fasting)) mg/dl Calcium 9.6 (8.6-10.3) mg/dl Intake and Output 09/17/23 09/18/23 09/18/23 22:59 06:59 14:59 Intake Total 300 / 300 0 / 300 Balance 300 / 300 0 / 300 Intake: Oral 300 / 300 0 / 300 Other: # Unmeasured Voids 1 0 Weight 90.7 kg Weight Measurement Method Built in [facility]
== END 2023-09-18 14:13 | disposition home or self-care (01) | DRG 322 ==
LOC: ED 11:50 → 2E 13:43 → SUATTDRO 13:43 → 2E 14:31

== ENCOUNTER 2023-12-19 11:35 | Inpatient (IN) ==
--- OUTSIDE RECORDS SUMMARY | 2023-12-19 11:41 | External Medical Summary | Summary of Care ---
Author Name Unknown Organization [facility] Address [address] [place] [address] Phone [phone] Care Team Providers Care Solar Field Service Technician Name Role Phone Aaron Stevens MD Primary Care Provider [phone]- [phone] Reason for Referral * Evaluate & Treat - Unlimited Visits (Within 10 days (routine)) - Authorized Specialty Diagnoses / Procedures Referred By Rocio malone Referred To Contact Neurology Diagnoses Subjective vision disturbance Robson Suarez MD [address] [place] [id number] Referral ID Status Reason Start Date Expiration Date Visits Requested Visits Authorized [id number] Authorized Specialty Services Required 12/17/2023 [id number] Question Answer Referral Priority Within 10 days (routine) Where should this appointment be scheduled? [facility] Is this referral being placed for insurance purposes ONLY No, patient needs appointment [facility] NEUROLOGY REFERRAL QUESTIONS Headache Has the patient tried 1 abortive and 1 preventative medication? No Comments Headaches for months with vision problems - but normal eye exam aside from some small dellen Reason for Visit * Reason Comments Walk In * Evaluate & Treat - Unlimited Visits (Within 10 days (routine)) - Authorized Specialty Diagnoses / Procedures Referred By Rocio malone Referred To Contact Ophthalmology Diagnoses Change in vision Justino Mcneil MD [address] [place] [id number] Referral ID Status Reason Start Date Expiration Date Visits Requested Visits Authorized [id number] Authorized Specialty Services Required 12/15/2023 [id number] Encounter Details Date Type Department Care Team (Late st Contact Info) Description 12/17/2023 2:00 PM EDT Office Visit [facility] [address] [place] [address] Robson Suarez MD [address] [place] [address] Subjective vision disturbance*; Visual distortions of shape and size Allergies No known active allergiesdocumented as of this encounter (statuses as of 12/18/2023) Medications Medication Sig Dispensed Refills Start Date End Date Status Metamucil Smooth Texture 58.6 % Oral Powder (Psyllium) Take by mouth 3 times a day. One scoop in 8 ounces of water, up to three times a day. 05/11/2020 Active One-A-Day Adult VitaCraves+DHA Oral Tablet Chewable Take by mouth. Activ e hydroCHLOROthiazide 25 MG Oral Tablet (Hydrodiuril)Indica tions:PAF (paroxysmal atrial fibrillation) (HCC),HTN, goal below 140/90 TAKE 1 TABLET BY MOUTH EVERY MORNING 90 Tablet 3 03/20/2023 Active Pravastatin Sodium 40 MG Oral Tablet (Pravachol)Indicati ons:Dyslipidemia TAKE 1 TABLET BY MOUTH ONCE DAILY 90 Tablet 3 03/19/2023 Active Lisinopril 40 MG Oral TabletIndications:H TN, goal below 140/90 TAKE 1 TABLET BY MOUTH EVERY MORNING 90 Tablet 1 08/10/2023 Active Triamcinolone Acetonide 0.5 % External Cream (Aristocort)Indicat ions:Irritant contact dermatitis due to plants, except food Apply topically to affected area 2 times a day. To affected area. 30 g 1 12/07/2023 Active Apixaban 5 MG Oral Tablet (Eliquis)Indication s:Typical atrial flutter (HCC) Take 1 Tablet by mouth in the morning and 1 Tablet before bedtime. 180 Tablet 3 12/14/2023 Active Clopidogrel Bisulfate 75 MG Oral Tablet (Plavix) Take 1 Tablet by mouth in the morning. 90 Tablet 3 12/14/2023 Active Metoprolol Succinate ER 25 MG Oral Tablet Extended Release 24 Hour (toPROL XL)Indications:HTN, goal below 140/90 Take 1-2 tablet by mouth once daily as needed for hypertension. 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 05/11/2020 documented as of this encounter (statuses as of 12/18/2023) Immunizations Name Administration Dates Next Due COVID-19 mRNA, LNP-s, No Pre serve, 2-Dose Series (Abigail Stewart) 05/29/2021,09/24/2020,08/28/2020 Pneumococcal Polysaccharide PPV23 (Pneumovax) 04/30/2012 Season [...] Packs/Day Years Used Date Smoking Tobacco: Never Passive Smoke Exposure: Past Smokeless Tobacco: Never Alcohol Use Standard Drinks/Week [...] Date Recorded PHQ Adult Total Score 0 09/21/2023 Hunger Vital Sign Answer Date Recorded Within the past 12 months, y ou worried that your food would run out before you got the money to buy more. Never true 09/21/19 24 Within the past 12 months, t he food you bought just didn't last and you didn't have money to get more. Never true 09/21/2023 Childcare Answer Date Recorded Do you feel overwhelmed with taking care of a child, family member or friend? No 09/21/2023 Does your family need help f inding childcare? (Household - for ages 0-17 years) Not on file 09/21/2023 Clothing Answer Date Recorded Have you been unable to get clothing when it was really needed? No 09/21/2023 Is your family able to get c lothes or diapers when needed? (Household - for ages 0-17 years) Not on file 09/21/2023 Personal Safety Answer Date Recorded Do you feel unsafe or have concerns for your saf ety? No 09/21/2023 Do you have concerns for you r family's safety? (Household - for ages 0-17 years) Not on file 09/21/2023 Utilities Answer Date Recorded Do you have trouble paying y our heating, water, or electric bill? No 09/21/2023 Is your family able to pay t he heat, water, or electric bill? (Household - for ages 0-17 years) Not on file 09/21/2023 Does your family have access to good internet? (Household - for ages 0-17 years) Not on file 09/21/2023 Employment Status Answer Date Recorded Are you unemployed or without regular income? No 09/21/2023 Does the household have a re gular source of income? (Household - for ages 0-17 years) Not on file 09/21/2023 Social Connections Answer Date Recorded How often do you feel lonely or isolated from th ose around you? Never 09/21/2023 Financial Resource Strain Answer Date R ecorded Do you have any trouble payi ng for your medications, or do you think you might in the future? No 09/21/2023 Does your family have troubl e paying for medicine? (Household - for ages 0-17 years) Not on file 09/21/2023 Transportation Needs Answer Date Record ed READ ONLY Do you have troubl e getting a ride to medical visits or work? Never True 09/21/2023 Does your family have a hard time getting a ride to doctors visits? (Household - for ages 0-17 years) Not on file 09/21/2023 Has lack of transportation k ept you from medical appointments, meetings, work, or from getting things needed for daily living? Check all that apply. (Adult - for ages 18 years and over) Not on file 09/21/2023 Do you (or your family) have trouble finding or paying for a ride (transportation)? (Household - for ages 0-17 years) Not on file 09/21/2023 Housing Stability Answer Date Recorded Do you currently live in a s helter or have no steady place to sleep at night? No 09/21/2023 READ ONLY Do you think you a re at risk of becoming homeless? No 09/21/2023 Does your family worry about paying for your home or becoming homeless? (Household - for ages 0-17 years) Not on file 0 09/21/2023 Are you homeless or worried that you might be in the future? (Adult - for ages 18 years and over) Not on file Are you (or your family) vega eless or worried that you might be in the future? (Household - for ages 0-17 years) Not on file Food Insecurity Answer Date Recorded Do you need food for this week? No 09/21/2023 Are you able to get enough f ood for your family? (Household - for ages 0-17 years) Not on file 09/21/2023 Does your family need food t his week? (Household - for ages 0-17 years) Not on file 09/21/2023 Do you always have enough fo od for your family? (Household - for ages 0-17 years) Not on file 09/21/2023 Sex and Gender Information Value Date Recorded Sex Assigned at Male 03/12/2020 10:13 AM EDT Gender Identity Male 03/12/2020 10:13 AM EDT Sexual Orientation Straight 03/12/2020 10 :13 AM EDT Job Start Date Occupation Industry Not on file Not on file Not on file documented as of this encounter Patient Instructions * Patient Instructions* Robson Suarez MD - 12/17/2023 4:12 PM EDT ........................................... documented in this encounter Progress Notes * Bryan Arana DO - 12/18/2023 10:43 AM EDT I have discussed the patient's management with the medical trainee and agree with the note. Please refer to the documented findings and plan of care. This patient's visit today consisted of a service. I was readily available for immediate pdax-bu-zolo consultation and assistance. I have reviewed the medical history, physical examination, diagnosis, and plan. Bryan Arana DO * Robson Suarez MD - 12/17/2023 2:19 PM EDT 12/17/2023 URGENT CARE CLINIC NOTE HPI: Burton Rosas is a 78 year old pt who presents to [facility]. He is complaining of a few weeks of pain in left eye and some headaches. He denies scalp tingling or tenderness, trouble chewing or jaw pain, or abnormal muscle weakness or pain. He uses Systane Ultra in AM. Patient recently started on Plavix for a stent. Nursing Notes: Nathaly Smith TECH 12/17/23 1417 Signed Burton Rosas is a 78 year old male who presents for eye pressure and headache. Last Visit: Visit date not found (in office), Visit date not found (telemedicine) He currently states about a month ago he started having pressure behind the OS and as the day goes on it gets worse to the point of having headaches. It will start over just like that every day. No pressure or pain in the A.M but as the day goes on the pressure pain starts and gets worse throughoutthe day. No pain in the jaw or ringing in the ears. No fever nausea or vomiting. No sudden weight loss. When he closes OD vision is grayed out and pixilated like looking through a screen. Did wear a CPAP but was taken off it it due to drying out and having nose bleeds.does have MRI results for review. Last eye exam was about 6 weeks ago. Are you diabetic? NO. Current Ophthalmic Medications: Systane, Preservative Free Last Visit: Visit date not found (in office), Visit date not found (telemedicine) Vision, Tonometry, current glass prescription and pupil check if done can be found in the ophth exam ROS: Refer to HPI, otherwise negative unless noted. 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 180 Tablet 3 Apixaban 5 MG Oral Tablet (Eliquis) Take 1 Tablet by mouth in the morning and 1 Tablet before bedtime. 180 Tablet 3 Clopidogrel Bisulfate 75 MG Oral Tablet (Plavix) Take 1 Tablet by mouth in the morning. 90 Tablet 3 Triamcinolone Acetonide 0.5 % External Cream (Aristocort) Apply topically to affected area 2 times a day. To affected area. 30 g 1 Lisinopril 40 MG Oral Tablet TAKE 1 TABLET BY MOUTH EVERY MORNING 90 Tablet 1 hydroCHLOROthiazide 25 MG Oral Tablet (Hydrodiuril) TAKE 1 TABLET BY MOUTH EVERY MORNING 90 Tablet 3 Pravastatin Sodium 40 MG Oral Tablet (Pravachol) TAKE 1 TABLET BY MOUTH ONCE DAILY 90 Tablet 3 One-A-Day Adult VitaCraves+DHA Oral Tablet Chewable Take by mouth. Metamucil Smooth Texture 58.6 % Oral Powder (Psyllium) Take by mouth 3 times a day. One scoop in 8 ounces of water, up to three times a day. No current facility-administered medications for this visit. Past Surgical History: Procedure Laterality Date AMPUTATION OF FINGER/THUMB Left 08/29/2020 partial with I&D repair of thumb/index finger COLONOSCOPY, DIAGNOSTIC (RECTUM) 06/03/2019 adenomatous polyps, repeat 3 yrs/COLONOSCOPY FLEXIBLE PROXIMAL DIAGNOSTIC performed by Catracho Ayoub MD at [facility] COLONOSCOPY, DIAGNOSTIC (RECTUM) 10/17/2022 benign adenomatous polyp, repeat 5 yrs / COLONOSCOPY FLEXIBLE PROXIMAL DIAGNOSTIC performed by Rad Puentes MD at [facility] TURP, RESIDUAL OR RECURRENT, COMPLETE 04/11/2022 Base Eye Exam Visual Acuity (Snellen - Linear) Right Left Dist sc 20/40 -2 20/30 -2 Dist ph sc 20/20 -1 Tonometry (Non-contact air puff, 2:16 PM) Right Left Pressure 10 11 Pupils Pupils Dark Light Shape React APD Right PERRL 3 2 Round Minimal None Left PERRL 3 2 Round Minimal None Visual Sanchez (Counting fingers) Right Left Full Full Extraocular Movement Right Left Full Full Neuro/Psych Oriented x3: Yes Additional Tests Color Right Left Ishihara 05/09 12/07 Keratometry (Automated) K1 [place] K2 [place] Right 43.50 113 44.25 23 Left 43.75 65 44.25 155 Refraction Manifest Refraction (Auto) Sphere Cylinder [place] Right +1.00 +0.75 018 Left -0.50 +0.50 135 Nursing notes reviewed. OCT Mac 12/17/23 OD: wnl OS: wnl OCT Nerve 12/17/23 OD: wnl OS: wnl ASSESSMENT/PLAN Corneal Dellen - Left Eye -Recommend artificial tears up to 4 times daily -Brand names given - Refresh or Systane -Warm compresses -Lubricating ointment at night if needed 2. Headaches -Unclear etiology - no clear ophthalmic etiology on exam -OCTs wnl -Unlikely GCA based on symptoms and exam -Patient to see next available neurologist - scheduled for 12/21/23. RTC or sooner prn. Patient discussed with Dr. Arana. A/P explained, patient verbalized understanding. Patient understands to f/u immediately with questions, concerns, or any ophthalmic issues. Robson Suarez MD 12/17/2023 2:24 PM documented in this encounter Nursing Notes * Fern Peterson COA - 12/17/2023 3:20 PM EDT OCT image(s) of both eyes acquired and filed/scanned into chart. * Nathaly Smith TECH - 12/17/2023 1:59 PM EDT Burton Rosas is a 78 year old male who presents for eye pressure and headache. Last Visit: Visit date not found (in office), Visit date not found (telemedicine) He currently states about a month ago he started having pressure behind the OS and as the day goes on it gets worse to the point of having headaches. It will start over just like that every day. No pressure or pain in the A.M but as the day goes on the pressure pain starts and gets worse throughoutthe day. No pain in the jaw or ringing in the ears. No fever nausea or vomiting. No sudden weight loss. When he closes OD vision is grayed out and pixilated like looking through a screen. Did wear a CPAP but was taken off it it due to drying out and having nose bleeds.does have MRI results for review. Last eye exam was about 6 weeks ago. Are you diabetic? NO. Current Ophthalmic Medications: Systane, Preservative Free Last Visit: Visit date not found (in office), Visit date not found (telemedicine) Vision, Tonometry, current glass prescription and pupil check if done can be found in the ophth exam documented in this encounter Plan of Treatment Upcoming Encounters Date Type Department Care Team (Late st Contact Info) Description 12/21/2023 8:00 AM EDT Office Visit Neurology [facility] [address] [place] [address] Earnestine Hartley PA-C [address] [facility] [place] [address] 12/24/2023 9:30 AM EDT Office Visit Cardiology, [facility] [address] [place] [address] Dinesh Scherer DO [address] [place] [address] 01/07/2024 9:15 AM EDT Telemedicine Otolaryngology, [facility] [address] [place] [address] Nadine Sepulveda MD [address] [place] [address] 02/02/2024 10:30 AM EDT Office Visit [facility] [address] [place] [address] Robson Suarez MD [address] [place] [address] 03/29/2024 9:00 AM EDT Office Visit [facility] [address] [place] [address] Gill Lopez CRNP [address] [place] [id number] 05/12/2024 3:45 PM EST Office Visit [facility] [address] [place] [address] Tyra Alonzo MD [address] [facility] [place] [address] 08/03/2024 9:20 AM EST Office Visit [facility] [address] [place] [address] Aaron Stevens MD [address] [place] [address] Scheduled Orders Name Type Priority Associated Diagnoses Orde r Schedule RETINA SCAN DIAGNOSTIC IMAGE, POSTERIOR Procedures Routine Subjective vision disturbance Visual distortions of shape and size Ordered: 12/17/2023 Scheduled Procedures Name Priority Associated Diagnoses Date/Ti me COLONOSCOPY FLEXIBLE PROXIMA L DIAGNOSTIC Recall History of colonic polyps Scheduled Referrals Name Type Priority Associated Diagnoses Orde r Schedule ADULT NEUROLOGY REFERRAL OP Referral Within 10 days (routine) Subjective vision disturbance Ordered: 12/17/2023 Health Maintenance Due Date Last Done Comments Pneumococcal Vaccine: 65+ Years (2 of 2 - PCV) 04/30/2013 04/30/2012 COVID-19 Vaccine ( season) 2023 05/29/2021, 09/24/2020, 08/28/2020 GFR 12/09/2023 12/08/2022, 08/28, 01/16/2022, Additional history exists Influenza Vaccine (FLU shot) (Season Ended) 2024 05/14/2021, 05/14/2021, 03/12/2020, Additional history exists HbA1c 08/26/2024 08/27/2023, 11/27, 11/21/2021, Additional history exists Depression Screening 09/20/2024 09/21/2023 Albumin/Creatinine Ratio 12/08/2025 12/08/2022 Colonoscopy 10/18/2027 10/17/2022, 09/28, 06/03/2019, Additional history exists DTaP,Tdap,and Td Vaccines (2 - Td or Tdap) 04/23/2028 04/23/2018 Zoster Vaccines Completed 08/13/2021, 01/29/2021 RETIRED - COLONOSCOPY-EVERY 5 YRS AGES 18-100 Discontinued 10/17/2022, 10/17/2022, 06/03/2019, [...] as of this encounter Visit Diagnoses Diagnosis Subjective vision disturbance- Primary Subjective visual disturbance, unspecified Visual distortions of shape and size documented in this encounter Advance Directives Documents on File Type Date Recorded 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
--- OUTSIDE RECORDS SUMMARY | 2023-12-19 11:41 | External Medical Summary | Summary of Care ---
Author Name Unknown Organization [facility] Address [address] [facility] [place] [address] Phone [phone] Care Team Providers Care Special Needs Caregiver Name Role Phone Aaron Stevens MD Primary Care Provider [phone]- [phone] Reason for Visit * Reason Onset Date Comments Cardiac Rehab 10/02/2023 Encounter Details Date Type Department Care Team (Late st Contact Info) Description 10/02/2023 Telephone Cardiology, [facility] [address] [place] [address] Germán Arellano, [address] [place] [address] Cardiac Rehab Allergies No known active allergiesdocumented as of this encounter (statuses as of 10/07/2023) Medications Medication Sig Dispensed Refills Start Date [...] EVERY MORNING 90 Tablet 1 08/10/2023 Active Clopidogrel Bisulfate 75 MG Oral Tablet (Plavix) Take 1 Tablet by mouth in the morning. 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 Never true 09/21/2023 Sex and Gender Information Value Date Recorded Sex Assigned at Male 03/12/2020 10:13 AM EDT Gender Identity Male 03/12/2020 10:13 AM EDT Sexual Orientation Straight 03/12/2020 10 :13 AM EDT Job Start Date Occupation Industry Not on file Not on file Not on file documented as of this encounter Miscellaneous Notes * Telephone Encounter - Kae Pineda, ANA - 10/07/2023 5:02 PM EDT Person calling: Burton Relationship to patient: self Number to return call: [phone] Reason for call: return call Pharmacy: Provider Name:Dr. Adan Manrique is retuning missed call states he is scheduled for 10/14 for rehab. Thank you ANA Salinas * Telephone Encounter - Christina Dean RN - 10/07/2023 3:58 PM EDT Called, left message for patient to return call. Upon return call, please notify patient that cardiac rehab differs from physical therapy. Closest facility to perform cardiac rehab to home is [facility] where order/information was sent. * Telephone Encounter - Roxana Morfin OSA - 10/06/2023 9:56 AM EDT Pt called he wants to go close to his house for cardiac rehab Jeff Please fax order to [phone] Thank you ANA Estrada * Telephone Encounter - Carlos Manuel Leroy RN - 10/02/2023 11:57 AM EDT LOMN and records faxed to [facility] cardiac rehab documented in this encounter Plan of Treatment Upcoming Encounters Date Type Department Care Team (Late st Contact Info) Description 10/15/2023 11:00 AM EDT [facility] [place] [address] [place] [address] Nadine Sepulveda MD [address] [place] [address] 11/24/2023 10:00 AM EDT Office Visit Cardiology, [facility] [place] [address] Macie Emery CRNP [address] [place] [address] 12/24/2023 9:30 AM EDT Office Visit Cardiology, [facility] [address] [facility] [place] [address] Dinesh Scherer DO [address] [place] [address] 03/29/2024 9:00 AM EDT Office Visit Sleep Disorders Ctr [facility] [address] [facility] [place] [phone] Gill Lopez CRNP [address] [place] [address] 08/03/2024 9:20 AM EST Office Visit [facility] [address] [place] [phone] Aaron Stevens MD [address] [place] [address] Scheduled Procedures Name Priority Associated Diagnoses Date/Ti [...] Screening 09/20/2024 09/21/2023 Albumin/Creatinine Ratio 12/08/2025 12/08/2022 COLONOSCOPY-EVERY 5 YRS [...] Not on filedocumented as of this encounter Advance Directives Documents on File Type Date Recorded Patient Account Executive Trainee Expl anation Advance Directives and Living Will 10/06/2023 signed on 10/25/2018 ADVANCE DIRECTIVE / LIVING WILL Power of Nail Making Machine Setter 10/06/2023 signed on 10/25/2018 POWER OF NUTRITION CONSULTANT [facility] Care Teams Special Needs Caregiver Relationship Specialty Start Date End Date Aaron Stevens MD [address] [place] [address] PCP - General Family Medicine 07/29/23 documented as of this encounter
--- OUTSIDE RECORDS SUMMARY | 2023-12-19 11:41 | External Medical Summary | Summary of Care ---
Author Name Unknown Organization [facility] Address [address] [place] [address] Phone [phone] Care Team Providers Care Passenger Tire Inspector Name Role Phone Aaron Stevens MD Primary Care Provider [phone]- [phone] Reason for Visit * Reason Comments NEW PATIENT Sinus issues * Evaluate & Treat - Unlimited Visits (Within 30 days (routine)) - Authorized Specialty Diagnoses / Procedures Referred By Rocio malone Referred To Contact Otolaryngology Diagnoses Acute sinusitis, recurrence not specified, unspecified location Globus sensation Aaron Stevens MD [address] [place] [address] Referral ID Status Reason Start Date Expiration Date Visits Requested Visits Authorized [id number] Authorized Specialty Services Required 07/29/2023 [id number] Encounter Details Date Type Department Care Team (Late st Contact Info) Description 10/15/2023 11:00 AM EDT Office Visit Otolaryngology, [facility] [address] [address] Nadine Sepulveda MD [address] [address] Globus pharyngeus*; Acute sinusitis, recurrence not specified, unspecified location [J01.90]; Epistaxis, recurrent [R04.0] Allergies No known active allergiesdocumented as of this encounter (statuses as of 10/15/2023) Medications Medication Sig Dispensed Refills Start Date [...] as of this encounter (statuses as of 10/15/2023) Active Problems Problem Noted Date Diagnosed Date [...] as of this encounter (statuses as of 10/15/2023) Resolved Problems Problem Noted Date Diagnosed Date Resolved Date 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42 10/15/2023 10:09 AM EDT documented in this encounter Progress Notes * Nadine Sepulveda MD - 10/15/2023 11:00 AM EDT 10/15/2023 HISTORY OF PRESENT ILLNESS This 78 year old year old male is seen today for the initial complaint of globus. The provider requesting consultation is Aaron Stevens MD. Nursing Notes: Vaishali Jimenez LPN 10/15/23 1012 Signed Chief Complaint Patient presents with NEW PATIENT Sinus issues Burton Rosas is a 78 year old male who presents today for sinus issues. No other concerns voiced. 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 34 Tablet 11 No current facility-administered medications for this visit. Allergies Review of patient's allergies indicates: No Known Allergies Family History Family History Problem Relation Age of Onset Heart attack Father Social History Social History Tobacco Use Smoking status: Never Passive exposure: Past Smokeless tobacco: Never Substance Use Topics Alcohol use: Yes Comment: less than 1 beer per month Vaping/E-Cigarette Use Vaping/E-Cigarette Use Never User Vaping/E-Cigarette Substances Nicotine No Other No Flavoring No THC No Cannabidiol (CBD) No Vaping/E-Cigarette Devices Disposable No Pre-filled or Refillable Cartridge No Refillable Tank No Pre-filled Pod No Occupational History Work: Review of Systems Negative for constitutional, eyes, cardiac, pulmonary, hepatic, renal, digestive, hematologic, epileptic, syncopal, musculo-skeletal, mental health, integumentary, hypertensive, lipid, arthritic, diabetic, thyroid or neurologic disorders (except as listed in the PMH and Problem List). Physical Examination: Temp 36.3 C (97.3 F) (Temporal Artery) | Ht 1.753 m (5' 9.02") | Wt 90.4 kg (199 lb 4.8 oz) | BMI 29.42 kg/m | BSA 2.1 m PHYSICAL EXAM General: This is a healthy appearing male who appears his stated age. The patient is alert and appropriately verbally conversant without hoarseness. Face: The face was inspected and no cutaneous masses or lesions were visualized. There was no erythema or edema noted. Facial movement was symmetric without weakness. No skin lesions were detected. The parotid and submandibular glands were normal to palpation. Eyes: Extra-ocular muscle function was intact. No nystagmus was observed. Pupils were equal. Cranial Nerves: Grossly intact Nose: Examination of the nose prior to decongestion revealed no masses, polyps, mucopus, or other lesion. The nasal septum was non-obstructing. The turbinates were without abnormality. No septal perforation. Oral Cavity: Examination of the oral cavity revealed no mass lesions nor infection. The palate was noted to be intact without evidence of clefting. The tongue exhibited normal mobility. Mucosa was moist without lesion. The lips were free of lesion. Gums were free of inflammation. Dentition: Unremarkable Oropharynx: The oral pharynx was free of mass lesion or mucosal abnormality. The palate was noted to be without lesion. The uvula was normal appearing. The tonsils were unremarkable. Hypopharynx: flexible fiberoptic examination of the hypopharynx revealed normal mucosa. The tongue base was normal. There was no abnormal lymphoid tissue. There were no mass lesions. Larynx: flexible fiberoptic examination of the larynx revealed no mass lesions. Vocal cord mobilitywas normal without paralysis or paresis. No vocal cord masses were visualized. The pyriform sinuseswere free of mass lesion and significant pooling. The mucosa was normal appearing. Ears: Examination of the ears revealed that the auricles were normally formed with no lesions. The external auditory canals were cleaned of any obstructing cerumen. The tympanic membranes were intact. There are no significant retraction pockets. There is no inflammation visualized. No effusions areseen. Neck: Visualization and palpation of the neck revealed no mass lesions, no thyromegaly or thyroid masses. No skin lesions or inflammatory processes were detected. The cervical musculature was normal to palpation. Lymphatics (cervical): There were no palpable lymph nodes in the posterior triangle, submandibular triangle, jugulodigastric region, or central neck. Lungs: Breathing quietly. No use of accessory muscles. Heart: Regular rate. No JVD. Procedure: Due to patient's inability to cooperate with mirror exam or concern for structures otherwise not evaluated, fiberoptic examination of the larynx was performed. The nose was first topically decongested with topical oxymetazoline 0.05% spray and topically anesthetized with topical Lidocaine 4% spray. Nasopharynx, oropharynx, larynx and hypopharynx were carefully examined. Vocal fold motion was evaluated. The patient tolerated the procedure well. Patient should refrain from eating or drinking for 30-45 minutes due to anesthesia of the pharynx and possible interference with swallowing. Specific findings: Nasal passage. Left nasal passage is within normal limits no lesions or purulence. Twelve epistaxis Phenylephrine spray was applied in the right nostril followed by bleeder rest and more phenylephrine spray. Patient tolerated without issue. Plan: Globus pharyngeus (Primary) Education of epistaxis prevention was provided, which includes: 1. NeilMed or similar nasal irrigations BID 2. [place] spray or saline mist spray QID and PRN to keep nasal mucosa moist 3. Avoid nasal cannula for supplemental oxygen if required, can use face tent or face mask instead. 4. Use of a humidifier in the bedroom 5. Vaseline in bilateral nasal vestibules BID (after using NeilMed) If patient has an episode of epistaxis: 1. Can use over the counter Oxymetazoline spray (Afrin) in both nostrils 2. Hold firm pressure over the soft portion of the nose, as demonstrated in clinic for 20 minutes. NO PEEKING. 3. Lean forward so blood is not swallowed or aspirated 4. If still bleeding after 20 minutes can repeat steps 1-3 one more time 5. If still bleeding proceed to nearest Emergency department or Urgent care The only be on Plavix for 6 months. We will not do Flonase for his sinus issues right now given hisepistaxis. Will do a phone visit in 12 weeks when if he is still having epistaxis can consider rosegeranium oil. Extensive time was spent discussing the above diagnosis, management and treatment. I reviewed all outside documentation, labs, and imaging. Nadine Sepulveda MD [facility] Otolaryngology - Head and Neck [place], [place] 10/15/2023 9:35 AM documented in this encounter Nursing Notes * Vaishali Jimenez LPN - 10/15/2023 10:12 AM EDT Chief Complaint Patient presents with NEW PATIENT Sinus issues Burton Rosas is a 78 year old male who presents today for sinus issues. No other concerns voiced. documented in this encounter Plan of Treatment Upcoming Encounters Date Type Department Care Team (Late st Contact Info) Description 11/24/2023 10:00 AM EDT Office Visit [facility] [address] [facility] [address] Macie Emery CRNP [address] [facility] [place] [address] 12/24/2023 9:30 AM EDT Office Visit Cardiology, [facility] [address] [facility] [place] [address] Dinesh Scherer, [address] [place] [address] 01/07/2024 9:15 AM EDT Telemedicine Otolaryngology, [place] [address] [address] Nadine [facility]ulveda [facility] [address] [facility] [address] 03/29/2024 9:00 AM EDT Office Visit Sleep Disorders [facility] [address] [facility] [place] [phone] Gill Lopez CRNP [address] [facility] [place] [address] 08/03/2024 9:20 AM EST Office Visit [facility] [address] [place] [id number] Aaron Stevens MD [address] [place] [address] Scheduled Procedures Name Priority Associated Diagnoses Date/Ti [...] - 2022- season) 2023 05/29/2021, 09/24/2020, 08/28/2020 GFR 12/09/2023 [...] as of this encounter Visit Diagnoses Diagnosis Globus pharyngeus- Primary Conversion disorder Acute sinusitis, recurrence not specified, unspecified location [J01.90] Epistaxis, recurrent [R04.0] Epistaxis documented in this encounter Advance Directives Documents on File Type Date Recorded Patient Child And Family Therapist Expl anation Advance Directives and Living Will 10/06/2023 signed on 10/25/2018 ADVANCE DIRECTIVE / LIVING WILL Power of Polishing Machine Operator Helper 10/06/2023 signed on 10/25/2018 POWER OF SUPERVISOR STOCK RANCH [facility] Care Teams Passenger Tire Inspector Relationship Specialty Start Date End Date Aaron Stevens MD [address] [address] PCP - General Family Medicine 07/29/23 documented as of this encounter
--- OUTSIDE RECORDS SUMMARY | 2023-12-19 11:41 | External Medical Summary | Summary of Care ---
Author Name Unknown Organization [facility] Address [address] [facility] [place] [address] Phone [phone] Care Team Providers Care Fretted Instrument Inspector Name Role Phone Aaron Stevens MD Primary Care Provider [phone]- [phone] Reason for Visit * Reason Onset Date Comments Cardiac Rehab 10/02/2023 Encounter Details Date Type Department Care Team (Late st Contact Info) Description 10/02/2023 Telephone Cardiology, [facility] [address] [place] [address] Germán Arellano, [address] [place] [address] Cardiac Rehab Allergies No known active allergiesdocumented as of this encounter (statuses as of 10/06/2023) Medications Medication Sig Dispensed Refills Start Date [...] as of this encounter (statuses as of 10/06/2023) Active Problems Problem Noted Date Diagnosed Date [...] as of this encounter (statuses as of 10/06/2023) Resolved Problems Problem Noted Date Diagnosed Date Resolved Date 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 05/11/2020 documented as of this encounter (statuses as of 10/06/2023) Immunizations Name Administration Dates Next Due COVID-19 mRNA, LNP-s, No Pre serve, 2-Dose Series ([employer]) 05/29/2021,09/24/2020,08/28/2020 Pneumococcal Polysaccharide PPV23 (Pneumovax) 04/30/2012 Season [...] encounter Miscellaneous Notes * Telephone Encounter - Roxana Morfin, ANA - 10/06/2023 9:56 AM EDT Pt called he wants to go close to his house for cardiac rehab Jeff Please fax order to [phone] Thank you ANA Estrada * Telephone Encounter - Carlos Manuel Leroy RN - 10/02/2023 11:57 AM EDT LOMN and records faxed to [facility] cardiac rehab documented in this encounter Plan of Treatment Upcoming Encounters Date Type Department Care Team (Late st Contact Info) Description 10/15/2023 11:00 AM EDT Office Visit Otolaryngology, [facility] [address] [address] Nadine Sepulveda MD [address] [address] 11/24/2023 10:00 AM EDT Office Visit Cardiology, [facility] [address] [place] [address] [address] Macie Emery CRNP [address] [place] [address] [place] [address] 12/24/2023 9:30 AM EDT Office Visit Cardiology, [facility] [address] [address] Dinesh Scherer, [address] [place] [address] 03/29/2024 9:00 AM EDT Office Visit [facility] [address] [place] [phone] Gill Lopez CRNP [address] [address] 08/03/2024 9:20 AM EST Office Visit [facility] [address] [place] [address] Aaron Stevens MD [address] [place] [facility] [place] [address] Scheduled Procedures Name Priority Associated Diagnoses [...] filedocumented as of this encounter Care Teams Fretted Instrument Inspector Relationship Specialty Start Date End Date Aaron Stevens MD [address] [place] [address] PCP - General Family Medicine 07/29/23 documented as of this encounter
--- OUTSIDE RECORDS SUMMARY | 2023-12-19 11:41 | External Medical Summary | Summary of Care ---
Author Name Unknown Organization [facility] Address [address] [place] [address] Phone [phone] Care Team Providers Care Tissue Inserter Name Role Phone Aaron Stevens MD Primary Care Provider +1- [phone] Reason for Referral * Evaluate & Treat - Unlimited Visits (Within 10 days (routine)) - Authorized Specialty Diagnoses / Procedures Referred By Rocio malone Referred To Contact Dermatology Diagnoses Rash and nonspecific skin eruption Justino Mcneil MD [address] [place] [address] Tyra Alonzo MD [address] [place] [id number] Referral ID Status Reason Start Date Expiration Date Visits Requested Visits Authorized [id number] Authorized Specialty Services Required 12/15/2023 999 999 Question Answer Referral Priority Within 10 days (routine) Where should this appointment be scheduled? [facility] Are you referring the patient for Mohs Surgery and have a current positive skin cancer biopsy result? No What is the reason for the patient referral? Rash/Skin Check/Eval of Lesion or Mole * Evaluate & Treat - Unlimited Visits (Within 10 days (routine)) - Authorized Specialty Diagnoses / Procedures Referred By Rocio malone Referred To Contact Ophthalmology Diagnoses Change in vision Justino Mcneil MD [address] [place] [address] Referral ID Status Reason Start Date Expiration Date Visits Requested Visits Authorized [id number] Authorized Specialty Services Required 12/15/2023 999 999 Question Answer Referral Priority Within 10 days (routine) Where should this appointment be scheduled? [facility] Referring for: Ophthalmology Conditions Ophthalmology Conditions Change in Vision Comments Pressure behind left eye, progressing, having blurriness/vision changes Reason for Visit * Reason Comments Acute Patient is here toda y due to a rash, and pressure in his head that causes pressure in his left eye. Patient states the rash started about four weeks ago and he was prescribed ointment that has helped some but has not taken it away completely. Patient is assuming it is poison. Patient states he has been having pressure in his head since last May and he did have an MRI, patient states the pressure is getting progressively worse and is now affecting his vision. Encounter Details Date Type Department Care Team (Late st Contact Info) Description 12/15/2023 3:00 PM EDT Office Visit [facility] [address] [place] [address] Justino Mcneil MD [address] [place] [address] Change in vision*; HTN, goal below 140/90; PAF (paroxysmal atrial fibrillation) ([facility]); Rash and nonspecific skin eruption Allergies No known active allergiesdocumented as of this encounter (statuses as of 12/15/2023) Medications Medication Sig Dispensed Refills Start Date End Date Status Metamucil Smooth Texture 58.6 % Oral Powder (Psyllium) Take by mouth 3 times a day. One scoop in 8 ounces of water, up to three times a day. 05/11/2020 Active One-A-Day Adult VitaCraves+DHA Oral Tablet Chewable Take by mouth. Active hydroCHLOROthiaz margo 25 MG Oral Tablet (Hydrodiuril)Ind ications:PAF (paroxysmal atrial fibrillation) (HCC),HTN, goal below 140/90 TAKE 1 TABLET BY MOUTH EVERY MORNING 90 Tablet 3 03/20/2023 Active Pravastatin Sodium 40 MG Oral Tablet (Pravachol)Indic ations:Dyslipide rolando TAKE 1 TABLET BY MOUTH ONCE DAILY 90 Tablet 3 03/19/2023 Active Lisinopril 40 MG Oral TabletIndication s:HTN, goal below 140/90 TAKE 1 TABLET BY MOUTH EVERY MORNING 90 Tablet 1 08/10/2023 Active Triamcinolone Acetonide 0.5 % External Cream (Aristocort)Shanika cations:Irritant contact dermatitis due to plants, except food Apply topically to affected area 2 times a day. To affected area. 30 g 1 12/07/2023 Active Apixaban 5 MG Oral Tablet (Eliquis)Indicat ions:Typical atrial flutter (HCC) Take 1 Tablet by mouth in the morning and 1 Tablet before bedtime. 180 Tablet 3 12/14/2023 Active Clopidogrel Bisulfate 75 MG Oral Tablet (Plavix) Take 1 Tablet by mouth in the morning. 90 Tablet 3 12/14/2023 Active Metoprolol Succinate ER 25 MG Oral Tablet Extended Release 24 Hour (toPROL XL)Indications:H TN, goal below 140/90 Take 1-2 tablet by mouth once daily as needed for hypertension. 180 Tablet 3 12/15/2023 Active Metoprolol Succinate ER 25 MG Oral Tablet Extended Release 24 Hour (toPROL XL)Indications:H TN, goal below 140/90 Take 1 tablet by mouth once daily as needed for hypertension. 90 Tablet 3 05/03/2023 12/15/2023 Discontinued (Refill) documented as of this encounter (statuses as of 12/15/2023) Active Problems Problem Noted Date Diagnosed Date [...] as of this encounter (statuses as of 12/15/2023) Resolved Problems Problem Noted Date Diagnosed Date Resolved Date 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 05/11/2020 documented as of this encounter (statuses as of 12/15/2023) Immunizations Name Administration Dates Next Due COVID-19 [...] Sign Reading Time Taken Comments Blood Pressure 142/66 12/15/2023 2:55 PM EDT Pulse 61 12/15/2023 2:55 PM EDT Temperature 36.1 C (96.9 F) 12/15/2023 2:55 PM ED T Respiratory Rate 16 12/15/2023 2:55 PM EDT Oxygen Saturation 95% 12/15/2023 2:55 PM EDT Inhaled Oxygen Concentration - - Weight 88.7 kg (195 lb 8 oz) 12/15/2023 2:55 PM EDT Height 175.3 cm (5' 9") 12/15/2023 2:55 PM EDT Body Mass Index 28.87 12/15/2023 2:55 PM EDT documented in this encounter Progress Notes * Justino Mcneil MD - 12/15/2023 3:23 PM EDT Images from the original note were not included. Assessment and Plan 1. Change in vision Unclear etiology of patient's eye pain and change in vision. No symptoms have acutely change and therefore I do not believe there is any need for emergent imaging or treatment. I do believe it is reasonable to send him to Ophthalmology for further evaluation to consider dilated eye exam and furtherimaging. - ADULT/PEDS OPHTHALMOLOGY/OPTOMETRY REFERRAL OP 2. HTN, goal below 140/90 Blood pressure at goal. He does have a history of atrial fibrillation. Increase the number of pillsat his disposal as he takes 1-2 pills daily. - Metoprolol Succinate ER 25 MG Oral Tablet Extended Release 24 Hour (toPROL XL); Take 1-2 tablet by mouth once daily as needed for hypertension. Dispense: 180 Tablet; Refill: 3 3. PAF (paroxysmal atrial fibrillation) (HCC) 4. Rash and nonspecific skin eruption Mild PH remains. Triamcinolone as needed. - DERMATOLOGY REFERRAL OP Wrap-Up Follow up as needed. History of Present Illness The patient is a 78-year-old male with past medical history of dyslipidemia, prediabetes, atrial fibrillation, hypertension who presents for follow up. Patient presents to discuss multiple issues. He has a history of a contact dermatitis likely from poison oak or poison clinton for which he has been using triamcinolone cream for one-week. Itch has significantly improved. He does have some residual postinflammatory hyperpigmentation. Patient would also like to discuss left-sided head pressure along with some vision changes noted inthe left eye. These symptoms go back as far as late 2022. At that time he was having left-sided head pressure and headaches. He was seen by optometry who sent him for an MRI of the orbit. This was largely unremarkable. Notes over the last number of months symptoms have slowly worsened and at times he gets some blurry vision in the left eye. He denies other neurologic changes. Patient also with atrial fibrillation. He currently takes metoprolol 25 mg extended release once totwice daily based on whether or not he was atrial fibrillation and his heart rate and blood pressure. He was requesting more pills to allow for the intermittent increase in dose. Physical Exam Vitals: 12/15/23 1455 Temp: 36.1 C (96.9 F) Pulse: 61 Resp: 16 SpO2: 95% BP: 142/66 BMI: 28.86 Physical Exam Physical Exam Vitals reviewed. Constitutional: General: He is not in acute distress. Pulmonary: Effort: Pulmonary effort is normal. No respiratory distress. Skin: Comments: Mildly hyperpigmented patches on the forearms bilaterally. Neurological: General: No focal deficit present. Mental Status: He is alert. Psychiatric: Mood and Affect: Mood normal. Behavior: Behavior normal. This note has been completed in part utilizing [employer] Speech Voice Recognition Software. Due to technical limitations of the software, grammatical errors, random word insertions, prounoun errors, and incomplete sentences may occur. Any formal questions or concerns about the content, text, or information contained within the body of this dictation should be directly addressed to the provider for clarification. documented in this encounter Nursing Notes * Deysi Cummins LPN - 12/15/2023 2:58 PM EDT The patient has been properly identified by confirmation of name and date of . Chief Complaint Patient presents with Acute Patient is here today due to a rash, and pressure in his head that causes pressure in his left eye. Patient states the rash started about four weeks ago and he was prescribed ointment that has helpedsome but has not taken it away completely. Patient is assuming it is poison. Patient states he has been having pressure in his head since last May and he did have an MRI, patient states the pressure is getting progressively worse and is now affecting his vision. documented in this encounter Plan of Treatment Upcoming Encounters Date Type Department Care Team (Late st Contact Info) Description 12/24/2023 9:30 AM EDT Office Visit Cardiology, [facility] [address] [address] Dinesh Scherer DO [address] [address] 01/07/2024 9:15 AM EDT Telemedicine Otolaryngology, Sloan Rahman [address] [address] Nadine Sepulveda MD [address] [address] 03/29/2024 9:00 AM EDT Office Visit [facility] Disorders C[facility] [address] [phone] Gill Lopez CRNP [address] [place] [address] 05/12/2024 3:45 PM EST Office Visit [facility] [address] [place] [address] Tyra Alonzo MD [address] [place] [address] 08/03/2024 9:20 AM EST Office Visit [facility] [address] [place] [address] Aaron Stevens MD [address] [place], [place] [id number] Scheduled Procedures Name Priority Associated Diagnoses Date/Ti me COLONOSCOPY FLEXIBLE PROXIMA L DIAGNOSTIC Recall History of colonic polyps Scheduled Referrals Name Type Priority Associated Diagnoses Orde r Schedule ADULT/PEDS OPHTHALMOLOGY/OPTOMET RY REFERRAL OP Referral Within 10 days (routine) Change in vision Ordered: 12/15/2023 DERMATOLOGY REFERRAL OP Referral Within 10 days (routine) Rash and nonspecific skin eruption Ordered: 12/15/2023 Health Maintenance Due Date Last Done Comments [...] as of this encounter Visit Diagnoses Diagnosis Change in vision- Primary Unspecified visual disturbance HTN, goal below 140/90 Unspecified essential hypertension PAF (paroxysmal atrial fibrillation) (HCC) Atrial fibrillation Rash and nonspecific skin eruption Rash and other nonspecific skin eruption documented in this encounter Advance Directives Documents on File Type Date Recorded Patient Supervisor [employer] Expl anation Advance Directives and Living Will 10/06/2023 signed on 10/25/2018 ADVANCE DIRECTIVE / LIVING WILL Power of Human Geography Instructor 10/06/2023 signed on 10/25/2018 POWER OF TRACK MAINTAINER [facility] Care Teams Tissue Inserter Relationship Specialty Start Date End Date Aaron Stevens MD [address] [place] [address] PCP - General Family Medicine 07/29/23 documented as of this encounter
--- OUTSIDE RECORDS SUMMARY | 2023-12-19 11:41 | External Medical Summary | Summary of Care ---
Author Name Unknown Organization [facility] Address [address] [facility] [place] [address] Phone [phone] Care Team Providers Care Insurance Executive Name Role Phone Aaron Stevens MD Primary Care Provider +1- [phone] Reason for Visit * Reason Onset Date Comments Medication Refill 12/14/2023 Encounter Details Date Type Department Care Team (Late st Contact Info) Description 12/14/2023 Refill Cardiology, [facility] [address] [place] [address] Dinesh Scherer, [address] [place] [address] Typical atrial flutter (HCC) Allergies No known active allergiesdocumented as of this encounter (statuses as of 12/14/2023) Medications Medication Sig Dispensed Refills Start Date [...] 3 05/03/2023 Active Lisinopril 40 MG Oral TabletIndication s:HTN, [...] the morning. 90 Tablet 3 12/14/2023 Active Eliquis 5 MG Oral Tablet (Apixaban)Indica tions:Typical atrial flutter (HCC) TAKE 1 TABLET BY MOUTH TWICE DAILY every morning and before bedtime 180 Tablet 3 12/23/2022 12/14/2023 Discontinued (Refill) Clopidogrel Bisulfate 75 MG Oral Tablet (Plavix) Take 1 Tablet by mouth in the morning. 34 Tablet 11 10/01/2023 12/14/2023 Discontinued (Refill) documented as of this encounter (statuses as of 12/14/2023) Active Problems Problem Noted Date Diagnosed Date [...] as of this encounter (statuses as of 12/14/2023) Resolved Problems Problem Noted Date Diagnosed Date Resolved Date 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 05/11/2020 documented as of this encounter (statuses as of 12/14/2023) Immunizations Name Administration Dates Next Due COVID-19 [...] encounter Miscellaneous Notes * Telephone Encounter - Clovis Rosen PA-C - 12/14/2023 12:36 PM EDT Signed Prescriptions: Disp Refills Apixaban 5 MG Oral Tablet (Eliquis) 180 Ta*3 Sig: Take 1 Tablet by mouth in the morning and 1 Tablet before bedtime. Authorizing Provider: CLOVIS ROSEN Clopidogrel Bisulfate 75 MG Oral Tablet (P*90 Tab*3 Sig: Take 1 Tablet by mouth in the morning. Authorizing Provider: CLOVIS ROSEN * Telephone Encounter - Carlos Manuel Leroy RN - 12/14/2023 11:42 AM EDTPending Prescriptions: Disp Refills Apixaban 5 MG Oral Tablet (Eliquis) 180 Ta*3 Sig: Take 1 Tablet by mouth in the morning and 1 Tablet before bedtime. Clopidogrel Bisulfate 75 MG Oral Tablet (P*90 Tab*3 Sig: Take 1 Tablet by mouth in the morning. * Telephone Encounter - Carlos Manuel Leroy RN - 12/14/2023 11:42 AM EDT Pending Prescriptions: Disp Refills Apixaban 5 MG Oral Tablet (Eliquis) 180 Ta*3 Sig: Take 1 Tablet by mouth in the morning and 1 Tablet before bedtime. Clopidogrel Bisulfate 75 MG Oral Tablet (*90 Tab*3 Sig: Take 1 Tablet by mouth in the morning. Last Visit: 10/01/2023 (in office), Visit date not found (telemedicine) Next Visit: 12/24/2023 Last medication order date: 12/23/2022 Have you choosen a preferred pharm?? yes Patient Active Problem List Diagnosis HTN, goal below 140/90 Dyslipidemia BPH with obstruction/lower urinary tract symptoms ANA (obstructive sleep apnea) Hx of actinic keratosis Elevated prostate specific antigen (PSA) History of anal fissures History of gastric ulcer Prediabetes History of 2019 novel coronavirus disease (COVID-19) Typical atrial flutter (HCC) Aortic root dilatation (HCC) Atrial septal aneurysm Mild mitral regurgitation S/P ablation of atrial flutter PAF (paroxysmal atrial fibrillation) (HCC) Tachy-romario syndrome (HCC) Labs: Lab Results Component Value Date/Time CREATININE - [facility] 1.0 12/08/2022 07:44 AM CREATININE - [facility] 1.1 05/15/2020 08:01 AM CREATININE, RANDOM URINE - [facility] 151 12/08/2022 07:44 AM Lab Results Component Value Date/Time POTASSIUM - [facility] 3.6 12/08/2022 07:44 AM POTASSIUM - [facility] 3.8 05/15/2020 08:01 AM Lab Results Component Value Date/Time TSH - [facility] 1.60 01/16/2022 11:14 AM TSH - [facility] 1.99 11/29/2016 12:00 AM Lab Results Component Value Date/Time LDL CHOLESTEROL (CALCULATED) - [facility] 79 12/08/2022 07:44 AM LDL CHOLESTEROL (CALCULATED) - [facility] 94 11/21/2021 08:34 AM LDL CHOLESTEROL (CALCULATED) - [facility] 103 05/15/2020 08:01 AM LDL CHOLESTEROL (CALCULATED) - [facility] 116 05/30/2019 07:50 AM LDL CHOLESTEROL (DIRECT MEASURE) - [facility] NOT APPLICABLE 05/15/2020 08:01 AM LDL CHOLESTEROL (DIRECT MEASURE) - [facility] NOT APPLICABLE 05/30/2019 07:50 AM Lab Results Component Value Date/Time ALT - [facility] 19 12/08/2022 07:44 AM ALT - [facility] 33 05/15/2020 08:01 AM Hemoglobin AIC Results: Lab Results Component Value Date/Time HEMOGLOBIN A1C - [facility] 6.1 (H) 08/27/2023 07:40 AM HEMOGLOBIN A1C - [facility] 6.1 (H) 12/08/2022 07:44 AM HEMOGLOBIN A1C - [facility] 6.1 (H) 11/21/2021 08:34 AM HEMOGLOBIN A1C - [facility] 6.0 (H) 05/17/2020 07:47 AM * Telephone Encounter - Celine Iniguez, money counter - 12/14/2023 10:05 AM EDT Pharmacy asking for 90 days on clopidogrel (edited) and not a 90 day fill on eliquis left. Pharmacydid short fill, eliquis due to fill today. Did you pend patient's preferred pharmacy and medication before forwarding?yes [id number] [address] [facility] Pending Prescriptions: Disp Refills Apixaban 5 MG Oral Tablet (Eliquis) 180 Ta*3 Clopidogrel Bisulfate 75 MG Oral Tablet (*90 Tab*3 Sig: Take 1 Tablet by mouth in the morning. Last Visit: 10/01/2023 (in office), Visit date not found (telemedicine) Next Visit: 12/24/2023 If no future appointments scheduled, and last appointment is greater than a year ago, please schedule patient for a follow-up appointment Last date the medication was ordered: 09/30 12/23 Is this request for a controlled substance?No Urine Drug Screen:No results found for this or any previous visit. Patient Phone Numbers Labs: Lab Results Component Value Date/Time CREAT 1.0 12/08/2022 07:44 AM CREAT 1.1 05/15/2020 08:01 AM POTASSIUM 3.6 12/08/2022 07:44 AM POTASSIUM 3.8 05/15/2020 08:01 AM TSH 1.60 01/16/2022 11:14 AM TSH 1.99 11/29/2016 12:00 AM LDLCALC 79 12/08/2022 07:44 AM LDLCALC 103 05/15/2020 08:01 AM LDLDIRECT NOT APPLICABLE 05/15/2020 08:01 AM ALT 19 12/08/2022 07:44 AM ALT 33 05/15/2020 08:01 AM HGBA1C 6.1 (H) 08/27/2023 07:40 AM HGBA1C 6.0 (H) 05/17/2020 07:47 AM documented in this encounter Plan of Treatment Upcoming Encounters Date Type Department Care Team (Late st Contact Info) Description 12/15/2023 3:00 PM EDT Office Visit [facility] [address] [place] [address] OctoberJustino MD [address] [place] [address] 12/24/2023 9:30 AM EDT Office Visit Cardiology, [facility] [address] [facility] [place] [address] Dinesh Scherer, [address] [place] [address] 01/07/2024 9:15 AM EDT Telemedicine Otolaryngology, [facility]man [address] [address] Nadine Sepulveda MD [address] [place] [address] 03/29/2024 9:00 AM EDT Office Visit Sleep Disorders Ctr [facility] [address] [place] [phone] Gill Lopez CRNP [address] [place] [address] 08/03/2024 9:20 AM EST Office Visit [facility] [address] [place] [address] Aaron Stevens MD [address] [place] [address] Scheduled Procedures Name Priority Associated Diagnoses Date/Ti [...] as of this encounter Visit Diagnoses Diagnosis Typical atrial flutter (HCC) Atrial flutter documented in this encounter Advance Directives Documents on File Type Date Recorded Patient Spring Up Supervisor Expl anation Advance Directives and Living Will 10/06/2023 signed on 10/25/2018 ADVANCE DIRECTIVE / LIVING WILL Power of Site Specialist 10/06/2023 signed on 10/25/2018 POWER OF WORKDAY CONSULTANT [facility] Care Teams Insurance Executive Relationship Specialty Start Date End Date Aaron Stevens MD [address] [place] [address] PCP - General Family Medicine 07/29/23 documented as of this encounter
--- OUTSIDE RECORDS SUMMARY | 2023-12-19 11:41 | External Medical Summary | Summary of Care ---
Author Name Unknown Organization [facility] Address [address] [facility] [place] [address] Phone [phone] Care Team Providers Care Steel Detailer Name Role Phone Aaron Stevens MD Primary Care Provider +1- [phone] Reason for Visit * Reason Onset Date Comments Cardiac Rehab 10/02/2023 Encounter Details Date Type Department Care Team (Late st Contact Info) Description 10/02/2023 Telephone Cardiology, [facility] [address] [place] [address] Germán Arellano, [address] [place] [address] Cardiac Rehab Allergies No known active allergiesdocumented as of this encounter (statuses as of 10/08/2023) Medications Medication Sig Dispensed Refills Start Date [...] as of this encounter (statuses as of 10/08/2023) Active Problems Problem Noted Date Diagnosed Date [...] as of this encounter (statuses as of 10/08/2023) Resolved Problems Problem Noted Date Diagnosed Date Resolved Date 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 05/11/2020 documented as of this encounter (statuses as of 10/08/2023) Immunizations Name Administration Dates Next Due COVID-19 mRNA, LNP-s, No Pre serve, 2-Dose Series ([place]) 05/29/2021,09/24/2020,08/28/2020 Pneumococcal Polysaccharide PPV23 (Pneumovax) 04/30/2012 Season [...] encounter Miscellaneous Notes * Telephone Encounter - Christina Dean RN - 10/08/2023 11:07 AM EDT MyChart sent to patient from alternate encounter. * Telephone Encounter - Kae Pineda OSA - 10/07/2023 5:02 PM EDT Person calling: Burton Relationship to patient: self Number to return call: [phone] Reason for call: return call Pharmacy: Provider [...] to perform cardiac rehab to home is [facility] where order/information was sent. * Telephone Encounter - Roxana Morfin OSA - 10/06/2023 9:56 AM EDT Pt called he wants to go close to his house for cardiac rehab Jeff Please fax order to [phone] Thank you ANA Estrada * Telephone Encounter - Carlos Mnauel Leroy RN - 10/02/2023 11:57 AM EDT LOMN and records faxed to [facility] cardiac rehab documented in this encounter Plan of Treatment Upcoming Encounters Date Type Department Care Team (Late st Contact Info) Description 10/15/2023 11:00 AM EDT Office Visit Otolaryngology, [facility] [address] [address] Nadine Sepulveda MD [address] [place] [address] 11/24/2023 10:00 AM EDT Office [facility]iology, [facility] [place] [address] Macie Emery CRNP [address] [place] [address] 12/24/2023 9:30 AM EDT Office Visit Cardiology, [facility] [place] [address] Dinesh Scherer DO [address] [place] [address] 03/29/2024 9:00 AM EDT Office Visit Sleep Disorders [facility] [address] [facility] [place] [phone] Gill Lopez CRNP [address] [place] [address] 08/03/2024 9:20 AM EST Office Visit [facility] [address] [place] [phone] Aaron Stevens MD [address] [place] [address] Scheduled Procedures Name Priority Associated Diagnoses Date/Ti me COLONOSCOPY FLEXIBLE PROXIMA L DIAGNOSTIC Recall History of colonic polyps Health Maintenance Due Date Last Done Comments Pneumococcal Vaccine: 65+ Years (2 of 2 - PCV) 04/30/2013 04/30/2012 COVID-19 Vaccine (2022- season) 2023 05/29/2021, 09/24/2020, 08/28/2020 GFR 12/09/2023 [...] Documents on File Type Date Recorded Patient Leave Specialist Expl anation Advance Directives and Living Will 10/06/2023 signed on 10/25/2018 ADVANCE DIRECTIVE / LIVING WILL Power of Hot Knife Cutter 10/06/2023 signed on 10/25/2018 POWER OF COLD ROLLING SUPERVISOR D[facility]ABLE HE[facility] CARE Care Teams Steel Detailer Relationship Specialty Start Date End Date Aaron Stevens MD [address] [place] [facility] [place] [address] PCP - General Family Medicine 07/29/23 documented as of this encounter
--- OUTSIDE RECORDS SUMMARY | 2023-12-19 11:41 | External Medical Summary | Summary of Care ---
Author Name Unknown Organization [facility] Address [address] [facility] [address] Phone [phone] Care Team Providers Care Spaghetti Press Helper Name Role Phone Aaron Stevens MD Primary Care Provider +1- [phone] Reason for Visit * Reason Comments Rash Rash on the left arm . Is not sure if it is from poison [place] or perhaps an allergy. Is outside a lot and perhaps got it from doing yard work. Has been there for at least 2 weeks. Encounter Details Date Type Department Care Team (Late st Contact Info) Description 12/07/2023 11:40 AM EDT Office Visit General Internal Medicine [facility] [address] [place] [address] Madhuri Xiao MD [address] [facility] [place] [address] Irritant contact dermatitis due to plants, except food*; HTN, goal below 140/90; S/P ablation of atrial flutter; Prediabetes Allergies No known active allergiesdocumented as of this encounter (statuses as of 12/07/2023) Medications Medication Sig Dispensed Refills Start Date End Date Status Metamucil Smooth Texture 58.6 % Oral Powder (Psyllium) Take by mouth 3 times a day. One scoop in 8 ounces of water, up to three times a day. 05/11/2020 Active One-A-Day Adult VitaCraves+DHA Oral Tablet Chewable Take by mouth. Activ e Eliquis 5 MG Oral Tablet (Apixaban)Indicatio ns:Typical atrial flutter (HCC) TAKE 1 TABLET BY MOUTH TWICE DAILY every morning and before bedtime 180 Tablet 3 12/23/2022 Active hydroCHLOROthiazide 25 MG Oral Tablet (Hydrodiuril)Indica tions:PAF [...] 3 05/03/2023 Active Lisinopril 40 MG Oral TabletIndications:H TN, goal below 140/90 TAKE 1 TABLET BY MOUTH EVERY MORNING 90 Tablet 1 08/10/2023 Active Clopidogrel Bisulfate 75 MG Oral Tablet (Plavix) Take 1 Tablet by mouth in the morning. 34 Tablet 11 10/01/2023 Active Triamcinolone Acetonide 0.5 % External Cream (Aristocort)Indicat ions:Irritant contact dermatitis due to plants, except food Apply topically to affected area 2 times a day. To affected area. 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 05/11/2020 documented as of this encounter (statuses as of 12/07/2023) Immunizations Name Administration Dates Next Due COVID-19 [...] Passive Smoke Exposure: Past Smokeless Tobacco: Never Tobacco Cessation:Counseling Given: Not [...] Sign Reading Time Taken Comments Blood Pressure 116/60 12/07/2023 11:45 AM EDT Pulse 49 12/07/2023 11:45 AM EDT Temperature 36.1 C (97 F) 12/07/2023 11:45 AM EDT Respiratory Rate 16 12/07/2023 11:45 AM EDT Oxygen Saturation 98% 12/07/2023 11:45 AM EDT Inhaled Oxygen Concentration - - Weight 89.4 kg (197 lb) 12/07/2023 11:45 AM EDT Height - - Body Mass Index 29.08 10/15/2023 10:09 AM EDT documented in this encounter Progress Notes * Madhuri Xiao MD - 12/07/2023 11:54 AM EDT Images from the original note were not included. History of Present Illness Burton Rosas is a 78 year old male that presents for Rash (Rash on the left arm. Is not sure if it is from poison [place] or perhaps an allergy. Is outside a lot and perhaps got it from doing yard work. Has been there for at least 2 weeks. ) He has stent placed 1 month ago and on plavix and wonder if it's drug reaction Rash This is a new problem. The current episode started 1 to 4 weeks ago (2 weeks). The problem has beenwaxing and waning since onset. The affected locations include the left arm, left wrist, right arm and right wrist. The rash is characterized by blistering, redness and itchiness. He was exposed to plant contact (been working in yard). Pertinent negatives include no congestion, cough, fatigue, nail changes, rhinorrhea or shortness of breath. Past treatments include moisturizer and anti-itch cream.The treatment provided no relief. There is no history of allergies, asthma or eczema. Physical Exam Vitals: 12/07/23 1145 Temp: 36.1 C (97 F) Pulse: 49 Resp: 16 SpO2: 98% BP: 116/60 Physical Exam Constitutional: Appearance: Normal appearance. He is normal weight. Cardiovascular: Rate and Rhythm: Normal rate and regular rhythm. Pulmonary: Effort: No respiratory distress. Breath sounds: No wheezing. Musculoskeletal: General: No swelling or tenderness. Skin: Findings: Rash (scattered erythematous papules and looked kiek hives vs early blistery lesions in both forearms) present. Neurological: Mental Status: He is alert. I have reviewed the following results: CMP and Hemoglobin A1C Assessment and Plan Irritant contact dermatitis due to plants, except food Start OTC claritin daily - 2 weeks Good emollient like eucerin - Triamcinolone Acetonide 0.5 % External Cream (Aristocort); Apply topically to affected area 2 times a day. To affected area. If no better can do a short course of steroid HTN, goal below 140/90 S/P ablation of atrial flutter Prediabetes Wrap-Up Time: I spent a total of 20-29 minutes (exact time 28 mins) on the date of service in preparation, delivery, and documentation of the care provided to Burton Rosas excluding any time spent in the performance of separately billed services. documented in this encounter Plan of Treatment Upcoming Encounters Date Type Department Care Team (Late st Contact Info) Description 12/24/2023 9:30 AM EDT Office Visit Cardiology, [facility] [address] [place] [address] Dinesh Scherer, [address] [place] [address] 01/07/2024 9:15 AM EDT Telemedicine Otolaryngology, [facility] Rahman [address] [place] [address] Nadine Sepulveda MD [address] [place] [address] 03/29/2024 9:00 AM EDT Office Visit [facility] [address] [place] [phone] Gill Lopez CRNP [address] [place] [address] 08/03/2024 9:20 AM EST Office Visit [facility] [address] [place] [address] Aaron Stevens MD [address] [place] [address] Scheduled Procedures Name Priority Associated Diagnoses Date/Ti [...] as of this encounter Visit Diagnoses Diagnosis Irritant contact dermatitis due to plants, except food- Primary Contact dermatitis and other eczema due to plants (except food) HTN, goal below 140/90 Unspecified essential hypertension S/P ablation of atrial flutter Other postprocedural status Prediabetes Other abnormal glucose documented in this encounter Advance Directives Documents on File Type Date Recorded Patient Manager Of Quality Expl anation Advance Directives and Living Will 10/06/2023 signed on 10/25/2018 ADVANCE DIRECTIVE / LIVING WILL Power of Transit Vehicle Inspector 10/06/2023 signed on 10/25/2018 POWER OF NURSE'S AIDES TEACHER DURABLE [facility] CARE Care Teams Spaghetti Press Helper Relationship Specialty Start Date End Date Aaron Stevens MD [address] [place] [address] PCP - General Family Medicine 07/29/23 documented as of this encounter
--- OUTSIDE RECORDS SUMMARY | 2023-12-19 11:41 | External Medical Summary | Summary of Care ---
Author Name Unknown Organization [facility] Address [address] [place] [facility] [place] [address] Phone [phone] Care Team Providers Care Double Bass Player Name Role Phone Aaron Stevens MD Primary Care Provider +1- [phone] Reason for Visit * Reason Onset Date Comments Advice 12/11/2023 Encounter Details Date Type Department Care Team (Late st Contact Info) Description 12/11/2023 Telephone [facility] [address] [place] [facility] [place] [phone] Aaron Stevens MD [address] [place] [address] Advice Allergies No known active allergiesdocumented as of [...] encounter Miscellaneous Notes * Telephone Encounter - Yoli Thompson OSA - 12/14/2023 9:39 AM EDT Done. 12/14/2023 * Telephone Encounter - Merary Wharton OSA - 12/11/2023 3:28 PM EDT 1. When were you seen for this problem? 12.07.23 2. What provider did you see for this problem? Rash (Poison [place]) 3. What medications are you presently taking? Triamcinolone Cream 4. What is it that is no better? Please refer to Call Details. Pt requested a follow up appt but no appts available. Please reach out to pt to advise. Thank You! documented in this encounter Plan of Treatment Upcoming Encounters Date Type Department Care Team (Late st Contact Info) Description 12/15/2023 3:00 PM EDT Office Visit [facility] [address] [place] [phone] Justino Mcneil MD [address] [place] [address] 12/24/2023 9:30 AM EDT [facility] [address] [place] [address] Dinesh Scherer DO [address] [place] [address] 01/07/2024 9:15 AM EDT Telemedicine Otolaryngology, Sloan Rahman [address] [place] [address] Nadine Sepulveda MD [address] [place] [address] 03/29/2024 9:00 AM EDT Office Visit [facility] Disorders Ctr [facility] [address] [place] [phone] Gill Lopez CRNP [address] [place] [address] 08/03/2024 9:20 AM EST Office Visit [facility] [address] [place] [address] Aaron Stevens MD [address] [place] [address] Scheduled Procedures Name Priority Associated Diagnoses [...] Documents on File Type Date Recorded Patient Lumber Press Operator Expl anation Advance Directives and Living Will 10/06/2023 signed on 10/25/2018 ADVANCE DIRECTIVE / LIVING WILL Power of Flame Cutting Machine Operator 10/06/2023 signed on 10/25/2018 POWER OF WORKERS COMPENSATION ANALYST DURABLE [facility] CARE Care Teams Double Bass Player Relationship Specialty Start Date End Date Aaron Stevens MD [address] [place] [address] PCP - General Family Medicine 07/29/23 documented as of this encounter
--- OUTSIDE RECORDS SUMMARY | 2023-12-19 11:41 | External Medical Summary | Summary of Care ---
Author Name Unknown Organization [facility] Address [address] [facility] [place] [address] Phone [phone] Care Team Providers Care Tile Presser Name Role Phone Aaron Stevens MD Primary Care Provider +1- [phone] Encounter Details Date Type Department Care Team (Late st Contact Info) Description 07/15/2023 Result Scan Unspecified Department <No scans attached> Allergies No known active allergiesdocumented as of this encounter (statuses as of 12/16/2023) Medications Medication Sig Dispensed Refills Start Date End Date Status Metamucil Smooth Texture 58.6 % Oral Powder (Psyllium) Take by mouth 3 times a day. One scoop in 8 ounces of water, up to three times a day. 05/11/2020 Active One-A-Day Adult VitaCraves+DHA Oral Tablet Chewable Take by mouth. 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 05/11/2020 documented as of this encounter (statuses as of 12/16/2023) Immunizations Name Administration Dates Next Due COVID-19 mRNA, LNP-s, No Pre serve, 2-Dose Series (Mozes) 05/29/2021,09/24/2020,08/28/2020 Pneumococcal Polysaccharide PPV23 (Pneumovax) 04/30/2012 Season [...] Visit Cardiology, [facility] [address] [place] [address] Dinesh Scherer, [address] [place] [address] 01/07/2024 9:15 AM EDT Telemedicine Otolaryngology, Sloan Rahman [address] [place] [address] Nadine Sepulveda MD [address] [place] [address] 03/29/2024 9:00 AM EDT Office Visit Sleep Disorders [facility] [place] [phone] Gill [facility] [place] [address] 05/12/2024 3:45 PM EST Office Visit [facility] [address] [place] [address] Tyra Alonzo MD [address] [place] [address] 08/03/2024 9:20 AM EST Office Visit [facility] [address] [place] [phone] Aaron Stevens MD [address] [place] [address] Scheduled Procedures Name Priority Associated Diagnoses Date/Ti [...] Not on filedocumented as of this encounter Procedures Procedure Name Priority Date/Time Associated Diagnosis Comments RADIOLOGY SCANNED RESULT 07/15/2023 documented in this encounter Results * RADIOLOGY SCANNED RESULT (07/15/2023) 07/15/2023 No Physician Data Unknown DIAGNOSTIC RAD IOLOGY SERVICES documented in this encounter Advance Directives Documents on File Type Date Recorded Patient Director [place] Sales Expl anation Advance Directives and Living Will 10/06/2023 signed on 10/25/2018 ADVANCE DIRECTIVE / LIVING WILL Power of Legal Compliance Officer 10/06/2023 signed on 10/25/2018 POWER OF TERRITORY OUTSIDE SALES MANAGER [facility] Care Teams Tile Presser Relationship Specialty Start Date End Date Aaron Stevens MD [address] [place] [address] PCP - General Family Medicine 07/29/23 documented as of this encounter
--- OUTSIDE RECORDS SUMMARY | 2023-12-19 11:41 | External Medical Summary | Summary of Care ---
Author Name Unknown Organization [facility] Address [address] [facility] [place] [address] Phone [phone] Care Team Providers Care Body And Fender Mechanic Name Role Phone Aaron Stevens MD Primary Care Provider +1- [phone] Reason for Visit * Reason Onset Date Comments Hospital Follow-Up Pt here today for a hospital follow up Hospital Follow-Up 09/25/2023 Hospital Follow-Up 10/12/2023 Encounter Details Date Type Department Care Team (Late st Contact Info) Description 09/24/2023 3:00 PM EDT Office Visit [facility] [address] [place] [address] Aaron Stevens MD [address] [place], [place] [id number] History of non-ST elevation myocardial infarction (NSTEMI)*; Prediabetes; HTN, goal below 140/90; Hospital discharge follow-up Allergies No known active allergiesdocumented as of this encounter (statuses as of 10/12/2023) Medications Medication Sig Dispensed Refills Start Date [...] EVERY MORNING 90 Tablet 1 08/10/2023 Active Brilinta 90 MG Oral Tablet (Ticagrelor) Take 1 Tablet by mouth in the morning and 1 Tablet before bedtime. 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 05/11/2020 documented as of this encounter (statuses as of 10/12/2023) Immunizations Name Administration Dates Next Due COVID-19 [...] Sign Reading Time Taken Comments Blood Pressure 100/62 09/24/2023 3:14 PM EDT Pulse 56 09/24/2023 3:14 PM EDT Temperature 36.2 C (97.1 F) 09/24/2023 3:14 PM ED T Respiratory Rate 18 09/24/2023 3:14 PM EDT Oxygen Saturation 96% 09/24/2023 3:14 PM EDT Inhaled Oxygen Concentration - - Weight 89.5 kg (197 lb 6.4 oz) 09/24/2023 3:14 P M EDT Height - - Body Mass Index 29.15 07/29/2023 9:57 AM EST documented in this encounter Progress Notes * Aaron Stevens MD - 10/12/2023 10:34 PM EDT Subjective: Burton Rosas is a 78 year old male here today for Chief Complaint Patient presents with Hospital Follow-Up Pt here today for a hospital follow up Hospital Follow-Up Hospital Follow-Up Pt presents for hospital follow up. Admitted to [facility] 09/16/23 - 09/18/23 after failing outpt stress test and being found to have a NSTEMI. Had cath and PCI to ramus intermedius. Diffuse CAD. Is tolerating med changes and feeling better. Has cardiology follow up and will discuss cardiac rehab with them. No new concerns. Past Medical History: Diagnosis Date Aortic root [...] performed by Catracho Ayoub MD at [facility] COLONOSCOPY, DIAGNOSTIC (RECTUM) 10/17/2022 benign adenomatous polyp, repeat 5 yrs / COLONOSCOPY FLEXIBLE PROXIMAL DIAGNOSTIC performed by Rad Puentes MD at [facility] TURP, RESIDUAL OR RECURRENT, COMPLETE 04/11/2022 Review [...] facility-administered medications for this visit. Objective: BP 100/62 | Pulse 56 | Temp 36.2 C (97.1 F) (Infrared ) | Resp 18 | Wt 89.5 kg (197 lb 6.4 oz) | SpO2 96% | BMI 29.15 kg/m | BSA 2.09 m GEN: NAD HEENT: Benign NECK: Supple with no LAD, TM, JVD CHEST: CTA B CV: RRR ABD: Soft, NT/ND, No HSM, NABS EXT: No c,c,e Assessment and Plan: History of non-ST elevation myocardial infarction (NSTEMI) (Primary) Prediabetes - HEMOGLOBIN A1C; Future; Expected date: 09/25/2023 - BASIC METABOLIC PANEL; Future; Expected date: 09/25/2023 HTN, goal below 140/90 - BASIC METABOLIC PANEL; Future; Expected date: 09/25/2023 Hospital discharge follow-up - DISCH MED RECON CUR MED LIS -continue current meds -follow up with cardiology. -call for new or worsening symptoms Aaron Stevens MD documented in this encounter Nursing Notes * Eveline Agudelo LPN - 09/24/2023 3:13 PM EDT Chief Complaint Patient presents with Hospital Follow-Up Pt here today for a hospital follow up documented in this encounter Plan of Treatment Upcoming Encounters Date Type Department Care Team (Late st Contact Info) Description 10/15/2023 11:00 AM EDT [facility] [place] [address] [place] [address] Nadine Sepulveda MD [address] [place] [address] 11/24/2023 10:00 AM EDT Office Visit Cardiology, [facility] [address] [facility] [place] [address] Macie Emery CRNP [address] [place] [address] [place] [address] 12/24/2023 9:30 AM EDT Office Visit Cardiology, [facility] [address] [place] [address] Dinesh Scherer DO [address] [place] [address] 03/29/2024 9:00 AM EDT Office Visit Sleep Disorders [facility] [address] [place] [phone] Gill Lopez CRNP [address] [place] [address] 08/03/2024 9:20 AM EST Office Visit [facility] [address] [place] [facility] [place] [address] Aaron Stevens MD [address] [facility] [place] [id number] Scheduled Orders Name Type Priority Associated Diagnoses Orde r Schedule HEMOGLOBIN A1C Lab Routine Prediabetes Expected: 09/25/2023, Expires: 09/23/2024 BASIC METABOLIC PANEL Lab Routine Prediabetes HTN, goal below 140/90 Expected: 09/25/2023, Expires: 09/23/2024 Scheduled Procedures Name Priority Associated Diagnoses Date/Ti [...] as of this encounter Visit Diagnoses Diagnosis History of non-ST elevation myocardial infarction (NSTEMI)- Primary Old myocardial infarction Prediabetes Other abnormal glucose HTN, goal below 140/90 Unspecified essential hypertension Hospital discharge follow-up Other follow-up examination documented in this encounter Advance Directives Documents on File Type Date Recorded Patient Jacquard Loom Heddles Tier Expl anation Advance Directives and Living Will 10/06/2023 signed on 10/25/2018 ADVANCE DIRECTIVE / LIVING WILL Power of Nail Professional 10/06/2023 signed on 10/25/2018 POWER OF AUTOMATION CONSULTANT [facility] Care Teams Body And Fender Mechanic Relationship Specialty Start Date End Date Aaron Stevens MD [address] [place] [address] PCP - General Family Medicine 07/29/23 documented as of this encounter"
--- OUTSIDE RECORDS SUMMARY | 2023-12-19 11:41 | External Medical Summary | Summary of Care ---
Author Name Unknown Organization [facility] Address [address] [facility] [place] [address] Phone [phone] Care Team Providers Care Certified Hand Therapist Name Role Phone Aaron Stevens MD Primary Care Provider +1- [phone] Reason for Visit * Reason Onset Date Comments Information 10/13/2023 Encounter Details Date Type Department Care Team (Late st Contact Info) Description 10/13/2023 Telephone Cardiology, [facility] [address] [place] [address] Gera Aviles, [address] [place] [address] Information Allergies No known active allergiesdocumented as of this encounter (statuses as of 10/14/2023) Medications Medication Sig Dispensed Refills Start Date [...] as of this encounter (statuses as of 10/14/2023) Active Problems Problem Noted Date Diagnosed Date [...] as of this encounter (statuses as of 10/14/2023) Resolved Problems Problem Noted Date Diagnosed Date Resolved Date 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 Discussed the critical need to stay on Eliquis and Plavix. It is standard of care for patients needing A/C for PAF and recent stents. He'll need to be on Plavix at least 6 months and aspirin there after. If bleeding continues then D/C of Eliquis and going with DAPT for atleast 6 months. Patient seeing ENT tomorrow. * Telephone Encounter - Gisele Nuñez LPN - 10/13/2023 2:09 PM EDT Pt is having frequent nose bleeds on plavix and eliquis. Mild in severity, when he blows his nose or sneezes bright red blood is present. Pt is asking if he can lower his dose of these medications. Previously on Brillinta, however switched medications d/t cost. He received a drug-eluting stent into the ramus artery 09/17/23. IFR of the LAD showed a borderline lesion not to be hemodynamically significant. documented in this encounter Plan of Treatment Upcoming Encounters Date Type Department Care Team (Late st Contact Info) Description 10/15/2023 11:00 AM EDT Office [place] [facility] [place] [address] [place] [address] Nadine Sepulveda MD 132 [facility] [place] [address] 11/24/2023 10:00 AM EDT Office Visit Cardiology, [facility] [address] [place] [address] Macie Emery CRNP [address] [facility] [place] [address] 12/24/2023 9:30 AM EDT Office Visit Cardiology, [facility] [address] [place] [address] Dinesh Scherer, [address] [place] [address] 03/29/2024 9:00 AM EDT Office Visit [facility] [address] [place] [phone] Gill Lopez CRNP [address] [place] [address] 08/03/2024 9:20 AM EST Office Visit [facility] [address] [place] [address] Aaron Stevens MD [address] [place] [address] Scheduled Procedures Name Priority Associated Diagnoses Date/Ti [...] Documents on File Type Date Recorded Patient Registered Nurse Maternity Expl anation Advance Directives and Living Will 10/06/2023 signed on 10/25/2018 ADVANCE DIRECTIVE / LIVING WILL Power of Aerial Crop Duster 10/06/2023 signed on 10/25/2018 POWER OF WIRE COILER MACHINE OPERATOR DURABLE HEALTH CARE Care Teams Certified Hand Therapist Relationship Specialty Start Date End Date Aaron Stevens MD [address] [place] [address] PCP - General Family Medicine 07/29/23 documented as of this encounter
--- OUTSIDE RECORDS SUMMARY | 2023-12-19 11:41 | External Medical Summary | Summary of Care ---
Author Name Unknown Organization [facility] Address [address] [facility] [place] [address] Phone [phone] Care Team Providers Care Tattoo Identifier Name Role Phone Aaron Stevens MD Primary Care Provider +1- [phone] Reason for Visit * Reason Onset Date Comments Cardiac Rehab 10/02/2023 Encounter Details Date Type Department Care Team (Late st Contact Info) Description 10/02/2023 Telephone Cardiology, [facility] [address] [place] [address] Germán Arellano, [address] [place] [address] Cardiac Rehab Allergies No known active allergiesdocumented [...] mRNA, LNP-s, No Pre serve, 2-Dose Series (NatSent) 05/29/2021,09/24/2020,08/28/2020 Pneumococcal Polysaccharide PPV23 (Pneumovax) 04/30/2012 Season [...] to perform cardiac rehab to home is [facility] where order/information was sent. * Telephone Encounter - Roxana Morfin OSA - 10/06/2023 9:56 AM EDT Pt called he wants to go close to his house for cardiac rehab Jfef Please fax order to [phone] Thank you ANA Estrada * Telephone Encounter - Carlos Manuel Leroy RN - 10/02/2023 11:57 AM EDT LOMN and records faxed to [facility] cardiac rehab documented in this encounter Plan of Treatment Upcoming Encounters Date Type Department Care Team (Late st Contact Info) Description 10/15/2023 11:00 AM EDT Office Visit Otolaryngology, Sloan Rahman [address] [place] [address] Nadine Sepulveda MD [address] [place] [address] 11/24/2023 10:00 AM EDT Office Visit Cardiology, [facility] [address] [place] [address] Macie Emery CRNP [address] [place] [address] [place] [address] 12/24/2023 9:30 AM EDT Office Visit Cardiology, [facility] [address] [place] [address] Dinesh Scherer DO [address] [place] [address] 03/29/2024 9:00 AM EDT Office Visit [facility] Disorders [facility] [address] [place] [phone] Gill Lopez CRNP [address] [place] [address] 08/03/2024 9:20 AM EST Office Visit [facility] [address] [place] [phone] Aaron Stevens MD [address] [place] [address] Scheduled Procedures Name Priority Associated Diagnoses Date/Ti [...] Documents on File Type Date Recorded Patient Rn Ortho Expl anation Advance Directives and Living Will 10/06/2023 signed on 10/25/2018 ADVANCE DIRECTIVE / LIVING WILL Power of Special Agent Secret Service 10/06/2023 signed on 10/25/2018 POWER OF MANAGER [facility] Care Teams Tattoo Identifier Relationship Specialty Start Date End Date Aaron Stevens MD [address] [place] [address] PCP - General Family Medicine 07/29/23 documented as of this encounter
--- OUTSIDE RECORDS SUMMARY | 2023-12-19 11:41 | External Medical Summary | Summary of Care ---
Author Name Unknown Organization [facility] Address [address] [place] [address] Phone [phone] Care Team Providers Care Accounts Receivable Assistant Name Role Phone Aaron Stevens MD Primary Care Provider +1- [phone] Reason for Referral * Evaluate & Treat - Unlimited Visits (Within 10 days (routine)) - Authorized Specialty Diagnoses / Procedures Referred By Rocio malone Referred To Contact Neurology Diagnoses Subjective vision disturbance Robson Suarez MD [address] [place] [address] Referral ID Status Reason Start Date Expiration Date Visits Requested Visits Authorized [id number] Authorized Specialty Services Required 12/17/2023 999 999 Question Answer Referral Priority Within 10 days (routine) Where should this appointment be scheduled? [facility] Is this referral being placed for insurance purposes ONLY No, patient needs appointment [facility] NEUROLOGY REFERRAL QUESTIONS Headache Has [...] Diagnoses Change in vision Justino Mcneil MD [address] [place] [id number] Referral ID Status Reason Start Date Expiration Date Visits Requested Visits Authorized [id number] Authorized Specialty Services Required 12/15/2023 999 999 Encounter Details Date Type Department Care Team (Late st Contact Info) Description 12/17/2023 2:00 PM EDT Office Visit [facility] Eye [facility] [address] [place] [address] Robson Suarez MD [address] [place] [address] Subjective vision disturbance*; Visual distortions of shape [...] mRNA, LNP-s, No Pre serve, 2-Dose Series (HealthyTweet) 05/29/2021,09/24/2020,08/28/2020 Pneumococcal Polysaccharide PPV23 (Pneumovax) 04/30/2012 Season [...] documented in this encounter Progress Notes * Robson Suarez MD - 12/17/2023 2:19 PM EDT 12/17/2023 URGENT CARE CLINIC NOTE HPI: Burton Rosas is a 78 year old pt who presents to [facility]. He is complaining of a [...] performed by Catracho Ayoub MD at ENDOSCOPY [facility] COLONOSCOPY, DIAGNOSTIC (RECTUM) 10/17/2022 benign adenomatous polyp, repeat 5 yrs / COLONOSCOPY FLEXIBLE PROXIMAL DIAGNOSTIC performed by Rad Puentes MD at ENDOSCOPY [facility] TURP, RESIDUAL OR RECURRENT, COMPLETE 04/11/2022 [...] Left Ishihara 05/09 12/07 Keratometry (Automated) K1 Mattoon K2 Mattoon Right 43.50 113 44.25 23 Left 43.75 65 44.25 155 Refraction Manifest Refraction (Auto) Sphere Cylinder Mattoon Right +1.00 +0.75 018 Left -0.50 +0.50 [...] 12/21/2023 8:00 AM EDT Office Visit Neurology [facility] [address] [place] [address] Earnestine Hartley PA-C [address] [place] [address] [place] [address] 12/24/2023 9:30 AM EDT Office Visit Cardiology, [facility] 132 [place] [address] Dinesh Scherer, 132 [place] [address] 01/07/2024 9:15 AM EDT Telemedicine Otolaryngology, Laureano Rahmanwn [address] [place] [address] Nadine Sepulveda MD 132 [place] [address] 02/02/2024 10:30 AM EDT Office Visit [facility] Eye [facility] [address] [place], [place] [phone] Robson Suarez MD [address] [place] [address] 03/29/2024 9:00 AM EDT Office Visit [facility] Disorders [facility]tr [facility] 132 [facility] [place] [phone] Gill Lopez CRNP [address] [place] [address] 05/12/2024 3:45 PM EST Office Visit [facility] [address] [place] [address] Tyra Alonzo MD [address] [place] [address] 08/03/2024 9:20 AM EST Office Visit [facility] [address] [place] [address] Aaron Stevens MD [address] [place] [address] Scheduled Orders Name Type Priority Associated Diagnoses [...] Documents on File Type Date Recorded Patient Teacher Selection Specialist Expl anation Advance Directives and Living Will 10/06/2023 signed on 10/25/2018 ADVANCE DIRECTIVE / LIVING WILL Power of Starch Treating Assistant 10/06/2023 signed on 10/25/2018 POWER OF PROGRAM [facility] Care Teams Accounts Receivable Assistant Relationship Specialty Start Date End Date Aaron Stevens MD [address] [facility] [place] [address] PCP - General Family Medicine 07/29/23 documented as of this encounter
--- OUTSIDE RECORDS SUMMARY | 2023-12-19 11:42 | External Medical Summary | Summary of Care ---
Author Name Unknown Organization [facility] Address [address] [place] [facility] [place] [address] Phone [phone] Care Team Providers Care Wet Inspector Optical Glass Name Role Phone Aaron Stevens MD Primary Care Provider +1- [phone] Reason for Visit * Reason Onset Date Comments Hospital Follow-Up 09/18/2023 Encounter Details Date Type Department Care Team (Late st Contact Info) Description 09/18/2023 Telephone General Internal Medicine [facility] [address] [place] [address] Aaron Stevens MD [address] [place], [place] [phone] Hospital Follow-Up Allergies No known active allergiesdocumented as of this encounter (statuses as of 09/18/2023) Medications Medication Sig Dispensed Refills Start Date [...] as of this encounter (statuses as of 09/18/2023) Active Problems Problem Noted Date Diagnosed Date [...] as of this encounter (statuses as of 09/18/2023) Resolved Problems Problem Noted Date Diagnosed Date Resolved Date 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 Arellano. * Telephone Encounter - Dwain Dash RN - 09/18/2023 3:27 PM EDT Patient discharged from [facility] 09/18/23. Cardiology consulted and recommends Outpatient cardiology follow-up in 2 to 4 weeks. Please assist with scheduling this appointment. Thank you documented in this encounter Plan of Treatment Upcoming Encounters Date Type Department Care Team (Late st Contact Info) Description 09/24/2023 3:00 PM EDT Office Visit [facility] [address] [facility] [phone] Aaron Stevens MD [address] [place] [address] 10/02/2023 10:00 AM EDT Office Visit Cardiology, [facility] [place] [address] Germán Arellano DO [address] [place] [address] 10/15/2023 11:00 AM EDT Office Visit Otolaryngology, Sloan Rahmna [address] [place] [address] Nadine Sepulveda MD [address] [place] [address] 11/24/2023 10:00 AM EDT Office Visit Cardiology, [facility] [place] [address] Macie Emery CRNP [address] [facility] [place] [address] 06/07/2024 10:30 AM EST Office Visit Sleep Disorders Ctr [facility] 132 [place] [phone] Gill Lopez CRNP [address] [place] [address] 08/03/2024 9:20 AM EST Office Visit [facility] [address] [place] [address] Aaron Stevens MD [address] [place] [address] Scheduled Procedures Name Priority Associated Diagnoses Date/Ti [...] filedocumented as of this encounter Care Teams Wet Inspector Optical Glass Relationship Specialty Start Date End Date Aaron Stevens MD [address] [place] [address] PCP - General Family Medicine 07/29/23 documented as of this encounter
--- OUTSIDE RECORDS SUMMARY | 2023-12-19 11:42 | External Medical Summary | Summary of Care ---
Author Name Unknown Organization [facility] Address [address] [facility] [place] [address] Phone [phone] Care Team Providers Care Nutrition Internship Name Role Phone Aaron Stevens MD Primary Care Provider +1- [phone] Reason for Visit * Reason Onset Date Comments Cardiac Rehab 10/02/2023 Encounter Details Date Type Department Care Team (Late st Contact Info) Description 10/02/2023 Telephone Cardiology, [facility] [address] [place] [address] Germán Arellano, [address] [place] [address] Cardiac Rehab Allergies No known active allergiesdocumented as of this encounter (statuses as of 10/02/2023) Medications Medication Sig Dispensed Refills Start Date [...] as of this encounter (statuses as of 10/02/2023) Active Problems Problem Noted Date Diagnosed Date [...] as of this encounter (statuses as of 10/02/2023) Resolved Problems Problem Noted Date Diagnosed Date Resolved Date 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 05/11/2020 documented as of this encounter (statuses as of 10/02/2023) Immunizations Name Administration Dates Next Due COVID-19 mRNA, LNP-s, No Pre serve, 2-Dose Series (EchoSign) 05/29/2021,09/24/2020,08/28/2020 Pneumococcal Polysaccharide PPV23 (Pneumovax) 04/30/2012 Season [...] AM EDT LOMN and records faxed to [facility] cardiac rehab documented in this encounter Plan of Treatment Upcoming Encounters Date Type Department Care Team (Late st Contact Info) Description 10/15/2023 11:00 AM EDT Office Visit Otolaryngology, Sloan Rahman [address] [place] [address] Nadine Sepulveda MD [address] [place] [address] 11/24/2023 10:00 AM EDT Office Visit Cardiology, [facility] [place] [address] Macie Emery CRNP 400 [facility] [place] [address] 12/24/2023 9:30 AM EDT Office Visit Cardiology, [facility] [address] [place] [address] Dinesh Scherer DO [address] [place] [address] 03/29/2024 9:00 AM EDT Office Visit [facility] Disorders Ctr [facility] [address] [facility] [place] [phone] Gill Lopez CRNP [address] [place] [address] 08/03/2024 9:20 AM EST Office Visit [facility] [address] [place] [facility] [phone] Aaron Stevens MD [address] [place] [address] Scheduled Procedures Name Priority Associated Diagnoses Date/Ti [...] filedocumented as of this encounter Care Teams Nutrition Internship Relationship Specialty Start Date End Date Aaron Stevens MD [address] [place] [address] PCP - General Family Medicine 07/29/23 documented as of this encounter
--- OUTSIDE RECORDS SUMMARY | 2023-12-19 11:42 | External Medical Summary | Summary of Care ---
Author Name Unknown Organization [facility] Address [address] [facility] [place] [address] Phone [phone] Care Team Providers Care Employment Educational Coord Name Role Phone Aaron Stevens MD Primary Care Provider +1- [phone] Encounter Details Date Type Department Care Team (Late st Contact Info) Description 09/17/2023 Result Scan Unspecified Department <No scans attached> [...] mRNA, LNP-s, No Pre serve, 2-Dose Series (bContext) 05/29/2021,09/24/2020,08/28/2020 Pneumococcal Polysaccharide PPV23 (Pneumovax) 04/30/2012 Season [...] Visit Otolaryngology, Sloan Rahman [address] [place] [address] Nadine Sepulveda MD [address] [place] [address] 11/24/2023 10:00 AM EDT Office Visit Cardiology, [facility] [address] [place] [address] Macie Emery CRNP 400 [facility] [place] [address] 06/07/2024 10:30 AM EST [facility] [address] [place] [phone] Gill Lopez CRNP [address] [place] [address] 08/03/2024 9:20 AM EST Office Visit [facility] [address] [facility] [place] [phone] Aaron Stevens MD [address] [place] [facility] [place] [address] Scheduled Procedures Name Priority Associated Diagnoses Date/Ti [...] Procedure Name Priority Date/Time Associated Diagnosis Comments CARDIAC CATH SCANNED RESULT 09/17/2023 CARDIAC CATH SCANNED RESULT 09/17/2023 documented in this encounter Results * CARDIAC CATH SCANNED RESULT (09/17/2023) 09/17/2023 No Physician Data Unknown CARD CATH * CARDIAC CATH SCANNED RESULT (09/17/2023) 09/17/2023 No Physician Data Unknown CARD CATH documented in this encounter Care Teams Employment Educational Coord Relationship Specialty Start Date End Date Aaron Stevens MD [address] [place] [address] PCP - General Family Medicine 07/29/23 documented as of this encounter
--- OUTSIDE RECORDS SUMMARY | 2023-12-19 11:42 | External Medical Summary | Summary of Care ---
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 [facility] Cardiac Rehabilitation Modality No Preference, either is clinically appropriate Identify Cardiac Risk Low to Moderate Risk Reason for Visit * Reason Comments Follow Up Encounter Details Date Type Department Care Team (Late st Contact Info) Description 10/01/2023 9:30 AM EDT Office Visit Cardiology, [facility] [address] [place] [address] Germán Arellano DO [address] [place] [address] S/P primary angioplasty with coronary stent*; Tachy-romario syndrome (HCC); S/P ablation of atrial flutter; PAF (paroxysmal atrial fibrillation) (HCC) Allergies No known active allergiesdocumented as of this encounter (statuses as of 10/01/2023) Medications Medication Sig Dispensed Refills Start Date [...] the morning. 34 Tablet 11 10/01/2023 Active Brilinta 90 MG Oral Tablet (Ticagrelor) Take 1 Tablet by mouth in the morning and 1 Tablet before bedtime. 0 10/01/2023 Discontinued (Patient preference/d iscontinuati on) documented as of this encounter (statuses as of 10/01/2023) Active Problems Problem Noted Date Diagnosed Date [...] as of this encounter (statuses as of 10/01/2023) Resolved Problems Problem Noted Date Diagnosed Date Resolved Date 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 05/11/2020 documented as of this encounter (statuses as of 10/01/2023) Immunizations Name Administration Dates Next Due COVID-19 [...] Sign Reading Time Taken Comments Blood Pressure 128/76 10/01/2023 9:23 AM EDT Pulse 60 10/01/2023 9:23 AM EDT Temperature - - Respiratory Rate 14 10/01/2023 9:23 AM EDT Oxygen Saturation - - Inhaled Oxygen Concentration - - Weight 89.8 kg (198 lb) 10/01/2023 9:23 AM EDT Height - - Body Mass Index 29.24 07/29/2023 9:57 AM EST documented in this encounter Progress Notes * Germán Arellano, - 10/01/2023 9:53 AM EDT Cardiology Outpatient Follow-up Burton Rosas is a 78 year old male who is seen for follow-up of abnormal stress test. HPI: This is a 78-year-old male patient with a history of atrial flutter and previous CTI ablation now with paroxysmally atrial fibrillation and a history of tachy- romario syndrome. He was referred for an exercise stress echocardiogram due to activity related throat discomfort. The patient had a markedly abnormal stress and was referred for cardiac catheterization which showed a high-grade stenosis of the ramus intermediate. He received a drug-eluting stent into the ramus artery. IFR of the LAD showeda borderline lesion not to be hemodynamically significant. I saw the patient follow-up today. In general things are going well. One of his problems however, is that he can not afford the Brilinta and asked if he could be switched to another medicine such as Plavix which I think is reasonable. He has not had a return of his throat discomfort with activity but has not refer returned to his usual exercise program. I think he would be a good candidate for cardiac rehab and I have made the referral. 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 Past Surgical History: Procedure Laterality Date AMPUTATION OF FINGER/THUMB Left 08/29/2020 partial with I&D repair of thumb/index finger COLONOSCOPY, DIAGNOSTIC (RECTUM) 06/03/2019 adenomatous polyps, repeat 3 yrs/COLONOSCOPY FLEXIBLE PROXIMAL DIAGNOSTIC performed by Catracho Ayoub MD at ENDOSCOPY [facility] COLONOSCOPY, DIAGNOSTIC (RECTUM) 10/17/2022 benign adenomatous polyp, repeat 5 yrs / COLONOSCOPY FLEXIBLE PROXIMAL DIAGNOSTIC performed by Rad Puentes MD at [facility]OSCOPY [facility] TURP, RESIDUAL OR RECURRENT, COMPLETE 04/11/2022 Family History Problem Relation Age of Onset Heart attack Father Social History Tobacco Use Smoking status: Never Passive exposure: Past Smokeless tobacco: Never Vaping Use Vaping Use: [...] of systems is negative. PHYSICAL EXAMINATION BP 128/76 | Pulse 60 | Resp 14 | Wt 89.8 kg (198 lb) | BMI 29.24 kg/m | BSA 2.09 m Body mass index is 29.24 kg/m. General: no acute distress and stated [...] Neuro: grossly normal exam Laboratory Data Review: No recent data Impression: 1. Stable coronary artery disease status post drug-eluting stent ramus artery August 2023 2. Historyof PAF and previous CTI for atrial flutter Plan: The patient is clinically stable. As mentioned above he will not be able to afford the Brilinta Robles switched him over to Plavix 75 mg daily. I made a referral to cardiac rehab as he is an avid biker and exercises on a treadmill religiously prior to his stent and he wants to returned to those activities. He will 5 follow-up with us in 3 months or earlier if needed. This chart was completed in part utilizing Software [employer] Speech Voice Recognition Software. Grammatical errors, random word insertions, prounoun errors, and incomplete sentences are an occasional consequence of this system due to software limitations, ambient noise, and hardware issues. Any formal questions or concerns about the content, text, or information contained within the body of this dictation should be directly addressed to the provider for clarification. I spent a total of 30-39 minutes (exact time 38 mins) on the date of service in preparation, delivery, and documentation of the care provided to Burton Rosas excluding any time spent in the performance of separately billed services. Germán Arellano DO [address]iology[address] [address] 10/01/2023 documented in this encounter Nursing Notes * Gisele Nuñez LPN - 10/01/2023 9:23 AM EDT Examination Room: 16 Name: Burton Rosas Date of : 1945 Reason for Visit: Follow up Problems/Concerns: Denies complaint here after cath/stent Interim Hosp(s): denies Chest Pain/SOB: denies MyChart [...] Visit Otolaryngology, Sloan Rahman [address] [place] [address] Nadine Sepulveda MD [address] [place] [address] 11/24/2023 10:00 AM EDT Office Visit [facility], [facility] [place] [address] Macie Emery CRNP 400 [facility] [place] [address] 12/24/2023 9:30 AM EDT Office Visit Cardiology, [facility] [place] [address] Dinesh Scherer DO [address] [place] [address] 03/29/2024 9:00 AM EDT Office [facility] [place] [phone] Gill Lopez CRNP [address] [place] [address] 08/03/2024 9:20 AM EST [facility] [address] [facility] [phone] Aaron Stevens MD [address] [place] [address] Scheduled Procedures Name Priority Associated Diagnoses Date/Ti me COLONOSCOPY FLEXIBLE PROXIMA L DIAGNOSTIC Recall History of colonic polyps Scheduled Referrals Name Type Priority Associated Diagnoses Orde r Schedule CARDIAC REHAB REFERRAL OP Referral Within 10 days (routine) 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 PAF (paroxysmal atrial fibrillation) (HCC) S/P primary angioplasty with coronary stent Ordered: 10/01/2023 Health Maintenance Due Date Last Done Comments [...] as of this encounter Visit Diagnoses Diagnosis S/P primary angioplasty with coronary stent- Primary Postsurgical percutaneous transluminal coronary angioplasty status Tachy-romario syndrome (HCC) Sinoatrial node dysfunction S/P ablation of atrial flutter Other postprocedural status PAF (paroxysmal atrial fibrillation) (HCC) Atrial fibrillation documented in this encounter Care Teams Message And Delivery Service Pricer Relationship Specialty Start Date End Date Aaron Stevens MD [address] [place] [address] PCP - General Family Medicine 07/29/23 documented as of this encounter"
--- OUTSIDE RECORDS SUMMARY | 2023-12-19 11:42 | External Medical Summary | Summary of Care ---
Author Name Unknown Organization [facility] Address [address] [facility] [place] [address] Phone [phone] Care Team Providers Care [facility] Center Assistant Name Role Phone Aaron Stevens MD Primary Care Provider [phone] Encounter Details Date Type Department Care Team (Late st Contact Info) Description 09/29/2023 Orders Only PATIENT PORTAL DO NOT DELETE THIS DEPT USED BY [place] [id number] Allergies No known active allergiesdocumented as of this encounter (statuses as of 09/29/2023) Medications Medication Sig Dispensed Refills Start Date [...] morning and 1 Tablet before bedtime. 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 05/11/2020 documented as of this encounter (statuses as of 09/29/2023) Immunizations Name Administration Dates Next Due COVID-19 mRNA, LNP-s, No Pre serve, 2-Dose Series (Cavis microcaps) 05/29/2021,09/24/2020,08/28/2020 Pneumococcal Polysaccharide PPV23 (Pneumovax) 04/30/2012 Season [...] 10/01/2023 9:30 AM EDT Office Visit Cardiology, [facility] [address] [place] [address] Germán Arellano, [address] [place] [address] 10/15/2023 11:00 AM EDT Office Visit Otolaryngology, [address], [place] [address] [place] [address] Nadine Sepulveda MD [address] [place] [address] 11/24/2023 10:00 AM EDT Office Visit Cardiology, [facility] [address] [facility] [place] [address] Macie Emery CRNP [address] [facility] [place] [address] 03/29/2024 9:00 AM EDT Office Visit [facility] Disorders Ctr [facility] [address] [facility] [place] [phone] Gill Lopez CRNP [address] [facility] [place] [address] 08/03/2024 9:20 AM EST Office Visit [facility] [address] [place] [phone] Aaron Stevens MD [address] [place] [address] Scheduled Procedures Name Priority Associated Diagnoses Date/Ti [...] filedocumented as of this encounter Care Teams Media Center Assistant Relationship Specialty Start Date End Date Aaron Stevens MD [address] [place] [address] [place] [address] PCP - General Family Medicine 07/29/23 documented as of this encounter
--- NOTE | 2023-12-19 12:03 | Emergency Department Note ---
Impression & Plan Headache, HTN (hypertension), Blurry vision, left eye ED Provider Note Provider: Robson Schultz MD DATE OF SERVICE: 12/19/2023 CHIEF COMPLAINT: Left eye vision off and headache HISTORY OF PRESENT ILLNESS: Patient is a 78-year-old gentleman history of atrial fibs/flutter on Eliquis as well as a history of CAD with stent this past spring on Plavix presenting here today reporting over the past several months has been having some issues with vision in the left eye. Has been having some occasional headaches as well. Described as occurring since at least June. Has had an MRI without acute findings several months ago. Saw eye doctor several weeks ago reportedly with normal findings including retinal evaluation. Here today referred by the [facility] office as he called them. States has been intermittent headache and had a fairly significant headache last night. Call the office to see if there is in the could take if they might be able to see him on the Thursday clinic but they were full. Patient states given that he was having deficits they told him to come in here. States his vision is off in the left eye but can still see light. This has been an ongoing issue. No numbness or weakness. No speech issues. No dizziness. No fevers or nausea or vomiting reported. States he does have follow-up with neurology on Thursday and was hoping to sort things out further with them. Has not had in the last several weeks any head imaging. Did fall about a month ago and has a small bump to the top of the head from this. Did not seek evaluation of this previously PAST MEDICAL HISTORY: As noted above MEDICATIONS: Reviewed home medications includes Eliquis as well as Plavix by his report SOCIAL HISTORY: Non-smoker PHYSICAL EXAM: GENERAL: alert and oriented in no acute distress on stretcher Head: normocephalic and atraumatic EYES: No injection, discharge or icterus. PERRL, EOMI. NECK: Trachea midline. Good range of motion ENT: Mucous membranes pink and moist. Pharynx without erythema or exudate. LUNGS: Airway patent. No retractions. Breath sounds clear with good air entry bilaterally. HEART: Regular rate and rhythm. No chest wall tenderness ABDOMEN: Soft and non-tender, without guarding or rebound. SKIN: Acyanotic, warm, dry, without rashes EXTREMITIES: Without swelling, tenderness or deformity NEUROLOGICAL: No focal deficits. No aphasia. No facial droop or slurred speech. Normal strength and tone in the extremities. Sensation to gross touch normal. Ambulatory. EK beats minute sinus rhythm occasional PVC. No acute ST segment elevation or depression with a QTc of 445. CONTINUOUS CARDIAC MONITORING: was ordered and showed a heart rate of 60s to 70s bpm in normal sinus rhythm Patient's laboratory studies and imaging reviewed. Differential includes Migraine headache, meningitis, sinusitis, CO exposure, ICH, SAH, infection, tumor, headache, sinus thrombosis, arterial dissection, as well as other pathologies. IMPRESSION/MEDICAL DECISION MAKING: Patient reassuring on exam. Reports some left eye vision deficit although this appears to be more chronic although does affect clarity and states he has more only ability to see light. No flashes. No precipitating eye pain but generalized head pain. Did strike his head before and as such CT of the head was obtained. Did obtain CT angiograms as well to exclude aneurysm or other acute vascular finding. Chronicity of symptoms does not indicate stroke alert and need for thrombolysis. Denies significant infectious symptoms. Blood work here without anemia or leukocytosis. Very mild hyponatremia of 132 and hypokalemia 3.2. Normal renal function. ESR not severely elevated and CRP P minimally elevated 1.5. Still doubt this represents GCA. Platelet count normal. Troponin normal and EKG without significant arrhythmia only PVC. CT of the head and CT angiograms per radiology do not indicate any mass effect hemorrhage or acute territorial bleed by CT. 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 Is notable for a right frontal meningioma 1.1 cm and some sinus disease. Doubt this is infectious and do not feel the patient needs antibiotics at this time. Discussed with Dr. Kim at [facility] neurology recommended follow-up on Thursday and treating the patient's headache. Again the patient is on antiplatelets and anticoagulants and no further treatment of the high-grade vertebral artery stenosis indicated. Discussed with the patient. Discussed with him proceeding with this. Given low bit of Toradol, Reglan and Toradol for symptoms. Discussed with him possibility of staying for observation and MRI and further workup if he wishes well. He wanted to see how he was doing after some medication. Told by nursing the patient would see me again shortly after receiving medication. Patient states he has not had much improvement with his blood pressure as he is very concerned and strongly wonders if he needs further admission and MRI. Discussed the patient that if he wanted to given his age and comorbidities with hypertension we could bring him into the hospital for MRI and further evaluation with left visual deficit. Does seem that some of his symptoms particularly with visual deficit have been present for some time. In shared decision making the patient wished to be observed. Discussed with the hospitalist team. Will order the MRI to help expedite his evaluation so that hopefully he can make his neurology appointment on Thursday as scheduled. Blood pressure did begin to trend towards improvement. MRI was reassuring. DIAGNOSIS: Headache, left visual changes, hypertensive urgency DISPOSITION: Hospitalist will evaluate Patient was agreeable with this plan. Past Med/Surg History Problem List (Updated 12/19/23 @ 15:24 by Robson Schultz M.D.) Blurry vision, left eye (Acute) HTN (hypertension) (Acute) Headache (Acute) Neurological deficit present Stented coronary artery Stenosis of ramus intermedius coronary artery NSTEMI (non-ST elevated myocardial infarction) Abnormal stress echocardiogram Chest pain (Acute) Atrial flutter Follows with Dr. Tatiana Mcgee PAF (paroxysmal atrial fibrillation) Family history of premature CAD Abnormal stress test Encounter for pre-operative examination Atrial flutter with rapid ventricular response (Acute) ANA on CPAP HTN (hypertension) Benign prostatic hyperplasia (BPH) with urinary urgency Medical History Atrial flutter Follows with Dr. Tatiana Mcgee Enlarged prostate Aortic root enlargement Atrial septal aneurysm History of COVID-19 Dx 05/2021- sinus infection > resolved Prediabetes HLD (hyperlipidemia) ANA on CPAP HTN (hypertension) Benign prostatic hyperplasia (BPH) with urinary urgency Surgical History History of esophagogastroduodenoscopy (EGD) History of colonoscopy History of cardiac radiofrequency ablation 03/2021 [facility] H/O shoulder surgery R/L H/O arthroscopic knee surgery R/L Family History Father Heart disease Brother Family history of diabetes mellitus Social History Smoking Status: Never smoker Second Hand Exposure: Yes (FATHER SMOKED); Do You Dip or Chew Tobacco: No; Hx Alcohol Use: No Hx Substance Use: No Preferred Language: Lithuanian Communication Ability: Effective Hearing Ability: Use of Hearing Aid Diesel Lube Tech Required: No Beliefs That Will Affect Care: None Current Living Situation: Spouse current occupational status: other current occupation: Retired Feels Safe at Home: Yes Assistive Devices: Glasses, Hearing Aid - Left and Hearing Aid - Right Allergies Allergies Allergy/AdvReac Type Severity Reaction Status Date / Time No Known Allergies Allergy Verified 12/19/23 15:24 Home Meds Home Medications Medication Instructions Recorded Confirmed multivitamin 1 tab PO QAM 03/23/21 12/19/23 pravastatin 40 mg tablet 40 mg PO HS 03/23/21 12/19/23 metoprolol succinate 25 mg 25 mg PO QAM 04/08/22 12/19/23 tablet,extended release 24 hr lisinopril 40 mg tablet 40 mg PO DAILY 10/20/22 12/19/23 hydrochlorothiazide 25 mg tablet 25 mg PO DAILY 09/16/23 12/19/23 clopidogrel 75 mg tablet 75 mg PO HS 12/19/23 12/19/23 Previous Rx's Medication Instructions Recorded apixaban 5 mg tablet (Eliquis) 5 mg PO BID #60 tabs 03/24/21 Results & Data (ED) Vital Signs Vital Signs - 24 hr 12/19/23 11:45 12/19/23 12:09 12/19/23 12:10 Temperature 36.8 C Temperature Source Temporal Artery Scan Pulse Rate 70 68 70 Pulse Rate [Left Finger] Pulse Rate from SpO2 Sensor 66 Pulse Rhythm [Left Finger] Pulse Strength [Left Finger] Respiratory Rate 19 22 Respiratory Effort / Characteristics Respiratory Depth Respiratory Pattern Blood Pressure 145/91 H Blood Pressure [Left Arm] Blood Pressure Mean 109 Blood Pressure Mean [Left Arm] Pulse Oximetry 98 96 Oxygen Delivery Method Room Air Sepsis Recent Fever Within 48 Hours No Sepsis New/Unexplained Change in Mental Status N/A Sepsis Action Taken by Nursing No Action Required 12/19/23 12:10 12/19/23 12:20 12/19/23 12:48 Temperature Temperature Source Pulse Rate 68 Pulse Rate [Left Finger] Pulse Rate from SpO2 Sensor 65 Pulse Rhythm [Left Finger] Pulse Strength [Left Finger] Respiratory Rate 24 Respiratory Effort / Characteristics Respiratory Depth Respiratory Pattern Blood Pressure 204/101 H Blood Pressure [Left Arm] Blood Pressure Mean 158 Blood Pressure Mean [Left Arm] Pulse Oximetry 98 94 Oxygen Delivery Method Room Air Sepsis Recent Fever Within 48 Hours Sepsis New/Unexplained Change in Mental Status Sepsis Action Taken by Nursing 12/19/23 13:15 12/19/23 14:00 12/19/23 14:26 Temperature Temperature Source Pulse Rate 68 77 Pulse Rate [Left Finger] 76 Pulse Rate from SpO2 Sensor 67 Pulse Rhythm [Left Finger] Regular Pulse Strength [Left Finger] Normal Respiratory Rate 22 20 Respiratory Effort / Characteristics Non-Labored Spontaneous Respiratory Depth Normal Respiratory Pattern Regular Blood Pressure 149/98 H 203/117 H Blood Pressure [Left Arm] 209/108 H Blood Pressure Mean 115 Blood Pressure Mean [Left Arm] 141 Pulse Oximetry 95 98 Oxygen Delivery Method Sepsis Recent Fever Within 48 Hours Sepsis New/Unexplained Change in Mental Status Sepsis Action Taken by Nursing 12/19/23 16:45 12/19/23 16:57 Temperature Temperature Source Pulse Rate 60 Pulse Rate [Left Finger] 85 Pulse Rate from SpO2 Sensor Pulse Rhythm [Left Finger] Pulse Strength [Left Finger] Normal Respiratory Rate 18 Respiratory Effort / Characteristics Non-Labored Spontaneous Respiratory Depth Normal Respiratory Pattern Blood Pressure 129/83 Blood Pressure [Left Arm] 147/79 H Blood Pressure Mean Blood Pressure Mean [Left Arm] 101 Pulse Oximetry 96 Oxygen Delivery Method Room Air Sepsis Recent Fever Within 48 Hours Sepsis New/Unexplained Change in Mental Status Sepsis Action Taken by Nursing Laboratory Data 12/19/23 12:05 12/19/23 12:05 Lab Results 12/19/23 12/19/23 Range/Units 12:05 12:10 WBC 10.32 (4.8-10.8) K/ul RBC 4.64 L (4.70-6.10) M/uL Hgb 14.4 (14.0-18.0) g/dl POC Hgb 14.6 (14.0-18.0) g/dl Hct 41.5 L (42.0-52.0) % POC Hct 43 (42-52) % MCV 89.4 (80.0-100.0) fL MCH 31.0 (25.0-34.0) pg MCHC 34.7 (32.0-36.0) g/dL RDW Std Deviation 40.3 (36.4-46.3) fL RDW Coeff of [place] 12.3 (11.5-14.5) % Plt Count 202 (130-400) K/uL MPV 9.6 (9.4-12.4) fL Immature Gran % (Auto) 0.2 % Neut % (Auto) 82.8 % Lymph % (Auto) 10.2 % Mathews % (Auto) 6.6 % Eos % (Auto) 0.1 % Baso % (Auto) 0.1 % Neut # (Auto) 8.55 H (1.40-6.50) K/uL Lymph # (Auto) 1.05 L (1.20-3.40) K/uL Mathews # (Auto) 0.68 H (0.11-0.59) K/uL Eos # (Auto) 0.01 (0.00-0.50) K/uL Baso # (Auto) 0.01 (0.00-0.20) K/uL Immature Gran # (Auto) 0.02 (0.01-0.20) K/uL ESR 37 H (0-20) mm/hr PT 10.9 (9.0-12.0) Seconds INR 1.0 (0.9-1.1) APTT 31 (21-31) Seconds PTT Ratio 1.2 POC Sodium 134 L (135-144) mmol/L Sodium 132 L (136-145) mmol/L POC Potassium 3.2 L (3.3-5.0) mmol/L Potassium 3.2 L (3.5-5.1) mmol/L POC Chloride 95 L (101-112) mmol/L Chloride 95 L (98-107) mmol/L Carbon Dioxide 29 (21-32) mmol/L POC Total CO2 30 (24-31) mmol/L Anion Gap 8 (3-11) POC Anion Gap 13.0 L (16-25) mmol/L POC BUN 13 (7-18) mg/dl BUN 15 (6-23) mg/dl Creatinine 0.93 (0.6-1.4) mg/dl POC Creatinine 1.0 (0.6-1.3) mg/dl Est Cr Clr Drug Dosing 72.9 ml/min Est GFR ( Amer) 91.5 ml/min Est GFR (Non-Af Amer) 78.9 ml/min BUN/Creatinine Ratio 16.1 (10-20) Glucose 138 H (70-99(Fasting)) mg/dl POC Glucose (other) 134 H (70-99) mg/dl Calcium 10.2 (8.6-10.3) mg/dl POC Ioniz Calcium Joaquim 1.17 (1.12-1.32) mmol/l Magnesium 1.8 (1.7-2.4) mg/dl Total Bilirubin 0.8 (0.2-1.0) mg/dl AST 18 (13-39) U/L ALT 16 (7-52) U/L Alkaline Phosphatase 81 (34-104) U/L Troponin I High Sens 10.5 (0-20) pg/ml C-Reactive Protein 1.55 H (0-0.5) mg/dl Total Protein 7.5 (6.0-8.3) gm/dl Albumin 4.7 (3.4-5.0) gm/dl Globulin 2.8 (2.5-4.0) gm/dl Albumin/Globulin Ratio 1.7 (0.9-2) Administered Medications Discontinued Medications Ioversol (Optiray 320 125ml) 112 ml IV ONCE ONE Stop: 12/19/23 12:30 Last Admin: 12/19/23 12:30 Dose: 112 ml Documented By: DORIS Ketorolac Tromethamine (Ketorolac Tromethamine 15 Mg/Ml Vial) 10 mg IV NOW STA Stop: 12/19/23 14:20 Last Admin: 12/19/23 14:25 Dose: 10 mg Documented By: CRYSTAL Labetalol HCl (Labetalol Hcl Iv 5 Mg/Ml 20ml) 10 mg IV NOW STA Stop: 12/19/23 14:16 Last Admin: 12/19/23 14:26 Dose: 10 mg Documented By: CRYSTAL Co-signed By: ESPINOZA Metoclopramide HCl (Metoclopramide Hcl Inj 5 Mg/Ml 2 Ml Vial) 5 mg IV ONE ONE Stop: 12/19/23 14:20 Last Admin: 12/19/23 14:23 Dose: 5 mg Documented By: CRYSTAL Imaging Data Radiologist's Impression: Head CT 12/19/23 12:[address] OF THE BRAIN; CT ANGIOGRAM OF THE BRAIN; CT ANGIOGRAM OF THE NECK CLINICAL HISTORY: Headache. Visual changes. COMPARISON STUDY: MRI of the orbits dated 07/15/2023. TECHNIQUE: Unenhanced axial CT scan of the brain is performed. Subsequently, following the IV administration of 112 of Optiray 320, CT angiogram of the head and neck was performed from the aortic arch to the vertex. Images are reviewed in the axial, sagittal, and coronal planes. 3-D MIPS images are created and assessed. IV contrast was administered without complication. All measurements were calculated based on NASCET criteria. A dose lowering technique was utilized adhering to the principles of ALARA. CT DOSE: 1207.86 mGy.cm FINDINGS: Brain parenchyma: There is age-related involutional change noting minimal microangiopathic disease. There is no hemorrhage, mass effect, or evidence of acute territorial ischemia by CT criteria. A 1.1 cm enhancing extra-axial nodule along the right frontal convexity is seen on images #142. The appearance is typical for a small meningioma. No additional enhancing lesion is suggested On the angiogram phase images. The ventricles, sulci, and cisterns are prominent secondary to involutional change. Cavum septum pellucidum is incidentally noted. Calixto-white matter differentiation is preserved. No extra-axial fluid collection is seen. Thoracic aorta: There is atherosclerotic calcification of the thoracic aorta. Visualized portions of the thoracic aorta are normal in caliber. The aortic arch demonstrates standard 3-vessel anatomy. Right carotid arterial system: The right common carotid artery is widely patent, as are the right internal and external carotid arteries. Mild plaque is noted in the carotid bulb. Left carotid arterial system: The left common carotid artery is widely patent, as are the left internal and external carotid arteries. Mild calcified plaque is noted in the carotid bulb. Vertebral arteries: The vertebral arteries are widely patent bilaterally noting left-sided dominance. Subclavian arteries: Widely patent bilaterally. Intracranial vasculature: There is atherosclerotic calcification of the cavernous carotid and vertebral arteries. The [place] of [place] is developmentally complete. The left A1 segment is diminutive. The internal carotid arteries are patent at the skull base, as are the anterior and middle cerebral arteries bilaterally. 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 The vertebral arteries and basilar artery are otherwise patent. The posterior cerebral arteries are patent. The left vertebral artery is dominant. There is no aneurysm, high-grade stenosis, or focal vessel cut off seen throughout the intracranial circulation. Jugular veins: Patent bilaterally. Dural sinuses: Patent. Lung apices: Partially visualized upper lobe lung parenchyma appears clear. Soft tissues: The visualized pharyngeal soft tissues are normal in appearance noting angiographic phase technique. The oropharyngeal airway appears widely patent. The salivary and thyroid glands are normal in appearance. No cervical lymphadenopathy is seen. Skeletal structures: The skeletal structures are osteopenic. The calvarium appears intact. The cervical spine is maintained noting mild multilevel spondylosis. Orbits: The bony orbits are intact. Orbital contents are normal as visualized noting a left ocular lens implant. Sinuses and mastoids: There is moderate mucosal thickening in the left maxillary antrum. Mild mucosal thickening is seen in the right maxillary sinus, and there is complete opacification of the left sphenoid sinus which contains calcified debris. There is moderate mucosal thickening within the left posterior ethmoid sinuses. Mild mucosal thickening is seen in the right ethmoid sinuses, the right sphenoid sinus, and the frontal sinuses. The mastoid air cells are well pneumatized. IMPRESSION: 1. There is no hemorrhage, mass effect, or evidence of acute territorial ischemia by CT criteria. 2. 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 3. Otherwise unremarkable CT angiogram of the brain. 4. Unremarkable CT angiogram of the neck. 5. A 1.1 cm enhancing extra-axial nodule along the right frontal convexity is typical for a meningioma. 6. Paranasal sinus disease as above. ACT 112: Negative or not required by law. Electronically signed by: Alessandro Zuniga M.D. 12/19/2023 1:09 PM Head CTA 12/19/23 12:[address] OF THE BRAIN; CT ANGIOGRAM OF THE BRAIN; CT ANGIOGRAM OF THE NECK CLINICAL HISTORY: Headache. Visual changes. COMPARISON STUDY: MRI of the orbits dated 07/15/2023. TECHNIQUE: Unenhanced axial CT scan of the brain is performed. Subsequently, following the IV administration of 112 of Optiray 320, CT angiogram of the head and neck was performed from the aortic arch to the vertex. Images are reviewed in the axial, sagittal, and coronal planes. 3-D MIPS images are created and assessed. IV contrast was administered without complication. All measurements were calculated based on NASCET criteria. A dose lowering technique was utilized adhering to the principles of ALARA. CT DOSE: 1207.86 mGy.cm FINDINGS: Brain parenchyma: There is age-related involutional change noting minimal microangiopathic disease. There is no hemorrhage, mass effect, or evidence of acute territorial ischemia by CT criteria. A 1.1 cm enhancing extra-axial nodule along the right frontal convexity is seen on images #142. The appearance is typical for a small meningioma. No additional enhancing lesion is suggested On the angiogram phase images. The ventricles, sulci, and cisterns are prominent secondary to involutional change. Cavum septum pellucidum is incidentally noted. Calixto-white matter differentiation is preserved. No extra-axial fluid collection is seen. Thoracic aorta: There is atherosclerotic calcification of the thoracic aorta. Visualized portions of the thoracic aorta are normal in caliber. The aortic arch demonstrates standard 3-vessel anatomy. Right carotid arterial system: The right common carotid artery is widely patent, as are the right internal and external carotid arteries. Mild plaque is noted in the carotid bulb. Left carotid arterial system: The left common carotid artery is widely patent, as are the left internal and external carotid arteries. Mild calcified plaque is noted in the carotid bulb. Vertebral arteries: The vertebral arteries are widely patent bilaterally noting left-sided dominance. Subclavian arteries: Widely patent bilaterally. Intracranial vasculature: There is atherosclerotic calcification of the cavernous carotid and vertebral arteries. The [place] of [place] is developmentally complete. The left A1 segment is diminutive. The internal carotid arteries are patent at the skull base, as are the anterior and middle cerebral arteries bilaterally. 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 The vertebral arteries and basilar artery are otherwise patent. The posterior cerebral arteries are patent. The left vertebral artery is dominant. There is no aneurysm, high-grade stenosis, or focal vessel cut off seen throughout the intracranial circulation. Jugular veins: Patent bilaterally. Dural sinuses: Patent. Lung apices: Partially visualized upper lobe lung parenchyma appears clear. Soft tissues: The visualized pharyngeal soft tissues are normal in appearance noting angiographic phase technique. The oropharyngeal airway appears widely patent. The salivary and thyroid glands are normal in appearance. No cervical lymphadenopathy is seen. Skeletal structures: The skeletal structures are osteopenic. The calvarium appears intact. The cervical spine is maintained noting mild multilevel spondylosis. Orbits: The bony orbits are intact. Orbital contents are normal as visualized noting a left ocular lens implant. Sinuses and mastoids: There is moderate mucosal thickening in the left maxillary antrum. Mild mucosal thickening is seen in the right maxillary sinus, and there is complete opacification of the left sphenoid sinus which contains calcified debris. There is moderate mucosal thickening within the left posterior ethmoid sinuses. Mild mucosal thickening is seen in the right ethmoid sinuses, the right sphenoid sinus, and the frontal sinuses. The mastoid air cells are well pneumatized. IMPRESSION: 1. There is no hemorrhage, mass effect, or evidence of acute territorial ischemia by CT criteria. 2. 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 3. Otherwise unremarkable CT angiogram of the brain. 4. Unremarkable CT angiogram of the neck. 5. A 1.1 cm enhancing extra-axial nodule along the right frontal convexity is typical for a meningioma. 6. Paranasal sinus disease as above. ACT 112: Negative or not required by law. Electronically signed by: Alessandro Zuniga M.D. 12/19/2023 1:09 PM Neck CTA 12/19/23 12:[address] OF THE BRAIN; CT ANGIOGRAM OF THE BRAIN; CT ANGIOGRAM OF THE NECK CLINICAL HISTORY: Headache. Visual changes. COMPARISON STUDY: MRI of the orbits dated 07/15/2023. TECHNIQUE: Unenhanced axial CT scan of the brain is performed. Subsequently, following the IV administration of 112 of Optiray 320, CT angiogram of the head and neck was performed from the aortic arch to the vertex. Images are reviewed in the axial, sagittal, and coronal planes. 3-D MIPS images are created and assessed. IV contrast was administered without complication. All measurements were calculated based on NASCET criteria. A dose lowering technique was utilized adhering to the principles of ALARA. CT DOSE: 1207.86 mGy.cm FINDINGS: Brain parenchyma: There is age-related involutional change noting minimal microangiopathic disease. There is no hemorrhage, mass effect, or evidence of acute territorial ischemia by CT criteria. A 1.1 cm enhancing extra-axial nodule along the right frontal convexity is seen on images #142. The appearance is typical for a small meningioma. No additional enhancing lesion is suggested On the angiogram phase images. The ventricles, sulci, and cisterns are prominent secondary to involutional change. Cavum septum pellucidum is incidentally noted. Calixto-white matter differentiation is preserved. No extra-axial fluid collection is seen. Thoracic aorta: There is atherosclerotic calcification of the thoracic aorta. Visualized portions of the thoracic aorta are normal in caliber. The aortic arch demonstrates standard 3-vessel anatomy. Right carotid arterial system: The right common carotid artery is widely patent, as are the right internal and external carotid arteries. Mild plaque is noted in the carotid bulb. Left carotid arterial system: The left common carotid artery is widely patent, as are the left internal and external carotid arteries. Mild calcified plaque is noted in the carotid bulb. Vertebral arteries: The vertebral arteries are widely patent bilaterally noting left-sided dominance. Subclavian arteries: Widely patent bilaterally. Intracranial vasculature: There is atherosclerotic calcification of the cavernous carotid and vertebral arteries. The [place] of [place] is developmentally complete. The left A1 segment is diminutive. The internal carotid arteries are patent at the skull base, as are the anterior and middle cerebral arteries bilaterally. 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 The vertebral arteries and basilar artery are otherwise patent. The posterior cerebral arteries are patent. The left vertebral artery is dominant. There is no aneurysm, high-grade stenosis, or focal vessel cut off seen throughout the intracranial circulation. Jugular veins: Patent bilaterally. Dural sinuses: Patent. Lung apices: Partially visualized upper lobe lung parenchyma appears clear. Soft tissues: The visualized pharyngeal soft tissues are normal in appearance noting angiographic phase technique. The oropharyngeal airway appears widely patent. The salivary and thyroid glands are normal in appearance. No cervical lymphadenopathy is seen. Skeletal structures: The skeletal structures are osteopenic. The calvarium appears intact. The cervical spine is maintained noting mild multilevel spondylosis. Orbits: The bony orbits are intact. Orbital contents are normal as visualized noting a left ocular lens implant. Sinuses and mastoids: There is moderate mucosal thickening in the left maxillary antrum. Mild mucosal thickening is seen in the right maxillary sinus, and there is complete opacification of the left sphenoid sinus which contains calcified debris. There is moderate mucosal thickening within the left posterior ethmoid sinuses. Mild mucosal thickening is seen in the right ethmoid sinuses, the right sphenoid sinus, and the frontal sinuses. The mastoid air cells are well pneumatized. IMPRESSION: 1. There is no hemorrhage, mass effect, or evidence of acute territorial ischemia by CT criteria. 2. 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 3. Otherwise unremarkable CT angiogram of the brain. 4. Unremarkable CT angiogram of the neck. 5. A 1.1 cm enhancing extra-axial nodule along the right frontal convexity is typical for a meningioma. 6. Paranasal sinus disease as above. ACT 112: Negative or not required by law. Electronically signed by: Alessandro Zuniga M.D. 12/19/2023 1:09 PM Brain MRI 12/19/23 14:52 MRI OF THE BRAIN WITHOUT IV CONTRAST CLINICAL HISTORY: Headache. Hypertension. COMPARISON STUDY: CT of the brain dated 12/19/2023. TECHNIQUE: MRI of the brain was performed utilizing various T1 and T2-weighted sequences in the axial, sagittal, and coronal planes. IV contrast was not administered for this examination. FINDINGS: Brain parenchyma: There is age-related involutional change noting minimal microangiopathic disease. There is no hemorrhage or mass effect. There is no restricted diffusion to suggest acute ischemia. Calixto-white matter differentiation is preserved. No extra-axial fluid collection is seen. The cerebellar tonsils are normal in configuration. A 10 mm extra-axial nodule along the right frontal convexity on axial image #12 is typical for a meningioma. Ventricles, sulci, and cisterns: Prominent secondary to involutional change. Cavum septum pellucidum is incidentally noted. Pituitary and sella: Unremarkable. Intracranial vasculature: Normal flow voids are maintained at the skull base. Orbits: The bony orbits are grossly intact. Orbital contents are normal in appearance noting a left ocular lens implant. Sinuses and mastoids: There is opacification of the left sphenoid sinus, as well as several left posterior ethmoid sinuses. Moderate mucosal thickening is seen in the left maxillary antrum. There is mild mucosal thickening within the frontal sinuses, ethmoid sinuses, and the right sphenoid sinus. There are opacified right mastoid air cells at the petrous apex. The mastoid air cells are otherwise clear. Calvarium: Unremarkable. Cervical cord: Partially visualized cervical spinal cord is normal in morphology and signal intensity. IMPRESSION: 1. No acute intracranial abnormality. 2. Paranasal sinus disease as above, as well as a right mastoid effusion of the petrous apex. 3. A 10 mm meningioma is again seen on the right frontal convexity. ACT 112: Negative or not required by law. Electronically signed by: Alessandro Zuniga M.D. 12/19/2023 5:00 PM Discharge Plan Visit Data Chief Complaint: Neuro Symptoms/Deficit Stated Complaint: headache, loss of vision(L eye) ED Provider: Robson Schultz Discharge Problem: Headache, HTN (hypertension), Blurry vision, left eye Patient Disposition: Being Evaluated by Hospitalist Forms Stand Alone Forms: My [facility] Prescriptions Prescriptions: No Action lisinopril 40 mg tablet 40 mg PO DAILY pravastatin 40 mg tablet 40 mg PO HS multivitamin Tablet 1 tab PO QAM Eliquis 5 mg Tablet 5 mg PO BID Qty: 60 1RF metoprolol succinate 25 mg tablet extended release 24 hr 25 mg PO QAM clopidogrel 75 mg tablet 75 mg PO HS hydrochlorothiazide 25 mg tablet 25 mg PO DAILY Referrals Referrals: Aaron Stevens MD [Primary Care Provider] -
[2023-12-19 12:17] LABS: Basophils # (auto) 0.01 K/uL (0.00-0.20); Basophils % (auto) 0.1 %; Eosinophils # (auto) 0.01 K/uL (0.00-0.50); Eosinophils % (auto) 0.1 %; Hematocrit (blood only) 41.5 % (42.0-52.0); Hemoglobin 14.4 g/dl (14.0-18.0); Immature Granulocytes # (auto) 0.02 K/uL (0.01-0.20); Immature Granulocytes % (auto) 0.2 %; Lymphocytes # (auto) 1.05 K/uL (1.20-3.40); Lymphocytes % (auto) 10.2 %; Mean Corpuscular Hgb Conc 34.7 g/dL (32.0-36.0); Mean Corpuscular Volume 89.4 fL (80.0-100.0); Mean Platelet Volume 9.6 fL (9.4-12.4); Monocytes # (auto) 0.68 K/uL (0.11-0.59); Monocytes % (auto) 6.6 %; Neutrophils # (auto) 8.55 K/uL (1.40-6.50); Neutrophils % (auto) 82.8 %; Platelet Count 202 K/uL (130-400); RDW Coefficient of Variation 12.3 % (11.5-14.5); RDW Standard Deviation 40.3 fL (36.4-46.3); Red Blood Count 4.64 M/uL (4.70-6.10); White Blood Count 10.32 K/ul (4.8-10.8)
[2023-12-19 12:22] LABS: iSTAT Hemoglobin 14.6 g/dl (14.0-18.0); iSTAT Ionized Calcium 1.17 mmol/l (1.12-1.32); iSTAT Potassium 3.2 mmol/L (3.3-5.0)
[2023-12-19] MEDS: OPTIRAY 320 125ml IV ONE (12:30)
[2023-12-19 12:35] LABS: Albumin Globulin Ratio 1.7 (0.9-2); Albumin Level 4.7 gm/dl (3.4-5.0); BUN Creatinine Ratio 16.1 (10-20); Bilirubin,Total 0.8 mg/dl (0.2-1.0); C Reactive Protein 1.55 mg/dl (0-0.5); Calcium 10.2 mg/dl (8.6-10.3); Creatinine Clr Calc Pharmacy 72.9 ml/min; Est GFR (African American) 91.5 ml/min; Est GFR (Non-African American) 78.9 ml/min; Globulin 2.8 gm/dl (2.5-4.0); Magnesium 1.8 mg/dl (1.7-2.4); Potassium 3.2 mmol/L (3.5-5.1); Total Protein 7.5 gm/dl (6.0-8.3)
[2023-12-19 12:42] LABS: Troponin I High Sensitivity 10.5 pg/ml (0-20)
[2023-12-19 12:44] LABS: Partial Thromboplastin Ratio 1.2; Partial Thromboplastin Time 31 Seconds (21-31); Prothrombin Time 10.9 Seconds (9.0-12.0)
--- NOTE | 2023-12-19 13:12 | CT Scan Report ---
UNENHANCED CT OF THE BRAIN; CT ANGIOGRAM OF THE BRAIN; CT ANGIOGRAM OF THE NECK CLINICAL HISTORY: Headache. Visual changes. COMPARISON STUDY: MRI of the orbits dated 07/15/2023. TECHNIQUE: Unenhanced axial CT scan of the brain is performed. Subsequently, following the IV adminis tration of 112 of [address] 320, CT angiogram of the head and neck was performed from the aortic arch t o the vertex. Images are reviewed in the axial, sagittal, and coronal planes. 3-D MIPS images are cre ated and assessed. IV contrast was administered without complication. All measurements were calculate d based on NASCET criteria. A dose lowering technique was utilized adhering to the principles of ALA RA. CT DOSE: 1207.86 mGy.cm FINDINGS: Brain parenchyma: There is age-related involutional change noting minimal microangiopathic disease. T here is no hemorrhage, mass effect, or evidence of acute territorial ischemia by CT criteria. A 1.1 c m enhancing extra-axial nodule along the right frontal convexity is seen on images #142. The appearan ce is typical for a small meningioma. No additional enhancing lesion is suggested On the angiogram ph ase images. The ventricles, sulci, and cisterns are prominent secondary to involutional change. Cavum septum pellucidum is incidentally noted. Calixto-white matter differentiation is preserved. No extra-ax ial fluid collection is seen. Thoracic aorta: There is atherosclerotic calcification of the thoracic aorta. Visualized portions of the thoracic aorta are normal in caliber. The aortic arch demonstrates standard 3-vessel anatomy. Right carotid arterial system: The right common carotid artery is widely patent, as are the right int ernal and external carotid arteries. Mild plaque is noted in the carotid bulb. Left carotid arterial system: The left common carotid artery is widely patent, as are the left [employer] al and external carotid arteries. Mild calcified plaque is noted in the carotid bulb. Vertebral arteries: The vertebral arteries are widely patent bilaterally noting left-sided dominance. Subclavian arteries: Widely patent bilaterally. Intracranial vasculature: There is atherosclerotic calcification of the cavernous carotid and vertebr al arteries. The [place] of [place] is developmentally complete. The left A1 segment is diminutive. The internal carotid arteries are patent at the skull base, as are the anterior and middle cerebral emmie lo bilaterally. There is high-grade focal stenosis of the intracranial right vertebral artery at th e skull base seen on axial image #30. The vertebral arteries and basilar artery are otherwise patent. The posterior cerebral arteries are patent. The left vertebral artery is dominant. There is no aneur ysm, high-grade stenosis, or focal vessel cut off seen throughout the intracranial circulation. Jugular veins: Patent bilaterally. Dural sinuses: Patent. Lung apices: Partially visualized upper lobe lung parenchyma appears clear. Soft tissues: The visualized pharyngeal soft tissues are normal in appearance noting angiographic pha se technique. The oropharyngeal airway appears widely patent. The salivary and thyroid glands are nor mal in appearance. No cervical lymphadenopathy is seen. Skeletal structures: The skeletal structures are osteopenic. The calvarium appears intact. The cervic al spine is maintained noting mild multilevel spondylosis. Orbits: The bony orbits are intact. Orbital contents are normal as visualized noting a left ocular le ns implant. Sinuses and mastoids: There is moderate mucosal thickening in the left maxillary antrum. Mild mucosal thickening is seen in the right maxillary sinus, and there is complete opacification of the left sph enoid sinus which contains calcified debris. There is moderate mucosal thickening within the left pos terior ethmoid sinuses. Mild mucosal thickening is seen in the right ethmoid sinuses, the right sphen oid sinus, and the frontal sinuses. The mastoid air cells are well pneumatized. IMPRESSION: 1. There is no hemorrhage, mass effect, or evidence of acute territorial ischemia by CT criteria. 2. 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 3. Otherwise unremarkable CT angiogram of the brain. 4. Unremarkable CT angiogram of the neck. 5. A 1.1 cm enhancing extra-axial nodule along the right frontal convexity is typical for a meningiom a. 6. Paranasal sinus disease as above. ACT 112: Negative or not required by law. Electronically signed by: Alessandro Zuniga M.D. 12/19/2023 1:09 PM
[2023-12-19] MEDS: METOCLOPRAMIDE HCL INJ 5 MG/ML 2 ML VIAL IV ONE (14:23)
[2023-12-19] MEDS: KETOROLAC TROMETHAMINE 15 MG/ML VIAL IV STA (14:25)
[2023-12-19] MEDS: LABETALOL HCL IV 5 MG/ML 20ML IV STA (14:26)
--- NOTE | 2023-12-19 15:09 | History & Physical Report ---
Date of Service December 19, 2023 Assessment & Plan (1) Neurological deficit present: (2) Stented coronary artery: (3) PAF (paroxysmal atrial fibrillation): (4) Atrial flutter: (5) HTN (hypertension): (6) ANA on CPAP: (7) HLD (hyperlipidemia): (8) Prediabetes: Plan: Neurological deficits with left eye blurred vision Headache of unknown etiology -Admit to PCU for stroke rule out -CTA of the head and neck was completed, shows high-grade focal stenosis of the right vertebral artery, also noted is a 1.1 cm meningioma -MRI was completed of the orbits in June 2023 which did not show any abnormalities. -Neuro consult, scheduled to see them as an outpatient on 12/20 at 08 100, attempt to keep this appointment -Stroke order set completed -Last A1c of 6.1 on 08/27/2023, lipid panel reviewed and within normal limits from last year, repeat with a.m. labs for completeness -Echo completed in 09/16/2023 showing an EF of 55 to 59%, mild diffuse left ventricular hypokinesis with stress, diastolic function is mildly abnormal, grade 1, mild mitral regurg, atrial septal aneurysm,-no need to repeat at this time Hypertensive urgency -Patient is on metoprolol, HCTZ, lisinopril at home -Labetalol IV 10 mg IV given in the ER, continue as needed with holding parameters to improve BP, Improved to 135/80 at the time of my visit -Likely contributing to headache today CAD A-fib/A-flutter on Eliquis HTN/HLD -Status post ablation -Maintained on Eliquis and Plavix -Beta-vickey, RICHARD, HCTZ Prediabetes -A1c as noted above, trend glucoses -Diet and exercise to be encouraged hospital stay ANA - Cont CPAP HS DVT ppx: teds, scds, plavix and eliquis Lines: PIV x 1 FEN/GI: HH diet CODE: DNR/DNI Dispo: From home, likely to remain in the hospital x 1-2 days A total of 77 minutes were spent with greater than 50% of that time face to face with the patient, personally reviewing all current laboratories, imaging studies, past medication reconciliation, outpatient chart review, and discussion with specialists to collaborate care for the patient with attending. Please see attending documentation for corrections and/or additions. History of Present Illness Chief Complaint: Elevated BP, L eye Primary Care Provider: Aaron Stevens MD This is a 78-year-old male with PMHx of a flutter/paroxysmal A-fib on Eliquis, tachybradycardia syndrome, HTN, HLD, ANA, BPH with LUTS, prediabetes, who presents to the hospital with worsening left eye blurred vision. He was seen by ophthalmology, Dr. Sudarshan Zuleta and Dr. Denis on 12/17/2023 for increased pressure behind the left eye and increased headache as the day goes on, and happens nearly every other day. Denied any jaw pain or ringing in the ears. No fever, nausea or vomiting, he has routine eye exams and his last one prior to this was 6 weeks ago. At this visit it was determined that there was no clear ophthalmologic etiology on exam. He is scheduled to see neurology as outpatient on 12/21/2023 at 0800. Remotely, he had issues with the same eye last March 2023 where he had accidentally bumped into a wheelbarrow handle when doing yard work at home causing eye issues. It had resolved by May 2023. He had an MRI of eye orbits done here at [facility] on 07/15/23 but not of the brain. Allergies Allergy/AdvReac Type Severity Reaction Status Date / Time No Known Allergies Allergy Verified 12/19/23 15:24 Home Medications Medication Instructions Recorded Confirmed Type multivitamin 1 tab PO QAM 03/23/21 12/19/23 History pravastatin 40 mg tablet 40 mg PO HS 03/23/21 12/19/23 History apixaban 5 mg tablet (Eliquis) 5 mg PO BID #60 tabs 03/24/21 12/19/23 Rx metoprolol succinate 25 mg 25 mg PO QAM 04/08/22 12/19/23 History tablet,extended release 24 hr lisinopril 40 mg tablet 40 mg PO DAILY 10/20/22 12/19/23 History hydrochlorothiazide 25 mg tablet 25 mg PO DAILY 09/16/23 12/19/23 History clopidogrel 75 mg tablet 75 mg PO HS 12/19/23 12/19/23 History Past Med/Surg History Problem List (Updated 12/19/23 @ 15:24 by Robson Schultz M.D.) Blurry vision, left eye (Acute) HTN (hypertension) (Acute) Headache (Acute) Neurological deficit present Stented coronary artery Stenosis of ramus intermedius coronary artery NSTEMI (non-ST elevated myocardial infarction) Abnormal stress echocardiogram Chest pain (Acute) Atrial flutter Follows with Dr. Tatiana Mcgee PAF (paroxysmal atrial fibrillation) Family history of premature CAD Abnormal stress test Encounter for pre-operative examination Atrial flutter with rapid ventricular response (Acute) ANA on CPAP HTN (hypertension) Benign prostatic hyperplasia (BPH) with urinary urgency Medical History Atrial flutter Follows with Dr. Tatiana Mcgee Enlarged prostate Aortic root enlargement Atrial septal aneurysm History of COVID-19 Dx 05/2021- sinus infection > resolved Prediabetes HLD (hyperlipidemia) ANA on CPAP HTN (hypertension) Benign prostatic hyperplasia (BPH) with urinary urgency Surgical History History of esophagogastroduodenoscopy (EGD) History of colonoscopy History of cardiac radiofrequency ablation 03/2021 [facility] H/O shoulder surgery R/L H/O arthroscopic knee surgery R/L Family History Father Heart disease Brother Family history of diabetes mellitus Social History Smoking Status: Never smoker Second Hand Exposure: Yes (FATHER SMOKED); Do You Dip or Chew Tobacco: No; Hx Alcohol Use: No Hx Substance Use: No Preferred Language: Turkish Communication Ability: Effective Hearing Ability: Use of Hearing Aid Demi Chef Required: No Beliefs That Will Affect Care: None Current Living Situation: Spouse current occupational status: other current occupation: Retired Feels Safe at Home: Yes Assistive Devices: Glasses, Hearing Aid - Left and Hearing Aid - Right Review of Systems Review of Systems: Constitutional: No fever, sweats or chills Eyes: No diplopia, + left eye blurred vision, no right eye deficits. No tunnel vision, no dark curtain like sx ENT: normal hearing, no trouble swallowing, no tinnitus, congestion or sore throat Respiratory: No cough, sputum, dyspnea at rest or on exertion Cardiovascular: No chest pain, tightness or palpitations Abdomen: No pain, nausea, vomiting, diarrhea or constipation Musculoskeletal: No joint pain, calf pain, swelling Neurologic: No weakness, numbness/tingling, or balance problems Psychiatric: No anxiety or depression Skin: No rash or itch Physical Exam Physical Exam: General: awake, alert, no apparent distress, white male Head: Normocephalic, atraumatic ENT: PERRL, EOMI, peripheral vision is intact bilaterally. + difficulty with counting number of fingers I am holding up at about 10 feet away with the no pharyngeal exudate, mucous membranes moist, TM pearly tiwari bilaterally, no erythema or edema. Chest: Clear to auscultation, on room air, no adventitious breath sounds Cardiac: Regular rate and rhythm, few PVCs, no murmur, no JVD, normal peripheral pulses, good capillary refill Abdominal: NABS x 4 quadrants, soft, nondistended, nontender to palpation, no rebound or guarding Extremities: Normal inspection, no peripheral edema or erythema, calfs nontender to palpation Psych: Normal mood and affect Neuro: AAO x 3, strength intact bilaterally and rated 5/5, no motor deficits, follows all commands, visual testing is intact except for reported blurred vision as above. No peripheral field deficits, speech is clear, no peripheral sensory deficits Results & Data Results & Data Vital Signs (Past 12 Hours) Vital Signs Temp Pulse Pulse Resp BP BP Pulse Ox 12/19/23 14:26 77 203/117 H 12/19/23 14:00 76 20 209/108 H 98 12/19/23 13:15 68 22 149/98 H 95 12/19/23 12:48 68 24 94 12/19/23 12:20 98 12/19/23 12:10 204/101 H 12/19/23 12:10 70 12/19/23 12:09 68 22 96 12/19/23 11:45 36.8 C 70 19 145/91 H 98 O2 Del Method 12/19/23 14:26 12/19/23 14:00 12/19/23 13:15 12/19/23 12:48 12/19/23 12:20 Room Air 12/19/23 12:10 12/19/23 12:10 12/19/23 12:09 12/19/23 11:45 Room Air Laboratory Results 12/19/23 12/19/23 12:10 12:05 WBC 10.32 RBC 4.64 L Hgb 14.4 POC Hgb 14.6 Hct 41.5 L POC Hct 43 MCV 89.4 MCH 31.0 MCHC 34.7 RDW Std Deviation 40.3 RDW Coeff of [place] 12.3 Plt Count 202 MPV 9.6 Immature Gran % (Auto) 0.2 Neut % (Auto) 82.8 Lymph % (Auto) 10.2 Vernon % (Auto) 6.6 Eos % (Auto) 0.1 Baso % (Auto) 0.1 Neut # (Auto) 8.55 H Lymph # (Auto) 1.05 L Vernon # (Auto) 0.68 H Eos # (Auto) 0.01 Baso # (Auto) 0.01 Immature Gran # (Auto) 0.02 ESR 37 H PT 10.9 INR 1.0 APTT 31 PTT Ratio 1.2 POC Sodium 134 L Sodium 132 L POC Potassium 3.2 L Potassium 3.2 L POC Chloride 95 L Chloride 95 L Carbon Dioxide 29 POC Total CO2 30 Anion Gap 8 POC Anion Gap 13.0 L POC BUN 13 BUN 15 Creatinine 0.93 POC Creatinine 1.0 Est Cr Clr Drug Dosing 72.9 Est GFR ( Amer) 91.5 Est GFR (Non-Af Amer) 78.9 BUN/Creatinine Ratio 16.1 Glucose 138 H POC Glucose (other) 134 H Calcium 10.2 POC Ioniz Calcium Joaquim 1.17 Magnesium 1.8 Total Bilirubin 0.8 AST 18 ALT 16 Alkaline Phosphatase 81 Troponin I High Sens 10.5 C-Reactive Protein 1.55 H Total Protein 7.5 Albumin 4.7 Globulin 2.8 Albumin/Globulin Ratio 1.[address] 12/19/23 12:[address] OF THE BRAIN; CT ANGIOGRAM OF THE BRAIN; CT ANGIOGRAM OF THE NECK CLINICAL HISTORY: Headache. Visual changes. COMPARISON STUDY: MRI of the orbits dated 07/15/2023. TECHNIQUE: Unenhanced axial CT scan of the brain is performed. Subsequently, following the IV administration of 112 of Optiray 320, CT angiogram of the head and neck was performed from the aortic arch to the vertex. Images are reviewed in the axial, sagittal, and coronal planes. 3-D MIPS images are created and assessed. IV contrast was administered without complication. All measurements were calculated based on NASCET criteria. A dose lowering technique was utilized adhering to the principles of ALARA. CT DOSE: 1207.86 mGy.cm FINDINGS: Brain parenchyma: There is age-related involutional change noting minimal microangiopathic disease. There is no hemorrhage, mass effect, or evidence of acute territorial ischemia by CT criteria. A 1.1 cm enhancing extra-axial nodule along the right frontal convexity is seen on images #142. The appearance is typical for a small meningioma. No additional enhancing lesion is suggested On the angiogram phase images. The ventricles, sulci, and cisterns are prominent secondary to involutional change. Cavum septum pellucidum is incidentally noted. Calixto-white matter differentiation is preserved. No extra-axial fluid collection is seen. Thoracic aorta: There is atherosclerotic calcification of the thoracic aorta. Visualized portions of the thoracic aorta are normal in caliber. The aortic arch demonstrates standard 3-vessel anatomy. Right carotid arterial system: The right common carotid artery is widely patent, as are the right internal and external carotid arteries. Mild plaque is noted in the carotid bulb. Left carotid arterial system: The left common carotid artery is widely patent, as are the left internal and external carotid arteries. Mild calcified plaque is noted in the carotid bulb. Vertebral arteries: The vertebral arteries are widely patent bilaterally noting left-sided dominance. Subclavian arteries: Widely patent bilaterally. Intracranial vasculature: There is atherosclerotic calcification of the cavernous carotid and vertebral arteries. The [place] of [place] is developmentally complete. The left A1 segment is diminutive. The internal carotid arteries are patent at the skull base, as are the anterior and middle cerebral arteries bilaterally. There is high-grade focal stenosis of the intra cranial right vertebral artery at the skull base seen on axial image #30. The vertebral arteries and basilar artery are otherwise patent. The posterior cerebral arteries are patent. The left vertebral artery is dominant. There is no aneurysm, high-grade stenosis, or focal vessel cut off seen throughout the intracranial circulation. Jugular veins: Patent bilaterally. Dural sinuses: Patent. Lung apices: Partially visualized upper lobe lung parenchyma appears clear. Soft tissues: The visualized pharyngeal soft tissues are normal in appearance noting angiographic phase technique. The oropharyngeal airway appears widely patent. The salivary and thyroid glands are normal in appearance. No cervical lymphadenopathy is seen. Skeletal structures: The skeletal structures are osteopenic. The calvarium appears intact. The cervical spine is maintained noting mild multilevel spondylosis. Orbits: The bony orbits are intact. Orbital contents are normal as visualized noting a left ocular lens implant. Sinuses and mastoids: There is moderate mucosal thickening in the left maxillary antrum. Mild mucosal thickening is seen in the right maxillary sinus, and there is complete opacification of the left sphenoid sinus which contains calcified debris. There is moderate mucosal thickening within the left posterior ethmoid sinuses. Mild mucosal thickening is seen in the right ethmoid sinuses, the right sphenoid sinus, and the frontal sinuses. The mastoid air cells are well pneumatized. IMPRESSION: 1. There is no hemorrhage, mass effect, or evidence of acute territorial ischemia by CT criteria. 2. 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 3. Otherwise unremarkable CT angiogram of the brain. 4. Unremarkable CT angiogram of the neck. 5. A 1.1 cm enhancing extra-axial nodule along the right frontal convexity is typical for a meningioma. 6. Paranasal sinus disease as above. ACT 112: Negative or not required by law. Electronically signed by: Alessandro Zuniga M.D. 12/19/2023 1:09 PM Head CTA 12/19/23 12:[address] OF THE BRAIN; CT ANGIOGRAM OF THE BRAIN; CT ANGIOGRAM OF THE NECK CLINICAL HISTORY: Headache. Visual changes. COMPARISON STUDY: MRI of the orbits dated 07/15/2023. TECHNIQUE: Unenhanced axial CT scan of the brain is performed. Subsequently, following the IV administration of 112 of Optiray 320, CT angiogram of the head and neck was performed from the aortic arch to the vertex. Images are reviewed in the axial, sagittal, and coronal planes. 3-D MIPS images are created and assessed. IV contrast was administered without complication. All measurements were calculated based on NASCET criteria. A dose lowering technique was utilized adhering to the principles of ALARA. CT DOSE: 1207.86 mGy.cm FINDINGS: Brain parenchyma: There is age-related involutional change noting minimal microangiopathic disease. There is no hemorrhage, mass effect, or evidence of acute territorial ischemia by CT criteria. A 1.1 cm enhancing extra-axial nodule along the right frontal convexity is seen on images #142. The appearance is typical for a small meningioma. No additional enhancing lesion is suggested On the angiogram phase images. The ventricles, sulci, and cisterns are prominent secondary to involutional change. Cavum septum pellucidum is incidentally noted. Calixto-white matter differentiation is preserved. No extra-axial fluid collection is seen. Thoracic aorta: There is atherosclerotic calcification of the thoracic aorta. Visualized portions of the thoracic aorta are normal in caliber. The aortic arch demonstrates standard 3-vessel anatomy. Right carotid arterial system: The right common carotid artery is widely patent, as are the right internal and external carotid arteries. Mild plaque is noted in the carotid bulb. Left carotid arterial system: The left common carotid artery is widely patent, as are the left internal and external carotid arteries. Mild calcified plaque is noted in the carotid bulb. Vertebral arteries: The vertebral arteries are widely patent bilaterally noting left-sided dominance. Subclavian arteries: Widely patent bilaterally. Intracranial vasculature: There is atherosclerotic calcification of the cavernous carotid and vertebral arteries. The [place] of [place] is developmentally complete. The left A1 segment is diminutive. The internal carotid arteries are patent at the skull base, as are the anterior and middle cerebral arteries bilaterally. 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 The vertebral arteries and basilar artery are otherwise patent. The posterior cerebral arteries are patent. The left vertebral artery is dominant. There is no aneurysm, high-grade stenosis, or focal vessel cut off seen throughout the intracranial circulation. Jugular veins: Patent bilaterally. Dural sinuses: Patent. Lung apices: Partially visualized upper lobe lung parenchyma appears clear. Soft tissues: The visualized pharyngeal soft tissues are normal in appearance noting angiographic phase technique. The oropharyngeal airway appears widely patent. The salivary and thyroid glands are normal in appearance. No cervical lymphadenopathy is seen. Skeletal structures: The skeletal structures are osteopenic. The calvarium appears intact. The cervical spine is maintained noting mild multilevel spondylosis. Orbits: The bony orbits are intact. Orbital contents are normal as visualized noting a left ocular lens implant. Sinuses and mastoids: There is moderate mucosal thickening in the left maxillary antrum. Mild mucosal thickening is seen in the right maxillary sinus, and there is complete opacification of the left sphenoid sinus which contains calcified debris. There is moderate mucosal thickening within the left posterior ethmoid sinuses. Mild mucosal thickening is seen in the right ethmoid sinuses, the right sphenoid sinus, and the frontal sinuses. The mastoid air cells are well pneumatized. IMPRESSION: 1. There is no hemorrhage, mass effect, or evidence of acute territorial ischemia by CT criteria. 2. 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 3. Otherwise unremarkable CT angiogram of the brain. 4. Unremarkable CT angiogram of the neck. 5. A 1.1 cm enhancing extra-axial nodule along the right frontal convexity is typical for a meningioma. 6. Paranasal sinus disease as above. ACT 112: Negative or not required by law. Electronically signed by: Alessandro Zuniga M.D. 12/19/2023 1:09 PM Neck CTA 12/19/23 12:[address] OF THE BRAIN; CT ANGIOGRAM OF THE BRAIN; CT ANGIOGRAM OF THE NECK CLINICAL HISTORY: Headache. Visual changes. COMPARISON STUDY: MRI of the orbits dated 07/15/2023. TECHNIQUE: Unenhanced axial CT scan of the brain is performed. Subsequently, following the IV administration of 112 of Optiray 320, CT angiogram of the head and neck was performed from the aortic arch to the vertex. Images are reviewed in the axial, sagittal, and coronal planes. 3-D MIPS images are created and ass essed. IV contrast was administered without complication. All measurements were calculated based on NASCET criteria. A dose lowering technique was utilized adhering to the principles of ALARA. CT DOSE: 1207.86 mGy.cm FINDINGS: Brain parenchyma: There is age-related involutional change noting minimal microangiopathic disease. There is no hemorrhage, mass effect, or evidence of acute territorial ischemia by CT criteria. A 1.1 cm enhancing extra-axial nodule along the right frontal convexity is seen on images #142. The appearance is typical for a small meningioma. No additional enhancing lesion is suggested On the angiogram phase images. The ventricles, sulci, and cisterns are prominent secondary to involutional change. Cavum septum pellucidum is incidentally noted. Calixto-white matter differentiation is preserved. No extra-axial fluid collection is seen. Thoracic aorta: There is atherosclerotic calcification of the thoracic aorta. Visualized portions of the thoracic aorta are normal in caliber. The aortic arch demonstrates standard 3-vessel anatomy. Right carotid arterial system: The right common carotid artery is widely patent, as are the right internal and external carotid arteries. Mild plaque is noted in the carotid bulb. Left carotid arterial system: The left common carotid artery is widely patent, as are the left internal and external carotid arteries. Mild calcified plaque is noted in the carotid bulb. Vertebral arteries: The vertebral arteries are widely patent bilaterally noting left-sided dominance. Subclavian arteries: Widely patent bilaterally. Intracranial vasculature: There is atherosclerotic calcification of the cavernous carotid and vertebral arteries. The [place] of [place] is developmentally complete. The left A1 segment is diminutive. The internal carotid arteries are patent at the skull base, as are the anterior and middle cerebral arteries bilaterally. 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 The vertebral arteries and basilar artery are otherwise patent. The posterior cerebral arteries are patent. The left vertebral artery is dominant. There is no aneurysm, high-grade stenosis, or focal vessel cut off seen throughout the intracranial circulation. Jugular veins: Patent bilaterally. Dural sinuses: Patent. Lung apices: Partially visualized upper lobe lung parenchyma appears clear. Soft tissues: The visualized pharyngeal soft tissues are normal in appearance noting angiographic phase technique. The oropharyngeal airway appears widely pat ent. The salivary and thyroid glands are normal in appearance. No cervical lymphadenopathy is seen. Skeletal structures: The skeletal structures are osteopenic. The calvarium appears intact. The cervical spine is maintained noting mild multilevel spondylosis. Orbits: The bony orbits are intact. Orbital contents are normal as visualized noting a left ocular lens implant. Sinuses and mastoids: There is moderate mucosal thickening in the left maxillary antrum. Mild mucosal thickening is seen in the right maxillary sinus, and there is complete opacification of the left sphenoid sinus which contains calcified debris. There is moderate mucosal thickening within the left posterior ethmoid sinuses. Mild mucosal thickening is seen in the right ethmoid sinuses, the right sphenoid sinus, and the frontal sinuses. The mastoid air cells are well pneumatized. IMPRESSION: 1. There is no hemorrhage, mass effect, or evidence of acute territorial ischemia by CT criteria. 2. 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 3. Otherwise unremarkable CT angiogram of the brain. 4. Unremarkable CT angiogram of the neck. 5. A 1.1 cm enhancing extra-axial nodule along the right frontal convexity is typical for a meningioma. 6. Paranasal sinus disease as above. ACT 112: Negative or not required by law. Electronically signed by: Alessandro Zuniga M.D. 12/19/2023 1:09 PM ECG Additional Comments: Reviewed personally showing NSR, few PVCs. No ST wave inversions or signs of ischemia. Code Status & VTE Plan Code Status DNR/DNI - discussed with pt at bedside Supervising Physician Co-Signing Physician Notes Attending addendum: The patient was seen and examined in the emergency room He has been complaining of right frontal headache and left visual abnormality which has been going on for the last few days Denies any other neurological symptoms He was evaluated by patient escort in [place] without any significant findings and he has an appointment with neurologist on Thursday for evaluation of his headache and visual symptoms He denies any other significant symptoms On examination Sitting on a chair without any acute distress but looks anxious Remains hemodynamically stable Chest-clear to auscultate bilaterally Heart-S1-S2, regular Abdomen-benign Extremities-negative for any edema RURAL SOCIOLOGIST-alert, awake and oriented x 3. No focal sensory or motor deficit appreciated Gross examination of the visual field showed that he is little blurred with the left eye vision without any abnormality in the eye movement His labs, EKG and imaging studies reviewed CTA of the head and neck and CT of the head was remarkable for high-grade right vertebral artery stenosis at the base and also 1.1 cm enhancing extra-axial nodule along the right frontal convexity typical for meningioma MRI of the head confirmed the meningioma and did not show any other significant findings but mention about paranasal sinus disease. Assessment and plan Headache-could be secondary to paranasal sinus disease Blurred vision with the left eye-recent eye examination was noted to be fairly unremarkable Has 10 mm meningioma on the right frontal convexity Will observe him overnight and likely discharge tomorrow to keep the appointment with the neurologist as an outpatient Will offer Augmentin for possible sinus disease Has been on Eliquis and Plavix for recent stent placement-will continue to Agree with assessment and plan as mentioned above by SERA Ordaz Dr
--- NOTE | 2023-12-19 17:02 | Magnetic Resonance Report ---
MRI OF THE BRAIN WITHOUT IV CONTRAST CLINICAL HISTORY: Headache. Hypertension. COMPARISON STUDY: CT of the brain dated 12/19/2023. TECHNIQUE: MRI of the brain was performed utilizing various T1 and T2-weighted sequences in the axial , sagittal, and coronal planes. IV contrast was not administered for this examination. FINDINGS: Brain parenchyma: There is age-related involutional change noting minimal microangiopathic disease. T here is no hemorrhage or mass effect. There is no restricted diffusion to suggest acute ischemia. Gra y-white matter differentiation is preserved. No extra-axial fluid collection is seen. The cerebellar tonsils are normal in configuration. A 10 mm extra-axial nodule along the right frontal convexity on axial image #12 is typical for a meningioma. Ventricles, sulci, and cisterns: Prominent secondary to involutional change. Cavum septum pellucidum is incidentally noted. Pituitary and sella: Unremarkable. Intracranial vasculature: Normal flow voids are maintained at the skull base. Orbits: The bony orbits are grossly intact. Orbital contents are normal in appearance noting a left o cular lens implant. Sinuses and mastoids: There is opacification of the left sphenoid sinus, as well as several left post erior ethmoid sinuses. Moderate mucosal thickening is seen in the left maxillary antrum. There is mil d mucosal thickening within the frontal sinuses, ethmoid sinuses, and the right sphenoid sinus. There are opacified right mastoid air cells at the petrous apex. The mastoid air cells are otherwise clear . Calvarium: Unremarkable. Cervical cord: Partially visualized cervical spinal cord is normal in morphology and signal intensity . IMPRESSION: 1. No acute intracranial abnormality. 2. Paranasal sinus disease as above, as well as a right mastoid effusion of the petrous apex. 3. A 10 mm meningioma is again seen on the right frontal convexity. ACT 112: Negative or not required by law. Electronically signed by: Alessandro Zuniga M.D. 12/19/2023 5:00 PM
[2023-12-19] MEDS ORDERED: PHARMACIST DISCHARGE MED REC CONSULT PRN (19:16)
[2023-12-19] MEDS: CLOPIDOGREL BISULFATE 75 MG TAB PO SCH (20:22)
[2023-12-19] MEDS: APIXABAN 5 MG TABLET PO SCH (20:22)
[2023-12-19] MEDS: PRAVASTATIN SOD 40 MG TAB PO SCH (20:22)
[2023-12-19] MEDS: AMOXICILLIN/CLAVULANATE 875 MG TAB PO SCH (20:22)
[2023-12-20 06:22] LABS: Basophils # (auto) 0.03 K/uL (0.00-0.20); Basophils % (auto) 0.4 %; Eosinophils # (auto) 0.09 K/uL (0.00-0.50); Eosinophils % (auto) 1.3 %; Hematocrit (blood only) 39.7 % (42.0-52.0); Hemoglobin 13.5 g/dl (14.0-18.0); Immature Granulocytes # (auto) 0.02 K/uL (0.01-0.20); Immature Granulocytes % (auto) 0.3 %; Lymphocytes % (auto) 20.2 %; Mean Corpuscular Hemoglobin 30.6 pg (25.0-34.0); Mean Platelet Volume 9.9 fL (9.4-12.4); Monocytes # (auto) 0.65 K/uL (0.11-0.59); Monocytes % (auto) 9.4 %; Neutrophils # (auto) 4.73 K/uL (1.40-6.50); Neutrophils % (auto) 68.4 %; Platelet Count 179 K/uL (130-400); RDW Coefficient of Variation 12.2 % (11.5-14.5); RDW Standard Deviation 40.4 fL (36.4-46.3); Red Blood Count 4.41 M/uL (4.70-6.10); White Blood Count 6.92 K/ul (4.8-10.8)
[2023-12-20 06:34] LABS: BUN Creatinine Ratio 16.5 (10-20); Calcium 9.4 mg/dl (8.6-10.3); Chol HDL Ratio 2.8 (0-5); Creatinine Clr Calc Pharmacy 74.2 ml/min; Est GFR (African American) 93.9 ml/min; Potassium 3.3 mmol/L (3.5-5.1)
[2023-12-20] MEDS: ACETAMINOPHEN 1,000 MG/100 ML VIAL IV STA (06:41)
[2023-12-20] MEDS: MULTIVITAMIN TAB PO SCH (08:09)
[2023-12-20] MEDS: POTASSIUM CHLORIDE CRTAB 20 MEQ TABCR PO STA (08:09)
[2023-12-20] MEDS: hydroCHLOROthiazide 25 MG TAB PO SCH (08:09)
[2023-12-20] MEDS: lisinopril 40 MG TAB PO SCH (08:09)
[2023-12-20] MEDS: METOPROLOL SUCC 25MG EXT REL TAB PO SCH (08:09)
--- NOTE | 2023-12-20 08:55 | Electrocardiogram Report ---
Test Reason : Blood Pressure : / mmHG Vent. Rate : 067 BPM Atrial Rate : 067 BPM P-R Int : 180 ms QRS Dur : 110 ms QT Int : 422 ms P-R-T Axes : 060 -37 046 degrees QTc Int : 445 ms Sinus rhythm with occasional Premature ventricular complexes Left axis deviation Incomplete right bundle branch block Minimal voltage criteria for LVH, may be normal variant Abnormal ECG When compared with ECG of 18-SEP-2023 06:30, Premature ventricular complexes are now Present Confirmed by Oscar Hutchinson ([id number]) on 12/20/2023 8:55:17 AM Referred By: REFERRED SELF Confirmed By:Oscar Hutchinson
--- NOTE | 2023-12-20 11:02 | Hospitalist Progress Note ---
Date of Service December 20, 2023 Assessment & Plan (1) Neurological deficit present: (2) Stented coronary artery: (3) PAF (paroxysmal atrial fibrillation): (4) Atrial flutter: (5) HTN (hypertension): (6) ANA on CPAP: (7) HLD (hyperlipidemia): (8) Prediabetes: Plan: Neurological deficits with left eye blurred vision Headache of unknown etiology -CTA of the head and neck was completed, shows high-grade focal stenosis of the right vertebral artery, also noted is a 1.1 cm meningioma -MRI was completed of the orbits in June 2023 which did not show any abnormalities. -Neuro consult, scheduled to see them as an outpatient on 12/20 at 08 100, attempt to keep this appointment -Stroke order set completed -Last A1c of 6.1 on 08/27/2023, lipid panel reviewed and within normal limits from last year, repeat with a.m. labs for completeness -Echo completed in 09/16/2023 showing an EF of 55 to 59%, mild diffuse left ventricular hypokinesis with stress, diastolic function is mildly abnormal, grade 1, mild mitral regurg, atrial septal aneurysm,-no need to repeat at this time Headache-could be secondary to paranasal sinus disease Blurred vision with the left eye-recent eye examination was noted to be fairly unremarkable Has 10 mm meningioma on the right frontal convexity Has been on Augmentin for possible sinus disease-will finish the course for a total of 7 days Has been on Eliquis and Plavix for recent stent placement-will continue to Remains medically stable without any other significant symptoms Left eye visual defects remains as it is Has an appointment with the neurologist for in person visit tomorrow morning Will give him the images of disc to take with him Hypertensive urgency -Patient is on metoprolol, HCTZ, lisinopril at home -Labetalol IV 10 mg IV given in the ER, continue as needed with holding parameters to improve BP, Improved to 135/80 at the time of my visit -Likely contributing to headache today Blood pressure is well-controlled CAD A-fib/A-flutter on Eliquis HTN/HLD -Status post ablation -Maintained on Eliquis and Plavix -Beta-vickey, RICHARD, HCTZ Prediabetes -A1c as noted above, trend glucoses -Diet and exercise to be encouraged hospital stay ANA - Cont CPAP HS DVT ppx: teds, scds, plavix and eliquis Lines: PIV x 1 FEN/GI: HH diet CODE: DNR/DNI Dispo: From home, likely to remain in the hospital x 1-2 days Will be discharged home this afternoon Admission and Anticipated Discharge Date Admission Date: December 19, 2023 Subjective 12/20/2023 The patient was seen and examined in medical telemetry unit He has been complaining of a headache on the left frontal area Still has left visual field defect as before No new neurological symptoms Review of Systems Review of Systems: All systems reviewed and are unremarkable except as noted below Physical Exam Physical Exam: Sitting on a chair without any acute distress Constitutional: well developed, well nourished and average body habitus; not ill appearing Eyes: PERRL, conjunctivae normal, anicteric sclerae ENMT: external ear and nose normal, oropharynx normal Neck: trachea midline, no thyromegaly Respiratory: no respiratory distress Auscultation: lungs clear to auscultation bilaterally Cardiovascular: Rate/Rhythm: regular rate and regular rhythm; not tachycardic Heart Sounds: normal S1 and normal S2; no murmur Extremities: no edema Gastrointestinal (Abdomen): Inspection/Auscultation: normal bowel sounds; abdomen not distended Percussion/Palpation: abdomen soft; abdomen nontender Musculoskeletal: No acute arthritis involving any of the joints Neurologic: normal touch/pain/proprioception and moves all extremities; no focal motor deficits Psychiatric: A+Ox3, euthymic affect Lymphatic: no cervical or axillary lymphadenopathy Results & Data Results & Data Vital Signs (Past 12 Hours) Vital Signs Temp Pulse Pulse Resp BP Pulse Ox O2 Del Method 12/20/23 09:12 54 L 12/20/23 07:45 36.7 C 81 16 122/75 96 Room Air 12/20/23 03:06 36.7 C 68 16 167/85 H 98 Room Air 12/19/23 23:08 36.6 C 59 L 16 160/79 H 96 Room Air Laboratory Results Short CBC 12/19/23 12/20/23 Range/Units 12:05 05:39 WBC 10.32 6.92 (4.8-10.8) K/ul Hgb 14.4 13.5 L (14.0-18.0) g/dl Hct 41.5 L 39.7 L (42.0-52.0) % Plt Count 202 179 (130-400) K/uL BMP 12/19/23 12/20/23 12:05 05:39 Sodium 132 L 134 L Potassium 3.2 L 3.3 L Chloride 95 L 97 L Carbon Dioxide 29 31 BUN 15 15 Creatinine 0.93 0.91 Glucose 138 H 119 H Calcium 10.2 9.4 Liver Function 12/19/23 Range/Units 12:05 Total Bilirubin 0.8 (0.2-1.0) mg/dl AST 18 (13-39) U/L ALT 16 (7-52) U/L Alkaline Phosphatase 81 (34-104) U/L Albumin 4.7 (3.4-5.0) gm/dl Medications Administered Current Inpatient Medications Amoxicillin/Clavulanate Potassium (Amoxicillin/Clavulanate 875 Mg Tab) 1 tab PO BIDM [facility]; Protocol Stop: 12/26/23 19:29 Last Admin: 12/20/23 08:09 Dose: 1 tab Apixaban (Apixaban 5 Mg Tablet) 5 mg PO BID [facility] Stop: 01/18/24 20:59 Last Admin: 12/20/23 08:09 Dose: 5 mg Clopidogrel Bisulfate (Clopidogrel Bisulfate 75 Mg Tab) 75 mg PO HS [facility] Stop: 01/18/24 20:59 Last Admin: 12/19/23 20:22 Dose: 75 mg Hydrochlorothiazide (Hydrochlorothiazide 25 Mg Tab) 25 mg PO DAILY [facility] Stop: 01/19/24 08:59 Last Admin: 12/20/23 08:09 Dose: 25 mg Lisinopril (Lisinopril 40 Mg Tab) 40 mg PO DAILY [facility] Stop: 01/19/24 08:59 Last Admin: 12/20/23 08:09 Dose: 40 mg Metoprolol Succinate (Metoprolol Succ 25mg Ext Rel Tab) 25 mg PO QAM [facility] Stop: 01/19/24 08:59 Last Admin: 12/20/23 08:09 Dose: 25 mg Miscellaneous Information (Pharmacist Discharge Med Rec Consult) 1 each N/A UD PRN PRN Reason: Consult Stop: 01/18/24 19:15 Multivitamins (Multivitamin Tab) 1 tab PO QAM [facility] Stop: 01/19/24 08:59 Last Admin: 12/20/23 08:09 Dose: 1 tab Pravastatin Sodium (Pravastatin Sod 40 Mg Tab) 40 mg PO HS [facility] Stop: 01/18/24 20:59 Last Admin: 12/19/23 20:22 Dose: 40 mg
--- NOTE | 2023-12-20 12:29 | Communication Note ---
Date of Service: December 20, 2023 By CMS guidelines, a determination that the admission or continued stay is not medically necessary has been made by a member of the UR committee and a physi niranjan for this hospital stay, therefore a Code 44 will be completed and the Inpatient admission will be changed to outpatient.
[2023-12-21 07:24] LABS: Estimated Average Glucose 131 mg/dl; Hemoglobin A1C 6.2 % (4.5-5.6)
--- NOTE | 2023-12-30 11:48 | Discharge Summary ---
Date of Service December 30, 2023 Late discharge summary for 12/20/2023 Admission HPI Per Admitting Provider This is a 78-year-old male with PMHx of a flutter/paroxysmal A-fib on Eliquis, tachybradycardia syndrome, HTN, HLD, ANA, BPH with LUTS, prediabetes, who presents to the hospital with worsening left eye blurred vision. He was seen by ophthalmology, Dr. Sudarshan Zuleta and Dr. Denis on 12/17/2023 for increased pressure behind the left eye and increased headache as the day goes on, and happens nearly every other day. Denied any jaw pain or ringing in the ears. No fever, nausea or vomiting, he has routine eye exams and his last one prior to this was 6 weeks ago. At this visit it was determined that there was no clear ophthalmologic etiology on exam. He is scheduled to see neurology as outpatient on 12/21/2023 at 0800. Remotely, he had issues with the same eye last March 2023 where he had accidentally bumped into a wheelbarrow handle when doing yard work at home causing eye issues. It had resolved by May 2023. He had an MRI of eye orbits done here at [facility] on 07/15/23 but not of the brain. Admission Exam Per Admitting Provider Physical Exam: General: awake, alert, no apparent distress, white male Head: Normocephalic, atraumatic ENT: PERRL, EOMI, peripheral vision is intact bilaterally. + difficulty with counting number of fingers I am holding up at about 10 feet away with the no pharyngeal exudate, mucous membranes moist, TM pearly tiwari bilaterally, no erythema or edema. Chest: Clear to auscultation, on room air, no adventitious breath sounds Cardiac: Regular rate and rhythm, few PVCs, no murmur, no JVD, normal peripheral pulses, good capillary refill Abdominal: NABS x 4 quadrants, soft, nondistended, nontender to palpation, no rebound or guarding Extremities: Normal inspection, no peripheral edema or erythema, calfs nontender to palpation Psych: Normal mood and affect Neuro: AAO x 3, strength intact bilaterally and rated 5/5, no motor deficits, follows all commands, visual testing is intact except for reported blurred vision as above. No peripheral field deficits, speech is clear, no peripheral sensory deficits Principal Diagnosis Left eye visual defects, left frontal headache,CAD,AF, hypertension,10mm Meningioma Rt Frontal convexity, sinusitis Discharge Exam Sitting on a chair without any acute distress Constitutional well developed, well nourished and average body habitus; not ill appearing Eyes PERRL, conjunctivae normal, anicteric sclerae ENMT external ear and nose normal, oropharynx normal Neck trachea midline, no thyromegaly Respiratory no respiratory distress Auscultation: lungs clear to auscultation bilaterally Cardiovascular Rate/Rhythm: regular rate and regular rhythm; not tachycardic Heart Sounds: normal S1 and normal S2; no murmur Extremities: no edema Gastrointestinal (Abdomen) Inspection/Auscultation: normal bowel sounds; abdomen not distended Percussion/Palpation: abdomen soft; abdomen nontender Neurologic normal touch/pain/proprioception and moves all extremities; no focal motor deficits Psychiatric A+Ox3, euthymic affect Lymphatic no cervical or axillary lymphadenopathy Discharge Data Allergies Allergy/AdvReac Type Severity Reaction Status Date / Time No Known Allergies Allergy Verified 12/19/23 15:24 Consultations 12/19/23 14:53 ED Decision to Admit Stat 12/20/23 12:04 Burn CD for patient Routine Ordered Studies 12/19/23 12:01 CT angio head w con Stat CT angio neck with con Stat CT head/brain wo con Stat 12/19/23 14:52 MRI Brain [MR brain wo con] Stat Hospital Course (1) Neurological deficit present: (2) Stented coronary artery: (3) PAF (paroxysmal atrial fibrillation): (4) Atrial flutter: (5) HTN (hypertension): (6) ANA on CPAP: (7) HLD (hyperlipidemia): (8) Prediabetes: Neurological deficits with left eye blurred vision Headache of unknown etiology -CTA of the head and neck was completed, shows high-grade focal stenosis of the right vertebral artery, also noted is a 1.1 cm meningioma -MRI was completed of the orbits in June 2023 which did not show any abnormalities. -Neuro consult, scheduled to see them as an outpatient on 12/20 at 08 100, attempt to keep this appointment -Stroke order set completed -Last A1c of 6.1 on 08/27/2023, lipid panel reviewed and within normal limits from last year, repeat with a.m. labs for completeness -Echo completed in 09/16/2023 showing an EF of 55 to 59%, mild diffuse left ventricular hypokinesis with stress, diastolic function is mildly abnormal, grade 1, mild mitral regurg, atrial septal aneurysm,-no need to repeat at this time Headache-could be secondary to paranasal sinus disease Blurred vision with the left eye-recent eye examination was noted to be fairly unremarkable Has 10 mm meningioma on the right frontal convexity Has been on Augmentin for possible sinus disease-will finish the course for a total of 7 days Has been on Eliquis and Plavix for recent stent placement-will continue to Remains medically stable without any other significant symptoms Left eye visual defects remains as it is Has an appointment with the neurologist for in person visit tomorrow morning Will give him the images of disc to take with him Hypertensive urgency -Patient is on metoprolol, HCTZ, lisinopril at home -Labetalol IV 10 mg IV given in the ER, continue as needed with holding parameters to improve BP, Improved to 135/80 at the time of my visit -Likely contributing to headache today Blood pressure is well-controlled CAD A-fib/A-flutter on Eliquis HTN/HLD -Status post ablation -Maintained on Eliquis and Plavix -Beta-vickey, RICHARD, HCTZ Prediabetes -A1c as noted above, trend glucoses -Diet and exercise to be encouraged hospital stay ANA - Cont CPAP HS DVT ppx: teds, scds, plavix and eliquis Lines: PIV x 1 FEN/GI: HH diet CODE: DNR/DNI Dispo: From home, likely to remain in the hospital x 1-2 days Will be discharged home this afternoon Total Time Total Time Spent Total Time Spent (In Minutes): 35 minutes Discharge Plan Discharge Items Patient Disposition: Home - Self-Care Reason For Visit: NEUROLOGICAL DEFICIT Discharge Diagnosis: Left eye visual defects, left frontal headache,CAD,AF, hypertension,10mm Meningioma Rt Frontal convexity, sinusitis Condition on Discharge: Good Activity: Resume your previous activity Non-emergency contact: Primary Care Provider Call non-emergency contact if: you have any medication questions and your s ymptoms worsen Follow-up/Referrals: Aaron Stevens MD [Primary Care Provider] - (Your doctor's office will call you with an appointment within 7 days) Diet: Heart Healthy Addtl Attending Provider Instructions: Please finish the course of antibiotic You can always try some probiotics [id number] Strongly advised to keep appointment with the neurologist tomorrow Please take your medications as advised Pending Studies at Discharge: No Stand-Alone Forms: My [facility], Smoking Cessation, Medications to Prevent Stroke Medications and DC Order Prescriptions: New amoxicillin-pot clavulanate 875-125 mg Tablet 1 tab PO BIDM Qty: 13 0RF Continued lisinopril 40 mg tablet 40 mg PO DAILY pravastatin 40 mg tablet 40 mg PO HS multivitamin Tablet 1 tab PO QAM Eliquis 5 mg Tablet 5 mg PO BID Qty: 60 1RF metoprolol succinate 25 mg tablet extended release 24 hr 25 mg PO QAM clopidogrel 75 mg tablet 75 mg PO HS hydrochlorothiazide 25 mg tablet 25 mg PO DAILY Discharge Orders: Discharge Order (Routine); Ordered 12/20/23 Ordered By: Crystal Garrett Admission Data Admit Date/Time: 12/19/23 15:45 Attending Provider: Crystal Garrett Admit Provider: Crystal Garrett Primary Care Provider: Aaron Stevens Other Providers: Crystal Garrett Other Interventions: Discharge Summary Assessment (RN) Last Done: 12/20/23 12:19
== END 2023-12-20 13:00 | disposition home or self-care (01) | DRG 125 ==
LOC: ED 11:35 → 2N 15:45